=== PATIENT | male | born 1940 | race American Indian/Alaskan Native ===

== ENCOUNTER 2017-10-23 16:00 | Inpatient (IN) | payer MEDICARE ==
--- NOTE | 2017-10-23 16:56 | Emergency Department Report ---
Chief Complaint: Weakness Stated Complaint: WEAKNESS Time Seen by Provider: 10/23/17 16:54 - HPI History of Present Illness: pt is a 77 y/o aam with KS, CVA, Dementia, indwelling Peg, sent to ed by Dr. Gonzalez r/o sepsis / failure to thrive, lives with son , son states unable to walk tolerate po , decreased bowel and urine output. - Exam Vital Signs: Vital Signs 10/23/17 16:39 Temperature 98.7 F Pulse Rate 96 H Respiratory 16 Rate Blood Pressure 90/56 O2 Sat by Pulse 98 Oximetry MSE screening note: Focused history and physical exam performed. Due to findings the following was ordered: ED Disposition for MSE Condition: Stable
[2017-10-23 17:40] LABS: Basophils % (Auto) 0.4 % (0.0-1.8); Eosinophils % (Auto) 0.1 % (0.0-4.3); Hemoglobin 12.2 gm/dl (11.8-15.2); Mean Corpuscular HGB Conc 33 % (32-34); Mean Corpuscular Hemoglobin 28 pg (28-32); Mean Corpuscular Volume 86 fl (84-94); Platelet Count 297 K/mm3 (140-440); Red Blood Count 4.31 M/mm3 (3.65-5.03); Red Cell Distribution Width 13.9 % (13.2-15.2)
[2017-10-23 18:00] LABS: Alanine Aminotransferase 49 units/L (7-56); Albumin 3.2 g/dL (3.9-5); Albumin/Globulin Ratio 0.7 %; Alkaline Phosphatase 150 units/L (35-129); Anion Gap 24 mmol/L; BUN/Creatinine Ratio 26; Blood Urea Nitrogen 21 mg/dL (9-20); Calcium 9.3 mg/dL (8.4-10.2); Carbon Dioxide 21 mmol/L (22-30); Chloride 92.7 mmol/L (98-107); Glucose 181 mg/dL (75-100); Potassium 4.3 mmol/L (3.6-5.0); Sodium 133 mmol/L (137-145); Total Protein 8.1 g/dL (6.3-8.2)
[2017-10-23] MEDS ORDERED: NACL 0.9% 1000 ML 1,000 ML IV ONE (20:49)
[2017-10-23 22:07] LABS: Bacteria,Urine 4+ /HPF (Negative); Bilirubin,Urine NEG (Negative); Blood,Urine SM (Negative); Ketones,Urine TR mg/dL (Negative); Leukocyte Esterase,Urine MOD (Negative); Mucus,Urine 3+ /HPF; Nitrite,Urine NEG (Negative)
[2017-10-23 22:08] LABS: WBC,Urine > 182.0 /HPF (0.0-6.0)
[2017-10-23] MEDS ORDERED: ROCEPHIN/NS 1 GM/50 ML 1 GM/50 ML BAG IV ONE (22:17)
--- NOTE | 2017-10-23 22:25 | Emergency Department Report ---
- General Chief complaint: Weakness Stated complaint: WEAKNESS Time Seen by Provider: 10/23/17 16:54 Source: patient, old records reviewed (10/02/17 negative stress test) Mode of arrival: Wheelchair Limitations: No Limitations - History of Present Illness Initial comments: 77-year-old male with a past medical history of Parkinson, diabetes, CAD with MS , CABG with 2 vessel bypass, and hypertension presents to the hospital complaining of generalized weakness and poor by mouth intake. Patient is primarily wheelchair bound and has indwelling James secondary to urinary retention. It is not patient was scheduled for TURP which was canceled since patient was on anticoagulation. Patient lives alone and receives 24-hour care. Caretakers have noted a decline in health over the past few weeks with very poor by mouth intake and inability to walk now. Patient denies any pain, fever , nausea, vomiting, or diarrhea. Patient eats pured food as well as supplementation via PEG tube feeds. - Related Data Home Medications Medication Instructions Recorded Confirmed Last Taken Carbidopa/Levodopa 25-100 [Sinemet 1 tab PO QID 12/21/14 10/08/17 10/06/17 25/100] Lovastatin [Altoprev] 40 mg PO QPM 12/21/14 10/08/17 10/06/17 Zolpidem [Ambien] 10 mg PO HS 12/21/14 10/08/17 10/06/17 Ascorbic Acid [Vitamin C] 500 mg PO DAILY 10/02/17 10/08/17 10/06/17 Cholecalciferol (Vitamin D3) 1,000 unit PO DAILY 10/02/17 10/08/17 10/06/17 [Vitamin D3] Clopidogrel Bisulfate [Plavix] 75 mg PO DAILY 10/02/17 10/08/17 10/06/17 Donepezil HCl 5 mg PO QHS 10/02/17 10/08/17 10/06/17 Metoclopramide [Reglan TAB] 10 mg PO TID 10/02/17 10/08/17 10/06/17 Pentoxifylline 1 tab PO BID 10/02/17 10/08/17 10/06/17 Sennosides [Senna Laxative] 8.6 mg PO DAILY 10/02/17 10/08/17 10/06/17 Timolol 0.5% 1 drop OU DAILY 10/02/17 10/08/17 10/06/17 amLODIPine [Norvasc] 10 mg PO DAILY 10/02/17 10/08/17 10/06/17 guaiFENesin/DEXTROMETHORPHAN 10 ml PO PRN PRN 10/02/17 10/08/17 10/06/17 [Diabetic Tussin Dm Max-Str Liq] Previous Rx's Medication Instructions Recorded Last Taken Type Gabapentin [Neurontin] 100 mg PO Q8HR #90 capsule 10/10/17 Unknown Rx traMADol [Ultram 50 MG tab] 50 mg PO QID PRN #20 tablet 10/10/17 Unknown Rx Allergies Allergy/AdvReac Type Severity Reaction Status Date / Time No Known Allergies Allergy Verified 09/26/17 17:35 ED Review of Systems ROS: Stated complaint: WEAKNESS Other details as noted in HPI Comment: All other systems reviewed and negative Other: Constitutional: No fevers chills Eyes: No eye pain visual changes ENT: No ear pain or throat pain Neck: Denies pain Respiratory: Denies cough wheezing shortness of breath Cardiovascular: Denies chest pain, palpitations, syncope GI: Denies abdominal pain, nausea, vomiting, diarrhea : Indwelling James history a urine tent Musculoskeletal: Denies back pain Skin: Denies rash, lesions, erythema Neurologic: Parkinson's disease with chronic leg weakness Psychiatric: Denies suicidal ideation, hallucinations ED Past Medical Hx - Past Medical History Previous Medical History?: Yes Hx Hypertension: Yes (X 35 YRS) Hx CVA: Yes Hx Heart Attack/AMI: Yes (1993 , 2002) Hx Diabetes: Yes Hx HIV: No Additional medical history: Left hip, Back surgery, Right eye cataract, Recent left eye cataract surgery - Surgical History Past Surgical History?: Yes Hx Coronary Stent: No Hx Open Heart Surgery: Yes (CABG 2000, X2) Additional Surgical History: Left cataract surgery 11-17-2014 - Social History Smoking Status: Never Smoker Substance Use Type: None - Medications Home Medications: Home Medications Medication Instructions Recorded Confirmed Last Taken Type Carbidopa/Levodopa 25-100 [Sinemet 1 tab PO QID 12/21/14 10/08/17 10/06/17 History 25/100] Lovastatin [Altoprev] 40 mg PO QPM 12/21/14 10/08/17 10/06/17 History Zolpidem [Ambien] 10 mg PO HS 12/21/14 10/08/17 10/06/17 History Ascorbic Acid [Vitamin C] 500 mg PO DAILY 10/02/17 10/08/17 10/06/17 History Cholecalciferol (Vitamin D3) 1,000 unit PO DAILY 10/02/17 10/08/17 10/06/17 History [Vitamin D3] Clopidogrel Bisulfate [Plavix] 75 mg PO DAILY 10/02/17 10/08/17 10/06/17 History Donepezil HCl 5 mg PO QHS 10/02/17 10/08/17 10/06/17 History Metoclopramide [Reglan TAB] 10 mg PO TID 10/02/17 10/08/17 10/06/17 History Pentoxifylline 1 tab PO BID 10/02/17 10/08/17 10/06/17 History Sennosides [Senna Laxative] 8.6 mg PO DAILY 10/02/17 10/08/17 10/06/17 History Timolol 0.5% 1 drop OU DAILY 10/02/17 10/08/17 10/06/17 History amLODIPine [Norvasc] 10 mg PO DAILY 10/02/17 10/08/17 10/06/17 History guaiFENesin/DEXTROMETHORPHAN 10 ml PO PRN PRN 10/02/17 10/08/17 10/06/17 History [Diabetic Tussin Dm Max-Str Liq] Gabapentin [Neurontin] 100 mg PO Q8HR #90 capsule 10/10/17 Unknown Rx traMADol [Ultram 50 MG tab] 50 mg PO QID PRN #20 tablet 10/10/17 Unknown Rx ED Physical Exam - General Limitations: No Limitations - Other Other exam information: General: No limitations, patient is alert in no acute distress Head exam: Atraumatic, normocephalic Eyes exam: Normal appearance, pupils equal reactive to light ENT: Moist mucous membrane, normal oropharynx Neck exam: Normal inspection, full range of motion, no meningismus nontender Respiratory exam: Clear to auscultation bilateral, no wheezes, rales, crackles Cardiovascular: Normal rate and rhythm, CABG scar Abdomen: Soft, nondistended, and nontender, with normal bowel sounds, no rebound, or guarding Extremity: Full range of motion normal inspection no deformity : Circumcised, indwelling James catheter Back: Normal Inspection, full range of motion, no tenderness Neurologic: Alert, oriented x3, cranial nerves intact, sensation grossly intact. Patient has not had any antigravity movement of his lower extremities and has mild movement of his toes and feet. 5/5 upper extremity strength. Speech is soft spoken but clear without dysarthria Psychiatric: normal affect, normal mood Skin: Warm, dry, intact ED Course Vital Signs 10/23/17 10/23/17 10/23/17 16:39 20:00 20:05 Temperature 98.7 F Pulse Rate 96 H 96 H Respiratory 16 26 H 16 Rate Blood Pressure 90/56 112/62 O2 Sat by Pulse 98 99 99 Oximetry 10/23/17 10/23/17 10/23/17 20:30 21:00 21:30 Temperature Pulse Rate 96 H 97 H 97 H Respiratory 18 19 25 H Rate Blood Pressure 113/68 125/68 126/73 O2 Sat by Pulse 100 100 100 Oximetry - Reevaluation(s) Reevaluation #1: 10/23/17 22:29 Systolic blood pressure improved prior to administration of normal saline. 1L liter of normal saline and Rocephin initiated in the ED. ED Medical Decision Making - Lab Data Result diagrams: 10/23/17 17:01 10/23/17 17:01 Lab Results 10/23/17 10/23/17 10/23/17 Range/Units 17:01 17:01 21:44 WBC 18.0 H (4.5-11.0) K/mm3 RBC 4.31 (3.65-5.03) M/mm3 Hgb 12.2 (11.8-15.2) gm/dl Hct 37.0 (35.5-45.6) % MCV 86 (84-94) fl MCH 28 (28-32) pg MCHC 33 (32-34) % RDW 13.9 (13.2-15.2) % Plt Count 297 (140-440) K/mm3 Lymph % (Auto) 5.3 L (13.4-35.0) % [place] % (Auto) 6.4 (0.0-7.3) % Eos % (Auto) 0.1 (0.0-4.3) % Baso % (Auto) 0.4 (0.0-1.8) % Lymph # 0.9 L (1.2-5.4) K/mm3 [place] # 1.1 H (0.0-0.8) K/mm3 Eos # 0.0 (0.0-0.4) K/mm3 Baso # 0.1 (0.0-0.1) K/mm3 Seg Neutrophils % 87.8 H (40.0-70.0) % Seg Neutrophils # 15.8 H (1.8-7.7) K/mm3 Sodium 133 L (137-145) mmol/L Potassium 4.3 (3.6-5.0) mmol/L Chloride 92.7 L (98-107) mmol/L Carbon Dioxide 21 L (22-30) mmol/L Anion Gap 24 mmol/L BUN 21 H (9-20) mg/dL Creatinine 0.8 (0.8-1.5) mg/dL Estimated GFR > 60 ml/min BUN/Creatinine Ratio 26 % Glucose 181 H (75-100) mg/dL Calcium 9.3 (8.4-10.2) mg/dL Total Bilirubin 0.70 (0.1-1.2) mg/dL AST 74 H (5-40) units/L ALT 49 (7-56) units/L Alkaline Phosphatase 150 H (35-129) units/L Troponin T 0.024 (0.00-0.029) ng/mL Total Protein 8.1 (6.3-8.2) g/dL Albumin 3.2 L (3.9-5) g/dL Albumin/Globulin Ratio 0.7 % Urine Color Yellow (Yellow) Urine Turbidity Clear (Clear) Urine pH 5.0 (5.0-7.0) Ur Specific [place] 1.020 (1.003-1.030) Urine Protein 100 mg/dl (Negative) mg/dL Urine Glucose (UA) Neg (Negative) mg/dL Urine Ketones Tr (Negative) mg/dL Urine Blood Sm (Negative) Urine Nitrite Neg (Negative) Urine Bilirubin Neg (Negative) Urine Urobilinogen 2.0 (<2.0) mg/dL Ur Leukocyte Esterase Mod (Negative) Urine WBC (Auto) > 182.0 H (0.0-6.0) /HPF Urine RBC (Auto) 138.0 (0.0-6.0) /HPF Urine Bacteria (Auto) 4+ (Negative) /HPF Urine WBC Clumps 3+ /HPF Urine Mucus 3+ /HPF - EKG Data -: EKG Interpreted by Me (KALYAN) EKG shows normal: sinus rhythm, axis (-53), QRS complexes (125), ST-T waves (no ST elevation or T-wave inversion) Rate: normal (97) - EKG Data When compared to previous EKG there are: no significant change (10/07/17) - Radiology Data Radiology results: image reviewed (cxr: naf) - Medical Decision Making Leukocytosis likely secondary to UTI with history urinary retention and swelling James. Urine sample obtained from a new bag placed on the patient however, James was not changed. Patient also has mild hyponatremia. Rocephin and normal saline initiated - Differential Diagnosis uti, pneumonia, dehydation Critical Care Time: No Critical care attestation.: If time is entered above; I have spent that time in minutes in the direct care of this critically ill patient, excluding procedure time. ED Disposition Clinical Impression: UTI (urinary tract infection), Parkinson disease, Weakness, Dysphagia, Gastrostomy present, Leukocytosis, Diabetes, Hx of CABG Disposition: DC-01 TO HOME OR SELFCARE Is pt being admited?: Yes Condition: Stable Time of Disposition: 22:32 (Dr Marquez/hosp)
[2017-10-23] MEDS ORDERED: cefTRIAXone 1 GM in NACL 0.9% 20 ML IV ONE (22:30)
--- NOTE | 2017-10-23 22:31 | History and Physical Report ---
History of Present Illness Chief complaint: I feel weak History of present illness: 77 YO Male with Parkinsons Disease,CVA,CAD S/P CABG, S/P Stent placement, [place], DM , HTN, Urinary Retention S/P indwelling ramos catheter placement presents to ED for evaluation. Pt states that he has been feeling weak and tired for the past week. Pt lives at home and has 24 hour care. Pt private household worker stated that patient has decreased oral intake over the past 2 weeks, as well ad progressive weakness. No reports of fever, chills, CP, Palpitations, NVD, Syncope, productive cough, recent ill contacts. Pt seen and evaluated in ED and found to have Catheter Associated UTI complicated by sepsis. Pt initiated on IV abx, and sepsis protocol initiated. Past History Past Medical History: acute OH, diabetes, hypertension, stroke Past Surgical History: CABG, Other (Left cataract surgery) Social history: single Family history: no significant family history, diabetes, hypertension Medications and Allergies Allergies Allergy/AdvReac Type Severity Reaction Status Date / Time No Known Allergies Allergy Verified 09/26/17 17:35 Home Medications Medication Instructions Recorded Confirmed Last Taken Type Carbidopa/Levodopa 25-100 [Sinemet 1 tab PO QID 12/21/14 10/08/17 10/06/17 History 25/100] Lovastatin [Altoprev] 40 mg PO QPM 12/21/14 10/08/17 10/06/17 History Zolpidem [Ambien] 10 mg PO HS 12/21/14 10/08/17 10/06/17 History Ascorbic Acid [Vitamin C] 500 mg PO DAILY 10/02/17 10/08/17 10/06/17 History Cholecalciferol (Vitamin D3) 1,000 unit PO DAILY 10/02/17 10/08/17 10/06/17 History [Vitamin D3] Clopidogrel Bisulfate [Plavix] 75 mg PO DAILY 10/02/17 10/08/17 10/06/17 History Donepezil HCl 5 mg PO QHS 10/02/17 10/08/17 10/06/17 History Metoclopramide [Reglan TAB] 10 mg PO TID 10/02/17 10/08/17 10/06/17 History Pentoxifylline 1 tab PO BID 10/02/17 10/08/17 10/06/17 History Sennosides [Senna Laxative] 8.6 mg PO DAILY 10/02/17 10/08/17 10/06/17 History Timolol 0.5% 1 drop OU DAILY 10/02/17 10/08/17 10/06/17 History amLODIPine [Norvasc] 10 mg PO DAILY 10/02/17 10/08/17 10/06/17 History guaiFENesin/DEXTROMETHORPHAN 10 ml PO PRN PRN 10/02/17 10/08/17 10/06/17 History [Diabetic Tussin Dm Max-Str Liq] Gabapentin [Neurontin] 100 mg PO Q8HR #90 capsule 10/10/17 Unknown Rx traMADol [Ultram 50 MG tab] 50 mg PO QID PRN #20 tablet 10/10/17 Unknown Rx Active Meds: Active Medications Sodium Chloride (Nacl 0.9% 1000 Ml) 1,000 mls @ 500 mls/hr IV BOLUS ONE Stop: 10/23/17 22:48 Last Admin: 10/23/17 21:44 Dose: 500 mls/hr Ceftriaxone Sodium 1 gm/ (Sodium Chloride) 20 mls @ 20 mls/10 min IV ONCE.ED ONE Stop: 10/23/17 22:39 Review of Systems Constitutional: weakness, malaise, poor appetite, no weight loss, no weight gain , no fever, no chills Ears, nose, mouth and throat: no ear pain, no ear discharge, no tinnitis, no decreased hearing, no nose pain, no nasal congestion Cardiovascular: no chest pain, no orthopnea, no palpitations, no rapid/ irregular heart beat, no edema, no syncope Respiratory: no cough, no cough with sputum, no excessive sputum, no hemoptysis , no shortness of breath Gastrointestinal: no abdominal pain, no nausea, no vomiting, no diarrhea, no constipation Genitourinary Male: no hematuria, no flank pain, no discharge, no urinary frequency, no urinary hesitancy, no nocturia, no incontinence Rectal: no pain, no incontinence, no bleeding Musculoskeletal: no neck stiffness, no neck pain, no shooting arm pain, no arm numbness/tingling, no low back pain, no shooting leg pain, no leg numbness/ tingling Integumentary: no rash, no pruritis, no redness, no sores, no wounds, no jaundice Neurological: no head injury, no transient paralysis, no paralysis, no weakness , no parathesias, no numbness, no tingling, no seizures, no syncope Psychiatric: no anxiety, no memory loss, no sleep disturbances, no insomnia, no hypersomnia, no change in appetite, no change in libido Endocrine: no cold intolerance, no heat intolerance, no polyphagia, no excessive thirst, no polydipsia, no polyuria, no nocturia Hematologic/Lymphatic: no easy bruising, no easy bleeding Allergic/Immunologic: no urticaria, no allergic rhinitis, no wheezing Exam - Constitutional Vitals: Temp Pulse Resp BP Pulse Ox 98.7 F 97 H 25 H 126/73 100 10/23/17 16:39 10/23/17 21:30 10/23/17 21:30 10/23/17 21:30 10/23/17 21:30 General appearance: Present: mild distress, cachectic, disheveled - EENT Eyes: Present: PERRL ENT: hearing intact, clear oral mucosa - Neck Neck: Present: supple, normal ROM - Respiratory Respiratory: bilateral: diminished, wheezing - Cardiovascular Rhythm: irregularly irregular Heart Sounds: Present: S1 & S2. Absent: rub, click - Extremities Extremities: pulses symmetrical, No edema Peripheral Pulses: within normal limits - Abdominal General gastrointestinal: Present: soft, non-tender, non-distended, normal bowel sounds Male genitourinary: Present: normal - Integumentary Integumentary: Absent: clear, warm, dry - Musculoskeletal Musculoskeletal: generalized weakness - Psychiatric Psychiatric: appropriate mood/affect, cooperative - Neurologic Neurologic: CNII-XII intact Results - Labs CBC & Chem 7: 10/23/17 17:01 10/23/17 17:01 Labs: Abnormal lab results 10/23/17 10/23/17 10/23/17 Range/Units 17:01 17:01 21:44 WBC 18.0 H (4.5-11.0) K/mm3 Lymph % (Auto) 5.3 L (13.4-35.0) % Lymph # 0.9 L (1.2-5.4) K/mm3 [place] # 1.1 H (0.0-0.8) K/mm3 Seg Neutrophils % 87.8 H (40.0-70.0) % Seg Neutrophils # 15.8 H (1.8-7.7) K/mm3 Sodium 133 L (137-145) mmol/L Chloride 92.7 L (98-107) mmol/L Carbon Dioxide 21 L (22-30) mmol/L BUN 21 H (9-20) mg/dL Glucose 181 H (75-100) mg/dL AST 74 H (5-40) units/L Alkaline Phosphatase 150 H (35-129) units/L Albumin 3.2 L (3.9-5) g/dL Urine WBC (Auto) > 182.0 H (0.0-6.0) /HPF Assessment and Plan - Patient Problems (1) Catheter-associated urinary tract infection Current Visit: Yes Status: Acute Plan to address problem: IV abx, IVF resuscitation, supportive care (2) Sepsis Current Visit: Yes Status: Acute Plan to address problem: Sepsis Protocol: IV abx, supplemental oxygen, nebs, serial lactic levels, monitor uop q shift, blood cultures, urine cultures. IV pressor support as clinically indicated. (3) Hyponatremia syndrome Current Visit: Yes Status: Acute Plan to address problem: IVF resuscitation, repeat bmp. (4) Metabolic acidosis Current Visit: Yes Status: Acute Plan to address problem: IVF resuscitation, treat sepsis, serial lactic acid levels (5) Parkinsons disease Current Visit: Yes Status: Acute (6) DVT prophylaxis Current Visit: Yes Status: Acute
[2017-10-23] MEDS ORDERED: NACL 0.9% 1000 ML IV ONE (22:32)
[2017-10-23] MEDS ORDERED: VANCOMYCIN VIAL IV ONE (22:32)
[2017-10-23] MEDS ORDERED: ZOFRAN IV PRN (22:32)
[2017-10-23] MEDS ORDERED: TYLENOL PO PRN (22:32)
[2017-10-23] MEDS ORDERED: PROVENTIL IH PRN (22:32)
[2017-10-23] MEDS ORDERED: GUAIFENESIN PO PRN (22:36)
[2017-10-23] MEDS ORDERED: DEXTROMETHORPHAN PO PRN (22:36)
[2017-10-23] MEDS ORDERED: VANCOMYCIN 1,250 MG in NACL 0.9% 250ML 250 ML IV ONE (23:00)
[2017-10-23] MEDS ORDERED: GUAIFENESIN DM SYRUP PO PRN (23:00)
[2017-10-23] MEDS ORDERED: VANCOMYCIN PHARMACY TO DOSE IV SCH (23:00)
[2017-10-24] MEDS ORDERED: NACL 0.9% 1000 ML 1,000 ML ONE (00:20)
[2017-10-24 04:38] LABS: Basophils % (Auto) 0.1 % (0.0-1.8); Eosinophils % (Auto) 0.3 % (0.0-4.3); Hematocrit 31.6 % (35.5-45.6); Hemoglobin 10.8 gm/dl (11.8-15.2); Mean Corpuscular HGB Conc 34 % (32-34); Mean Corpuscular Hemoglobin 29 pg (28-32); Mean Corpuscular Volume 86 fl (84-94); Platelet Count 234 K/mm3 (140-440); Red Blood Count 3.68 M/mm3 (3.65-5.03); Red Cell Distribution Width 14.1 % (13.2-15.2); White Blood Count 14.5 K/mm3 (4.5-11.0)
[2017-10-24] MEDS: NEURONTIN PO SCH ×4 (06:00→22:00)
[2017-10-24] MEDS: ULTRAM PO PRN ×2 (07:53→20:51)
[2017-10-24] MEDS: REGLAN PO SCH ×3 (07:53→20:00)
[2017-10-24] MEDS: SINEMET PO SCH ×4 (09:35→23:10)
[2017-10-24] MEDS: VITAMIN D3 PO SCH (09:35)
[2017-10-24] MEDS: PLAVIX PO SCH (09:35)
[2017-10-24] MEDS: SENOKOT PO SCH (09:35)
[2017-10-24] MEDS: VITAMIN C PO SCH (09:35)
[2017-10-24] MEDS: NORVASC PO SCH (09:36)
[2017-10-24] MEDS: TRENTAL PO SCH ×2 (09:36→23:12)
[2017-10-24] MEDS: TIMOPTIC OU SCH (09:37)
[2017-10-24] MEDS ORDERED: NON-FORMULARY (Cholecalciferol (Vitamin D3) [Vitamin D3] 1,000 UNIT) PO SCH (10:00)
[2017-10-24] MEDS ORDERED: TIMOLOL 0.5% OU SCH (10:00)
[2017-10-24] MEDS ORDERED: NON-FORMULARY (Ascorbic Acid [Vitamin C] 500 MG) PO SCH (10:00)
[2017-10-24] MEDS ORDERED: ROCEPHIN/NS 2 GM/100 ML 2 GM/100 ML BAG IV SCH (10:00)
--- NOTE | 2017-10-24 10:15 | Progress Note ---
Assessment and Plan Assessment and plan: Urinary tract infection, catheter associated. He is on Ceftriaxone, Vancomycin. Sepsis. due to UTI. On Ceftriaxone and Vancomycin. Blood cultures drawn Dysphagia. He had history of dysphagia and has PEG tube which he uses only for medications. Repeat swallow evaluation. Diabetes mellitus Type 2. Check fingerstick Qac and HS CAD s/p stent, CABG. Stable History of stroke Hypertension Full code status History Interval history: Difficulty swallowing, Generalized weakness Hospitalist Physical - Physical exam Narrative exam: GEN APPEARANCE : Not in acute distress,malnourished HEENT: Normocephalic Atraumatic NECK : supple, no JVD LUNGS: clear to auscultation bilaterally, no rales, no wheeze HEART: S1 and S2 regular, tachycardia, no murmurs, rubs or gallop, ABD: Soft, no tenderness, no distension, normal bowel sounds, PEG tube EXT: No edema, no clubbing, no cyanosis NEURO: Awake,alert,oriented x 3, no facial asymmetry,no focal signs, - Constitutional Vitals: Temp Pulse Resp BP Pulse Ox 98.6 F 97 H 18 119/63 97 10/24/17 07:57 10/24/17 09:36 10/24/17 07:57 10/24/17 09:36 10/24/17 07:57 General appearance: Present: cachectic Results - Labs CBC & Chem 7: 10/24/17 04:07 10/23/17 17:01 Labs: Laboratory Last Values WBC 14.5 K/mm3 (4.5-11.0) H 10/24/17 04:07 RBC 3.68 M/mm3 (3.65-5.03) 10/24/17 04:07 Hgb 10.8 gm/dl (11.8-15.2) L 10/24/17 04:07 Hct 31.6 % (35.5-45.6) L 10/24/17 04:07 MCV 86 fl (84-94) 10/24/17 04:07 MCH 29 pg (28-32) 10/24/17 04:07 MCHC 34 % (32-34) 10/24/17 04:07 RDW 14.1 % (13.2-15.2) 10/24/17 04:07 Plt Count 234 K/mm3 (140-440) 10/24/17 04:07 Lymph % (Auto) 7.7 % (13.4-35.0) L 10/24/17 04:07 [place] % (Auto) 7.5 % (0.0-7.3) H 10/24/17 04:07 Eos % (Auto) 0.3 % (0.0-4.3) 10/24/17 04:07 Baso % (Auto) 0.1 % (0.0-1.8) 10/24/17 04:07 Lymph # 1.1 K/mm3 (1.2-5.4) L 10/24/17 04:07 [place] # 1.1 K/mm3 (0.0-0.8) H 10/24/17 04:07 Eos # 0.0 K/mm3 (0.0-0.4) 10/24/17 04:07 Baso # 0.0 K/mm3 (0.0-0.1) 10/24/17 04:07 Seg Neutrophils % 84.4 % (40.0-70.0) H 10/24/17 04:07 Seg Neutrophils # 12.2 K/mm3 (1.8-7.7) H 10/24/17 04:07 Sodium 133 mmol/L (137-145) L 10/23/17 17:01 Potassium 4.3 mmol/L (3.6-5.0) 10/23/17 17:01 Chloride 92.7 mmol/L (98-107) L 10/23/17 17:01 Carbon Dioxide 21 mmol/L (22-30) L 10/23/17 17:01 Anion Gap 24 mmol/L 10/23/17 17:01 BUN 21 mg/dL (9-20) H 10/23/17 17:01 Creatinine 0.8 mg/dL (0.8-1.5) 10/23/17 17:01 Estimated GFR > 60 ml/min 10/23/17 17:01 BUN/Creatinine Ratio 26 % 10/23/17 17:01 Glucose 181 mg/dL (75-100) H 10/23/17 17:01 POC Glucose 132 (70-105) H 10/24/17 07:57 Lactic Acid 0.90 mmol/L (0.7-2.0) 10/24/17 04:07 Calcium 9.3 mg/dL (8.4-10.2) 10/23/17 17:01 Total Bilirubin 0.70 mg/dL (0.1-1.2) 10/23/17 17:01 AST 74 units/L (5-40) H 10/23/17 17:01 ALT 49 units/L (7-56) 10/23/17 17:01 Alkaline Phosphatase 150 units/L (35-129) H 10/23/17 17:01 Troponin T 0.024 ng/mL (0.00-0.029) 10/23/17 17:01 Total Protein 8.1 g/dL (6.3-8.2) 10/23/17 17:01 Albumin 3.2 g/dL (3.9-5) L 10/23/17 17:01 Albumin/Globulin Ratio 0.7 % 10/23/17 17:01 Urine Color Yellow (Yellow) 10/23/17 21:44 Urine Turbidity Clear (Clear) 10/23/17 21:44 Urine pH 5.0 (5.0-7.0) 10/23/17 21:44 Ur Specific [place] 1.020 (1.003-1.030) 10/23/17 21:44 Urine Protein 100 mg/dl mg/dL (Negative) 10/23/17 21:44 Urine Glucose (UA) Neg mg/dL (Negative) 10/23/17 21:44 Urine Ketones Tr mg/dL (Negative) 10/23/17 21:44 Urine Blood Sm (Negative) 10/23/17 21:44 Urine Nitrite Neg (Negative) 10/23/17 21:44 Urine Bilirubin Neg (Negative) 10/23/17 21:44 Urine Urobilinogen 2.0 mg/dL (<2.0) 10/23/17 21:44 Ur Leukocyte Esterase Mod (Negative) 10/23/17 21:44 Urine WBC (Auto) > 182.0 /HPF (0.0-6.0) H 10/23/17 21:44 Urine RBC (Auto) 138.0 /HPF (0.0-6.0) 10/23/17 21:44 Urine Bacteria (Auto) 4+ /HPF (Negative) 10/23/17 21:44 Urine WBC Clumps 3+ /HPF 10/23/17 21:44 Urine Mucus 3+ /HPF 10/23/17 21:44
[2017-10-24] MEDS: cefTRIAXone 2 GM in NACL 0.9% 20 ML IV SCH (10:22)
--- NOTE | 2017-10-24 11:44 | XRay Report ---
FINAL REPORT EXAM: XR CHEST 1V AP HISTORY: weakness and TECHNIQUE: upright single view chest PRIORS: None. FINDINGS: Cardiac and mediastinal contours are unremarkable. No focal pulmonary infiltrate is identified. No pleural fluid collection seen. Pulmonary vasculature is unremarkable. Sternotomy wires are noted. IMPRESSION: Negative single-view chest
[2017-10-24] MEDS: NOVOLOG SUB-Q SCH ×2 (12:26→17:44)
[2017-10-24] MEDS: VANCOMYCIN/NS 1 GM/250 ML 1 GM/250 ML BAG IV SCH (13:28)
[2017-10-24] MEDS ORDERED: NON-FORMULARY (Lovastatin [Altoprev] 40 MG) PO SCH (18:00)
[2017-10-24] MEDS: ARICEPT PO SCH (23:08)
[2017-10-24] MEDS: AMBIEN PO SCH (23:09)
[2017-10-24] MEDS: PRAVACHOL PO SCH (23:10)
[2017-10-25 05:28] LABS: Hematocrit 31.4 % (35.5-45.6); Hemoglobin 10.6 gm/dl (11.8-15.2); Mean Corpuscular HGB Conc 34 % (32-34); Mean Corpuscular Hemoglobin 29 pg (28-32); Mean Corpuscular Volume 85 fl (84-94); Platelet Count 284 K/mm3 (140-440); Red Cell Distribution Width 14.1 % (13.2-15.2); White Blood Count 11.2 K/mm3 (4.5-11.0)
[2017-10-25 05:45] LABS: BUN/Creatinine Ratio 22; Blood Urea Nitrogen 11 mg/dL (9-20); Calcium 8.4 mg/dL (8.4-10.2); Carbon Dioxide 22 mmol/L (22-30); Glucose 138 mg/dL (75-100)
[2017-10-25 05:46] LABS: Anion Gap 18 mmol/L; Chloride 99.7 mmol/L (98-107); Potassium 3.7 mmol/L (3.6-5.0); Sodium 136 mmol/L (137-145)
[2017-10-25] MEDS: REGLAN PO SCH ×3 (07:49→20:30)
[2017-10-25] MEDS: NOVOLOG SUB-Q SCH ×4 (08:13→22:40)
--- NOTE | 2017-10-25 09:26 | Progress Note ---
Assessment and Plan Assessment and plan: Urinary tract infection, catheter associated. He is on Ceftriaxone, Vancomycin. Sepsis. Etiology secondary to UTI. Continue Ceftriaxone and Vancomycin. Follow -up blood cultures Dysphagia. He had history of dysphagia and has PEG tube which he uses only for medications. Repeat swallow evaluation. Diabetes mellitus Type 2. Continue sliding-scale insulin and Accu-Cheks CAD s/p stent, CABG. Stable History of stroke Hypertension Deconditioning. PT eval Full code status History Interval history: no new issues overnight. Hospitalist Physical - Constitutional Vitals: Temp Pulse Resp BP Pulse Ox 98.8 F 68 20 177/69 100 10/25/17 08:21 10/25/17 08:21 10/25/17 08:21 10/25/17 08:21 10/25/17 08:21 General appearance: Present: cachectic - EENT Eyes: Present: PERRL, EOM intact ENT: hearing intact, clear oral mucosa, dentition normal - Neck Neck: Present: supple, normal ROM - Respiratory Respiratory effort: normal Respiratory: bilateral: CTA - Cardiovascular Rhythm: regular Heart Sounds: Present: S1 & S2. Absent: gallop, rub - Extremities Extremities: no ischemia, No edema, Full ROM - Abdominal General gastrointestinal: soft, non-tender, non-distended, normal bowel sounds - Integumentary Integumentary: Present: clear, warm, dry - Neurologic Neurologic: CNII-XII intact, moves all extremities Results - Labs CBC & Chem 7: 10/25/17 04:10 10/25/17 04:10 Labs: Laboratory Last Values WBC 11.2 K/mm3 (4.5-11.0) H 10/25/17 04:10 RBC 3.70 M/mm3 (3.65-5.03) 10/25/17 04:10 Hgb 10.6 gm/dl (11.8-15.2) L 10/25/17 04:10 Hct 31.4 % (35.5-45.6) L 10/25/17 04:10 MCV 85 fl (84-94) 10/25/17 04:10 MCH 29 pg (28-32) 10/25/17 04:10 MCHC 34 % (32-34) 10/25/17 04:10 RDW 14.1 % (13.2-15.2) 10/25/17 04:10 Plt Count 284 K/mm3 (140-440) 10/25/17 04:10 Lymph % (Auto) 7.7 % (13.4-35.0) L 10/24/17 04:07 Ramsey % (Auto) 7.5 % (0.0-7.3) H 10/24/17 04:07 Eos % (Auto) 0.3 % (0.0-4.3) 10/24/17 04:07 Baso % (Auto) 0.1 % (0.0-1.8) 10/24/17 04:07 Lymph # 1.1 K/mm3 (1.2-5.4) L 10/24/17 04:07 Ramsey # 1.1 K/mm3 (0.0-0.8) H 10/24/17 04:07 Eos # 0.0 K/mm3 (0.0-0.4) 10/24/17 04:07 Baso # 0.0 K/mm3 (0.0-0.1) 10/24/17 04:07 Seg Neutrophils % 84.4 % (40.0-70.0) H 10/24/17 04:07 Seg Neutrophils # 12.2 K/mm3 (1.8-7.7) H 10/24/17 04:07 Sodium 136 mmol/L (137-145) L 10/25/17 04:10 Potassium 3.7 mmol/L (3.6-5.0) 10/25/17 04:10 Chloride 99.7 mmol/L (98-107) 10/25/17 04:10 Carbon Dioxide 22 mmol/L (22-30) 10/25/17 04:10 Anion Gap 18 mmol/L 10/25/17 04:10 BUN 11 mg/dL (9-20) 10/25/17 04:10 Creatinine 0.5 mg/dL (0.8-1.5) L 10/25/17 04:10 Estimated GFR > 60 ml/min 10/25/17 04:10 BUN/Creatinine Ratio 22 % 10/25/17 04:10 Glucose 138 mg/dL (75-100) H 10/25/17 04:10 POC Glucose 188 (70-105) H 10/25/17 07:25 Hemoglobin A1c 7.0 % (4-6) H 10/24/17 04:07 Lactic Acid 0.90 mmol/L (0.7-2.0) 10/24/17 04:07 Calcium 8.4 mg/dL (8.4-10.2) 10/25/17 04:10 Total Bilirubin 0.70 mg/dL (0.1-1.2) 10/23/17 17:01 AST 74 units/L (5-40) H 10/23/17 17:01 ALT 49 units/L (7-56) 10/23/17 17:01 Alkaline Phosphatase 150 units/L (35-129) H 10/23/17 17:01 Troponin T 0.024 ng/mL (0.00-0.029) 10/23/17 17:01 Total Protein 8.1 g/dL (6.3-8.2) 10/23/17 17:01 Albumin 3.2 g/dL (3.9-5) L 10/23/17 17:01 Albumin/Globulin Ratio 0.7 % 10/23/17 17:01 Urine Color Yellow (Yellow) 10/23/17 21:44 Urine Turbidity Clear (Clear) 10/23/17 21:44 Urine pH 5.0 (5.0-7.0) 10/23/17 21:44 Ur Specific [place] 1.020 (1.003-1.030) 10/23/17 21:44 Urine Protein 100 mg/dl mg/dL (Negative) 10/23/17 21:44 Urine Glucose (UA) Neg mg/dL (Negative) 10/23/17 21:44 Urine Ketones Tr mg/dL (Negative) 10/23/17 21:44 Urine Blood Sm (Negative) 10/23/17 21:44 Urine Nitrite Neg (Negative) 10/23/17 21:44 Urine Bilirubin Neg (Negative) 10/23/17 21:44 Urine Urobilinogen 2.0 mg/dL (<2.0) 10/23/17 21:44 Ur Leukocyte Esterase Mod (Negative) 10/23/17 21:44 Urine WBC (Auto) > 182.0 /HPF (0.0-6.0) H 10/23/17 21:44 Urine RBC (Auto) 138.0 /HPF (0.0-6.0) 10/23/17 21:44 Urine Bacteria (Auto) 4+ /HPF (Negative) 10/23/17 21:44 Urine WBC Clumps 3+ /HPF 10/23/17 21:44 Urine Mucus 3+ /HPF 10/23/17 21:44
--- NOTE | 2017-10-25 09:32 | Gastroenterology Consultation ---
<PAT RYAN - Last Filed: 10/25/17 10:03> History of Present Illness - Reason for Consult Consult date: 10/25/17 dysphagia Requesting physician: BOWEN HARTLEY - History of Present Illness Patient is a 77 y/o male with PMH of Parkinson's disease, CVA, CAD, TX, DM, HTN , and Urinary retention s/p indwelling ramos catheter placement who presented to the ED with c/o weakness and decreased oral intake. He was found to have a catheter associated UTI on admission and is currently being treated for sepsis. GI has been consulted for dysphagia. He is previously known to our service from a recent consult for dysphagia on 10/08/17. The pt has had chronic oropharyngeal dysphagia due to Parkinson's disease with a G-tube placed 2 years ago, however pt has only been using G-tube for meds up until this point. He reports his dysphagia has progressively worsened over the past 6 weeks with difficultly swallowing liquids and solids with associated coughing with po intake and wt loss. He underwent a modified barium swallow on 10/09/17 that revealed oropharyngeal dysphagia due to Parkinson's. No F/C/NS. No change in bowel habits. No GI bleed, no abd pain, N/V. Past History Past Medical History: acute TX, CAD, diabetes, hypertension, stroke, other ( urinary retention with indwelling ramos catheter) Past Surgical History: CABG, total hip replacement, Other (abd surgery, cataract surgery) Social history: single, Lives alone Family history: no significant family history, diabetes, hypertension Medications and Allergies Allergies Allergy/AdvReac Type Severity Reaction Status Date / Time No Known Allergies Allergy Verified 09/26/17 17:35 Home Medications Medication Instructions Recorded Confirmed Last Taken Type Carbidopa/Levodopa 25-100 [Sinemet 1 tab PO QID 12/21/14 10/24/17 10/06/17 History 25/100] Lovastatin [Altoprev] 40 mg PO QPM 12/21/14 10/24/17 10/06/17 History Zolpidem [Ambien] 10 mg PO HS 12/21/14 10/24/17 10/06/17 History Ascorbic Acid [Vitamin C] 500 mg PO DAILY 10/02/17 10/24/17 10/06/17 History Cholecalciferol (Vitamin D3) 1,000 unit PO DAILY 10/02/17 10/24/17 10/06/17 History [Vitamin D3] Clopidogrel Bisulfate [Plavix] 75 mg PO DAILY 10/02/17 10/24/17 10/06/17 History Donepezil HCl 5 mg PO QHS 10/02/17 10/24/17 10/06/17 History Metoclopramide [Reglan TAB] 10 mg PO TID 10/02/17 10/24/17 10/06/17 History Pentoxifylline 1 tab PO BID 10/02/17 10/24/17 10/06/17 History Sennosides [Senna Laxative] 8.6 mg PO DAILY 10/02/17 10/24/17 10/06/17 History Timolol 0.5% 1 drop OU DAILY 10/02/17 10/24/17 10/06/17 History amLODIPine [Norvasc] 10 mg PO DAILY 10/02/17 10/24/17 10/06/17 History guaiFENesin/DEXTROMETHORPHAN 10 ml PO PRN PRN 10/02/17 10/24/17 10/06/17 History [Diabetic Tussin Dm Max-Str Liq] Gabapentin [Neurontin] 100 mg PO Q8HR #90 capsule 10/10/17 10/24/17 Unknown Rx traMADol [Ultram 50 MG tab] 50 mg PO QID PRN #20 tablet 10/10/17 10/24/17 Unknown Rx Active Meds: Active Medications Acetaminophen (Tylenol) 650 mg PO Q4H PRN PRN Reason: Pain MILD(1-3)/Fever >100.5/BYA Last Admin: 10/24/17 14:22 Dose: 650 mg Albuterol (Proventil) 2.5 mg IH Q4HRT PRN PRN Reason: Shortness Of Breath Amlodipine Besylate (Norvasc) 10 mg PO DAILY [facility] Last Admin: 10/24/17 09:36 Dose: 10 mg Ascorbic Acid (Vitamin C) 500 mg PO DAILY [facility] Last Admin: 10/24/17 09:35 Dose: 500 mg Carbidopa/Levodopa (Sinemet) 1 each PO QID [facility] Last Admin: 10/24/17 23:10 Dose: 1 each Cholecalciferol (Vitamin D3) 1,000 unit PO DAILY [facility] Last Admin: 10/24/17 09:35 Dose: 1,000 unit Clopidogrel Bisulfate (Plavix) 75 mg PO DAILY [facility] Last Admin: 10/24/17 09:35 Dose: 75 mg Donepezil HCl (Aricept) 5 mg PO QHS [facility] Last Admin: 10/24/17 23:08 Dose: 5 mg Gabapentin (Neurontin) 100 mg PO Q8HR [facility] Last Admin: 10/24/17 13:30 Dose: 100 mg Guaifenesin (Guaifenesin Dm Syrup) 10 ml PO Q6H PRN PRN Reason: Cough Ceftriaxone Sodium 2 gm/ (Sodium Chloride) 20 mls @ 20 mls/10 min IV Q24HR [facility] Last Admin: 10/24/17 10:22 Dose: 20 mls/10 min Vancomycin HCl (Vancomycin/Ns 1 Gm/250 Ml) 1 gm in 250 mls @ 166.667 mls/hr IV Q12H [facility] Last Admin: 10/24/17 13:28 Dose: 166.667 mls/hr Insulin Aspart (Novolog) 0 units SUB-Q ACHS [facility] PRN Reason: Protocol Last Admin: 10/25/17 08:13 Dose: 1 units Metoclopramide HCl (Reglan) 10 mg PO TID [facility] Last Admin: 10/25/17 07:49 Dose: 10 mg Ondansetron HCl (Zofran) 4 mg IV Q8H PRN PRN Reason: N/V unrelieved by Reglan Pentoxifylline (Trental) 400 mg PO BID [facility] Last Admin: 10/24/17 23:12 Dose: 400 mg Pravastatin Sodium (Pravachol) 40 mg PO QHS [facility] Last Admin: 10/24/17 23:10 Dose: 40 mg Senna (Senokot) 8.6 mg PO DAILY [facility] Last Admin: 10/24/17 09:35 Dose: 8.6 mg Timolol Maleate (Timoptic) 1 drops OU QDAY [facility] Last Admin: 10/24/17 09:37 Dose: 1 drops Tramadol HCl (Ultram) 50 mg PO QID PRN PRN Reason: Pain Last Admin: 10/24/17 20:51 Dose: 50 mg Vancomycin HCl (Vancomycin Pharmacy To Dose) 1 each IV PKCONSULT [facility] PRN Reason: Protocol Zolpidem Tartrate (Ambien) 10 mg PO HS [facility] Last Admin: 10/24/17 23:09 Dose: 10 mg Review of Systems - Review of Systems All systems: negative Constitutional: weakness Gastrointestinal: other (dysphagia) Exam - Constitutional Vital Signs: Temp Pulse Resp BP Pulse Ox 98.8 F 68 20 177/69 100 10/25/17 08:21 10/25/17 08:21 10/25/17 08:21 10/25/17 08:21 10/25/17 08:21 General appearance: no acute distress, other (thin appearing) - Respiratory Respiratory: bilateral: CTA - Cardiovascular Heart Sounds: Present: S1 & S2 - Gastrointestinal General gastrointestinal: Present: soft, non-tender, non-distended, normal bowel sounds, other (PEG tube intact and patent) - Labs CBC & Chem 7: 10/25/17 04:10 10/25/17 04:10 Lab Results: Laboratory Results - last 24 hr 10/24/17 10/24/17 10/24/17 04:07 11:07 16:25 WBC RBC Hgb Hct MCV MCH MCHC RDW Plt Count Sodium Potassium Chloride Carbon Dioxide Anion Gap BUN Creatinine Estimated GFR BUN/Creatinine Ratio Glucose POC Glucose 254 H 217 H Hemoglobin A1c 7.0 H Calcium 10/24/17 10/25/17 10/25/17 22:13 04:10 04:10 WBC 11.2 H RBC 3.70 Hgb 10.6 L Hct 31.4 L MCV 85 MCH 29 MCHC 34 RDW 14.1 Plt Count 284 Sodium 136 L Potassium 3.7 Chloride 99.7 Carbon Dioxide 22 Anion Gap 18 BUN 11 Creatinine 0.5 L Estimated GFR > 60 BUN/Creatinine Ratio 22 Glucose 138 H POC Glucose 379 H Hemoglobin A1c Calcium 8.4 10/25/17 07:25 WBC RBC Hgb Hct MCV MCH MCHC RDW Plt Count Sodium Potassium Chloride Carbon Dioxide Anion Gap BUN Creatinine Estimated GFR BUN/Creatinine Ratio Glucose POC Glucose 188 H Hemoglobin A1c Calcium Assessment and Plan 1.dysphagia -etiology- oropharyngeal dysphagia due to Parkinson's (confirmed by recent modified barium swallow on 10/09/17) -repeat swallow evaluation pending -would follow speech path recommendations and intiate G-tube feedings -will sign off <SIGRID ELAM - Last Filed: 10/26/17 10:38> Medications and Allergies Active Meds: Active Medications Acetaminophen (Tylenol) 650 mg PO Q4H PRN PRN Reason: Pain MILD(1-3)/Fever >100.5/BAY Last Admin: 10/24/17 14:22 Dose: 650 mg Albuterol (Proventil) 2.5 mg IH Q4HRT PRN PRN Reason: Shortness Of Breath Amlodipine Besylate (Norvasc) 10 mg PO DAILY [facility] Last Admin: 10/25/17 09:47 Dose: 10 mg Lipase/Protease/Amylase (Pancreaze Dr 10,500 Unit) 1 each FEEDTUBE PRN PRN PRN Reason: For Clogged Feeding Tube Ascorbic Acid (Vitamin C) 500 mg PO DAILY [facility] Last Admin: 10/26/17 09:14 Dose: 500 mg Carbidopa/Levodopa (Sinemet) 1 each PO QID [facility] Last Admin: 10/26/17 09:14 Dose: 1 each Cholecalciferol (Vitamin D3) 1,000 unit PO DAILY [facility] Last Admin: 10/26/17 09:14 Dose: 1,000 unit Clopidogrel Bisulfate (Plavix) 75 mg PO DAILY [facility] Last Admin: 10/26/17 09:14 Dose: 75 mg Donepezil HCl (Aricept) 5 mg PO QHS [facility] Last Admin: 10/25/17 22:40 Dose: 5 mg Gabapentin (Neurontin) 100 mg PO Q8HR [facility] Last Admin: 10/26/17 06:07 Dose: 100 mg Guaifenesin (Guaifenesin Dm Syrup) 10 ml PO Q6H PRN PRN Reason: Cough Ceftriaxone Sodium 2 gm/ (Sodium Chloride) 20 mls @ 20 mls/10 min IV Q24HR [facility] Last Admin: 10/25/17 10:00 Dose: 20 mls/10 min Insulin Aspart (Novolog) 0 units SUB-Q ACHS [facility] PRN Reason: Protocol Last Admin: 10/26/17 09:12 Dose: 3 units Metoclopramide HCl (Reglan) 10 mg PO TID [facility] Last Admin: 10/26/17 09:14 Dose: 10 mg Ondansetron HCl (Zofran) 4 mg IV Q8H PRN PRN Reason: N/V unrelieved by Reglan Pentoxifylline (Trental) 400 mg PO BID [facility] Last Admin: 10/26/17 09:20 Dose: 400 mg Pravastatin Sodium (Pravachol) 40 mg PO QHS [facility] Last Admin: 10/25/17 22:40 Dose: 40 mg Senna (Senokot) 8.6 mg PO DAILY [facility] Last Admin: 10/26/17 09:14 Dose: 8.6 mg Simple Syrup (Simple Syrup) 15 ml FEEDTUBE PRN PRN PRN Reason: Hypoglycemia Simple Syrup (Simple Syrup) 30 ml FEEDTUBE PRN PRN PRN Reason: Hypoglycemia Sodium Bicarbonate (Sodium Bicarbonate) 325 mg FEEDTUBE PRN PRN PRN Reason: For Clogged Feeding Tube Timolol Maleate (Timoptic) 1 drops OU QDAY [facility] Last Admin: 10/26/17 09:13 Dose: 1 drops Tramadol HCl (Ultram) 50 mg PO QID PRN PRN Reason: Pain Last Admin: 10/25/17 12:28 Dose: 50 mg Zolpidem Tartrate (Ambien) 10 mg PO [facility] Last Admin: 10/25/17 22:40 Dose: 10 mg Exam - Constitutional Vital Signs: Temp Pulse Resp BP Pulse Ox 98.7 F 88 20 103/57 97 10/26/17 07:13 10/26/17 07:13 10/26/17 07:13 10/26/17 07:13 10/26/17 07:13 - Labs CBC & Chem 7: 10/26/17 04:03 10/26/17 04:03 Lab Results: Laboratory Results - last 24 hr 10/25/17 10/25/17 10/25/17 11:27 16:38 22:05 WBC RBC Hgb Hct MCV MCH MCHC RDW Plt Count Lymph % (Auto) [place] % (Auto) Eos % (Auto) Baso % (Auto) Lymph # [place] # Eos # Baso # Seg Neutrophils % Seg Neutrophils # Sodium Potassium Chloride Carbon Dioxide Anion Gap BUN Creatinine Estimated GFR BUN/Creatinine Ratio Glucose POC Glucose 193 H 153 H 225 H Calcium 10/26/17 10/26/17 10/26/17 04:03 04:03 07:20 WBC 10.2 RBC 3.78 Hgb 11.0 L Hct 32.4 L MCV 86 MCH 29 MCHC 34 RDW 13.7 Plt Count 284 Lymph % (Auto) 10.6 L [place] % (Auto) 9.2 H Eos % (Auto) 0.9 Baso % (Auto) 0.2 Lymph # 1.1 L [place] # 0.9 H Eos # 0.1 Baso # 0.0 Seg Neutrophils % 79.1 H Seg Neutrophils # 8.1 H Sodium 131 L Potassium 3.3 L Chloride 95.2 L Carbon Dioxide 25 Anion Gap 14 BUN 10 Creatinine 0.5 L Estimated GFR > 60 BUN/Creatinine Ratio 20 Glucose 209 H POC Glucose 282 H Calcium 8.4 Assessment and Plan Patient seen and examined. Agree with note by Pat Ryan. Will sign off, please call as needed or with questions.
[2017-10-25] MEDS: PLAVIX PO SCH (09:47)
[2017-10-25] MEDS: NORVASC PO SCH (09:47)
[2017-10-25] MEDS: SINEMET PO SCH ×4 (09:48→23:12)
[2017-10-25] MEDS: TRENTAL PO SCH ×2 (09:48→22:40)
[2017-10-25] MEDS: VITAMIN D3 PO SCH (09:48)
[2017-10-25] MEDS: SENOKOT PO SCH (09:48)
[2017-10-25] MEDS: TIMOPTIC OU SCH (09:49)
[2017-10-25] MEDS: VITAMIN C PO SCH (09:49)
[2017-10-25] MEDS: cefTRIAXone 2 GM in NACL 0.9% 20 ML IV SCH (10:00)
--- NOTE | 2017-10-25 10:52 | Query- Nutrition ---
Dear Date:__10/25/2017 Coin Machine Supervisor/CDS:___[place] Phone#:__[phone] Exercise your independent professional judgment when responding to query. Questions asked do not imply a particular answer is desired or expected. We greatly appreciate your clarification on this issue. Clinical Documentation States: 77 Year old male was admitted on 10/23/2017 complaining of generalized weakness and poor by mouth intake. The Hospitalist (Dr. Yoon) progress note on 10/25/2017 states "Dysphagia. He had history of dysphagia and has PEG tube which he uses only for medications." The ED note states "Caretakers have noted a decline in health over the past few weeks with very poor by mouth intake and inability to walk now. Patient eats pur ed food as well as supplementation via PEG tube feeds." Clinical Findings Show: BMI: 18 Please select the most appropriate option 3 [] Mild Malnutrition [x] Mild - Moderate Malnutrition [] Moderate - Severe Malnutrition [] Severe Malnutrition Serum Albumin 2.8 to 3.4 g/dl or Pre-albumin 5 to 17 mg/dl1,2 Inadequate nutritional intake1,2,3,4 NPO > 5 days Weight loss: 5% in 1 month or 7.5% in 3 months or 10% in 6 months1, 3,4 BMI 16 to 18.4 or Weight <90% of ideal body weight1,2,3,4 Serum Albumin < 2.8 g/ dl1,2 Lymphocytes < 1500/ L2 Inadequate nutritional intake3, high stress e.g. major trauma, sepsis,pancreatitis, baxter etc. Decubitus ulcers1,2, , skin breakdown2, easy hair pluckability2 Weight <80% standard for height2 Triceps skin fold <3 mm2 Mid-arm muscle circumference <15 cm2 Creatinine-height index <60% standard2 [ ] Cachexia [ ] Emaciated w/Malnutrition [ ] Other: [ ] Unable to determine [ ] Comment/Explanation: Present on Admission: [ x] Yes (Y) [ ] Clinically undeterminable (W) [ ] No (N) Please also document response in your Progress Notes and/or Discharge Summary and indicate if the condition was present on admission. MTDD
[2017-10-25] MEDS ORDERED: PANCREAZE DR 10,500 UNIT FEEDTUBE PRN (11:47)
[2017-10-25] MEDS ORDERED: SIMPLE SYRUP FEEDTUBE PRN ×2 (11:47)
[2017-10-25] MEDS ORDERED: SODIUM BICARBONATE FEEDTUBE PRN (11:47)
[2017-10-25] MEDS: ULTRAM PO PRN (12:28)
[2017-10-25] MEDS: NEURONTIN PO SCH ×2 (13:24→22:40)
[2017-10-25] MEDS: VANCOMYCIN/NS 1 GM/250 ML 1 GM/250 ML BAG IV SCH ×2 (13:24→13:25)
[2017-10-25] MEDS: PRAVACHOL PO SCH (22:40)
[2017-10-25] MEDS: ARICEPT PO SCH (22:40)
[2017-10-25] MEDS: AMBIEN PO SCH (22:40)
[2017-10-26] MEDS: VANCOMYCIN/NS 1 GM/250 ML 1 GM/250 ML BAG IV SCH (01:16)
[2017-10-26 04:47] LABS: Basophils % (Auto) 0.2 % (0.0-1.8); Eosinophils % (Auto) 0.9 % (0.0-4.3); Hematocrit 32.4 % (35.5-45.6); Mean Corpuscular HGB Conc 34 % (32-34); Mean Corpuscular Hemoglobin 29 pg (28-32); Mean Corpuscular Volume 86 fl (84-94); Platelet Count 284 K/mm3 (140-440); Red Blood Count 3.78 M/mm3 (3.65-5.03); Red Cell Distribution Width 13.7 % (13.2-15.2); White Blood Count 10.2 K/mm3 (4.5-11.0)
[2017-10-26 05:04] LABS: Anion Gap 14 mmol/L; BUN/Creatinine Ratio 20; Blood Urea Nitrogen 10 mg/dL (9-20); Calcium 8.4 mg/dL (8.4-10.2); Carbon Dioxide 25 mmol/L (22-30); Chloride 95.2 mmol/L (98-107); Glucose 209 mg/dL (75-100); Potassium 3.3 mmol/L (3.6-5.0); Sodium 131 mmol/L (137-145)
[2017-10-26] MEDS: NEURONTIN PO SCH ×3 (06:07→22:19)
[2017-10-26] MEDS ORDERED: KCL 10MEQ/100ML 10 MEQ/100 ML BAG IV ONE (08:06)
[2017-10-26] MEDS: NOVOLOG SUB-Q SCH ×5 (09:12→22:24)
[2017-10-26] MEDS: TIMOPTIC OU SCH (09:13)
[2017-10-26] MEDS: VITAMIN C PO SCH (09:14)
[2017-10-26] MEDS: PLAVIX PO SCH (09:14)
[2017-10-26] MEDS: REGLAN PO SCH ×3 (09:14→20:35)
[2017-10-26] MEDS: SINEMET PO SCH ×4 (09:14→22:19)
[2017-10-26] MEDS: VITAMIN D3 PO SCH (09:14)
[2017-10-26] MEDS: SENOKOT PO SCH (09:14)
[2017-10-26] MEDS: TRENTAL PO SCH ×2 (09:20→22:21)
--- NOTE | 2017-10-26 10:05 | Progress Note ---
Assessment and Plan Assessment and plan: Urinary tract infection, catheter associated. He is on Ceftriaxone, we will d/c Vancomycin. Cx essentially negative Sepsis. Etiology secondary to UTI. Continue Ceftriaxone. Follow-up blood cultures Dysphagia. He had history of dysphagia and has PEG tube which he uses only for medications. Etiology- oropharyngeal dysphagia due to Parkinson's (confirmed by recent modified barium swallow on 10/09/17) -repeat swallow evaluation pending Diabetes mellitus Type 2. Continue sliding-scale insulin and Accu-Cheks CAD s/p stent, CABG. Stable History of stroke Hypertension Deconditioning. PT eval Full code status History Interval history: no new issues overnight. Hospitalist Physical - Constitutional Vitals: Temp Pulse Resp BP Pulse Ox 98.7 F 88 20 103/57 97 10/26/17 07:13 10/26/17 07:13 10/26/17 07:13 10/26/17 07:13 10/26/17 07:13 General appearance: Present: cachectic - EENT Eyes: Present: PERRL, EOM intact ENT: hearing intact, clear oral mucosa, dentition normal - Neck Neck: Present: supple, normal ROM - Respiratory Respiratory effort: normal Respiratory: bilateral: CTA - Cardiovascular Rhythm: regular Heart Sounds: Present: S1 & S2. Absent: gallop, rub - Extremities Extremities: no ischemia, No edema, Full ROM - Abdominal General gastrointestinal: soft, non-tender, non-distended, normal bowel sounds - Integumentary Integumentary: Present: clear, warm, dry - Neurologic Neurologic: CNII-XII intact, moves all extremities Results - Labs CBC & Chem 7: 10/26/17 04:03 10/26/17 04:03 Labs: Laboratory Last Values WBC 10.2 K/mm3 (4.5-11.0) 10/26/17 04:03 RBC 3.78 M/mm3 (3.65-5.03) 10/26/17 04:03 Hgb 11.0 gm/dl (11.8-15.2) L 10/26/17 04:03 Hct 32.4 % (35.5-45.6) L 10/26/17 04:03 MCV 86 fl (84-94) 10/26/17 04:03 MCH 29 pg (28-32) 10/26/17 04:03 MCHC 34 % (32-34) 10/26/17 04:03 RDW 13.7 % (13.2-15.2) 10/26/17 04:03 Plt Count 284 K/mm3 (140-440) 10/26/17 04:03 Lymph % (Auto) 10.6 % (13.4-35.0) L 10/26/17 04:03 [place] % (Auto) 9.2 % (0.0-7.3) H 10/26/17 04:03 Eos % (Auto) 0.9 % (0.0-4.3) 10/26/17 04:03 Baso % (Auto) 0.2 % (0.0-1.8) 10/26/17 04:03 Lymph # 1.1 K/mm3 (1.2-5.4) L 10/26/17 04:03 [place] # 0.9 K/mm3 (0.0-0.8) H 10/26/17 04:03 Eos # 0.1 K/mm3 (0.0-0.4) 10/26/17 04:03 Baso # 0.0 K/mm3 (0.0-0.1) 10/26/17 04:03 Seg Neutrophils % 79.1 % (40.0-70.0) H 10/26/17 04:03 Seg Neutrophils # 8.1 K/mm3 (1.8-7.7) H 10/26/17 04:03 Sodium 131 mmol/L (137-145) L 10/26/17 04:03 Potassium 3.3 mmol/L (3.6-5.0) L 10/26/17 04:03 Chloride 95.2 mmol/L (98-107) L 10/26/17 04:03 Carbon Dioxide 25 mmol/L (22-30) 10/26/17 04:03 Anion Gap 14 mmol/L 10/26/17 04:03 BUN 10 mg/dL (9-20) 10/26/17 04:03 Creatinine 0.5 mg/dL (0.8-1.5) L 10/26/17 04:03 Estimated GFR > 60 ml/min 10/26/17 04:03 BUN/Creatinine Ratio 20 % 10/26/17 04:03 Glucose 209 mg/dL (75-100) H 10/26/17 04:03 POC Glucose 282 (70-105) H 10/26/17 07:20 Hemoglobin A1c 7.0 % (4-6) H 10/24/17 04:07 Lactic Acid 0.90 mmol/L (0.7-2.0) 10/24/17 04:07 Calcium 8.4 mg/dL (8.4-10.2) 10/26/17 04:03 Total Bilirubin 0.70 mg/dL (0.1-1.2) 10/23/17 17:01 AST 74 units/L (5-40) H 10/23/17 17:01 ALT 49 units/L (7-56) 10/23/17 17:01 Alkaline Phosphatase 150 units/L (35-129) H 10/23/17 17:01 Troponin T 0.024 ng/mL (0.00-0.029) 10/23/17 17:01 Total Protein 8.1 g/dL (6.3-8.2) 10/23/17 17:01 Albumin 3.2 g/dL (3.9-5) L 10/23/17 17:01 Albumin/Globulin Ratio 0.7 % 10/23/17 17:01 Urine Color Yellow (Yellow) 10/23/17 21:44 Urine Turbidity Clear (Clear) 10/23/17 21:44 Urine pH 5.0 (5.0-7.0) 10/23/17 21:44 Ur Specific [place] 1.020 (1.003-1.030) 10/23/17 21:44 Urine Protein 100 mg/dl mg/dL (Negative) 10/23/17 21:44 Urine Glucose (UA) Neg mg/dL (Negative) 10/23/17 21:44 Urine Ketones Tr mg/dL (Negative) 10/23/17 21:44 Urine Blood Sm (Negative) 10/23/17 21:44 Urine Nitrite Neg (Negative) 10/23/17 21:44 Urine Bilirubin Neg (Negative) 10/23/17 21:44 Urine Urobilinogen 2.0 mg/dL (<2.0) 10/23/17 21:44 Ur Leukocyte Esterase Mod (Negative) 10/23/17 21:44 Urine WBC (Auto) > 182.0 /HPF (0.0-6.0) H 10/23/17 21:44 Urine RBC (Auto) 138.0 /HPF (0.0-6.0) 10/23/17 21:44 Urine Bacteria (Auto) 4+ /HPF (Negative) 10/23/17 21:44 Urine WBC Clumps 3+ /HPF 10/23/17 21:44 Urine Mucus 3+ /HPF 10/23/17 21:44
[2017-10-26] MEDS: NORVASC PO SCH (10:55)
[2017-10-26] MEDS: cefTRIAXone 2 GM in NACL 0.9% 20 ML IV SCH (10:55)
[2017-10-26] MEDS: AMBIEN PO SCH (22:19)
[2017-10-26] MEDS: ARICEPT PO SCH (22:20)
[2017-10-26] MEDS: PRAVACHOL PO SCH (22:21)
[2017-10-27 05:08] LABS: Basophils % (Auto) 0.3 % (0.0-1.8); Eosinophils % (Auto) 0.9 % (0.0-4.3); Hematocrit 31.7 % (35.5-45.6); Hemoglobin 10.9 gm/dl (11.8-15.2); Mean Corpuscular HGB Conc 34 % (32-34); Mean Corpuscular Hemoglobin 29 pg (28-32); Mean Corpuscular Volume 85 fl (84-94); Platelet Count 291 K/mm3 (140-440); Red Blood Count 3.72 M/mm3 (3.65-5.03); Red Cell Distribution Width 13.8 % (13.2-15.2); White Blood Count 11.6 K/mm3 (4.5-11.0)
[2017-10-27 05:23] LABS: Anion Gap 16 mmol/L; BUN/Creatinine Ratio 22; Blood Urea Nitrogen 11 mg/dL (9-20); Calcium 8.2 mg/dL (8.4-10.2); Carbon Dioxide 23 mmol/L (22-30); Glucose 275 mg/dL (75-100); Potassium 3.7 mmol/L (3.6-5.0); Sodium 134 mmol/L (137-145)
[2017-10-27] MEDS: NEURONTIN PO SCH (06:23)
[2017-10-27] MEDS: NOVOLOG SUB-Q SCH ×2 (08:33→12:26)
[2017-10-27] MEDS: TIMOPTIC OU SCH ×2 (08:34→11:00)
[2017-10-27] MEDS: TRENTAL PO SCH ×2 (08:34→11:03)
[2017-10-27] MEDS: REGLAN PO SCH (08:35)
[2017-10-27] MEDS: PLAVIX PO SCH ×2 (08:35→10:59)
[2017-10-27] MEDS: VITAMIN D3 PO SCH ×2 (08:35→11:03)
[2017-10-27] MEDS: VITAMIN C PO SCH ×2 (08:35→11:03)
[2017-10-27] MEDS: SENOKOT PO SCH ×2 (08:36→10:59)
[2017-10-27] MEDS: NORVASC PO SCH (10:59)
--- NOTE | 2017-10-27 12:08 | Discharge Summary ---
Providers - Providers Date of Admission: 10/23/17 22:32 Date of discharge: 10/27/17 Attending physician: BOWEN HARTLEY 10/24/17 13:43 Consult to Physician [CONS] Routine Consulting Provider: SIGRID ELAM Reason For Exam: Dysphagia Place consult to:: SIGRID RAMIREZ Notified:: SIGRID RAMIREZ Phone number called:: [phone] Was contact made?: Yes If yes, spoke with:: BRAIN Time called:: 16:20 Comment:: KETTY 10/24/17 13:45 Consult to Dietitian/Nutrition [CONS] Routine Physician Instructions: Reason For Exam: Reason for Consult: Write/Manage Tube Feeding 10/25/17 09:26 Physical Therapy Evaluation and Treat [CONS] Routine Comment: Reason For Exam: deconditioning 10/25/17 18:15 Consult to Dietitian/Nutrition [CONS] Stat Physician Instructions: Reason For Exam: Consider continuation of bolus feedings. Reason for Consult: Write/Manage Tube Feeding Primary care physician: [employer] Hospitalization Condition: Fair Hospital course: Patient is 77 yo with hypertension, diabetes, CAD, with indwelling ramos catheter. He presented with generalized weakness. Labs show UTI from indwelling catheter, leukocytosis. He was diagnosed with sepsis, started on Rocephin and vancomycin and admitted. He improved over next few days, weakness improved. He was then discharged to SNF on 10/27/17 Disposition: [id number] SNF W [facility] CERT - Discharge Diagnoses (1) Catheter-associated urinary tract infection Status: Acute (2) Dysphagia Status: Chronic (3) Gastrostomy present Status: Acute (4) Hx of CABG Status: Chronic (5) Hyponatremia Status: Acute (6) Parkinsons disease Status: Chronic (7) Sepsis Status: Acute (8) UTI (urinary tract infection) Status: Acute (9) CAD (coronary artery disease) Status: Acute Core Measure Documentation - Palliative Care Palliative Care/ Comfort Measures: Not Applicable - Core Measures Any of the following diagnoses?: none Exam - Physical Exam Narrative exam: GEN APPEARANCE : Not in acute distress,malnourished HEENT: Normocephalic Atraumatic NECK : supple, no JVD LUNGS: clear to auscultation bilaterally, no rales, no wheeze HEART: S1 and S2 regular, tachycardia, no murmurs, rubs or gallop, ABD: Soft, no tenderness, no distension, normal bowel sounds, PEG tube EXT: No edema, no clubbing, no cyanosis NEURO: Awake,alert,oriented x 3, no facial asymmetry,no focal signs, - Constitutional Vitals: Temp Pulse Resp BP Pulse Ox 98.4 F 89 18 116/58 98 10/27/17 07:34 10/27/17 07:34 10/27/17 07:34 10/27/17 10:59 10/27/17 07:34 Plan Activity: advance as tolerated Diet: other (Tube feeding) Additional Instructions: 1.Follow up with Physician at [facility] in 3-5 days. 2.Follow up with Dr. Richey, Urology as scheduled Follow up with: PRIMARY CARE,MD [Primary Care Provider] - 3-5 Days Prescriptions: guaiFENesin DM [Guaifenesin Dm Syrup] 10 ml PO Q6H PRN #1 bottle PRN Reason: Cough Levofloxacin [Levaquin TAB] 500 mg FEEDTUBE QDAY 5 Days tablet traMADol [Ultram 50 MG tab] 50 mg PO QID PRN #20 tablet PRN Reason: Pain Zolpidem [Ambien] 10 mg PO HS #10 tablet
[2017-10-27] MEDS: SINEMET PO SCH (12:25)
[2017-10-27] MEDS: cefTRIAXone 2 GM in NACL 0.9% 20 ML IV SCH (12:25)
[2017-10-27 14:15] VITALS: BP 107/58
[2017-11-07 16:16] LABS: ISTAT Base Excess -8; ISTAT HCO3 17.1; ISTAT PCO2 29.6 (35-45); ISTAT PH 7.369 (7.35-7.45); ISTAT PO2 87 (80-105); ISTAT SO2 96; ISTAT TCO2 18
[2017-11-08 00:08] LABS: ISTAT Base Excess -2; ISTAT HCO3 20.6; ISTAT PCO2 25.6 (35-45); ISTAT PH 7.512 (7.35-7.45); ISTAT PO2 86 (80-105); ISTAT SO2 98; ISTAT TCO2 21
== END 2017-10-27 16:05 | DRG 698 ==
LOC: ED 16:00 → 2B-ACE 22:32
PROVIDERS: ADMIT Internal Medicine; ATTEND Internal Medicine
DX: T83.511A Infection and inflammatory reaction due to indwelling urethral catheter, initial encounter (principal); A41.9 Sepsis, unspecified organism; E87.1 Hypo-osmolality and hyponatremia; E44.0 Moderate protein-calorie malnutrition; G20 Parkinson's disease; I25.2 Old myocardial infarction; Z86.73 Personal history of transient ischemic attack (TIA), and cerebral infarction without residual deficits; E11.9 Type 2 diabetes mellitus without complications; I25.10 Atherosclerotic heart disease of native coronary artery without angina pectoris; Z95.1 Presence of aortocoronary bypass graft; Z93.1 Gastrostomy status; R13.10 Dysphagia, unspecified
CPT/HCPCS: 36415; 71010; 80048; 80053; 81001; 82140; 82803; 82962; 83036; 84484; 85025; 85027; 87040; 87086; 93005; 93010; 96361; 96365; 96375; A9270-GY; G8978-GP; G8979-GP; J0696; J1815; J3370; J3480; J7030; J7050

== ENCOUNTER 2017-11-07 14:50 | Inpatient (IN) | payer MEDICARE ==
[2017-11-07] MEDS ORDERED: TYLENOL PO STA (15:01)
[2017-11-07] MEDS ORDERED: NACL 0.9% 500 ML 500 ML IV ONE (15:01)
[2017-11-07] MEDS ORDERED: TYLENOL PR ONE ×2 (15:11→15:22)
[2017-11-07 16:06] LABS: Hematocrit 33.6 % (35.5-45.6); Hemoglobin 11.3 gm/dl (11.8-15.2); Mean Corpuscular HGB Conc 34 % (32-34); Mean Corpuscular Hemoglobin 29 pg (28-32); Mean Corpuscular Volume 86 fl (84-94); Platelet Count 190 K/mm3 (140-440); Red Blood Count 3.93 M/mm3 (3.65-5.03); Red Cell Distribution Width 13.8 % (13.2-15.2)
[2017-11-07 16:16] LABS: INR 1.35 (0.87-1.13)
[2017-11-07 16:29] LABS: Bacteria,Urine 2+ /HPF (Negative); Bilirubin,Urine NEG (Negative); Blood,Urine SM (Negative); Color,Urine Yellow (Yellow); Nitrite,Urine NEG (Negative); Urobilinogen,Urine < 2.0 mg/dL (<2.0)
[2017-11-07 16:31] LABS: RBC,Urine > 182.0 /HPF (0.0-6.0); WBC,Urine > 182.0 /HPF (0.0-6.0)
[2017-11-07] MEDS ORDERED: LEVAQUIN 750MG/150ML 750 MG/150 ML BAG IV ONE (16:34)
[2017-11-07 16:48] LABS: Anisocytosis 1+; Band Neutrophils # (Manual) 0.1 K/mm3; Basophils % (Manual) 0 % (0.0-1.8); Eosinophils % (Manual) 0 % (0.0-4.3); Myelocytes # (Manual) 0.1 K/mm3; Total Cells Counted 100
[2017-11-07 17:41] LABS: Albumin 2.4 g/dL (3.9-5); Calcium 8.4 mg/dL (8.4-10.2)
[2017-11-07] MEDS ORDERED: NACL 0.9% 1000 ML 1,000 ML ONE (17:55)
[2017-11-07 18:22] LABS: Hemolysis Index 8
[2017-11-07 18:31] LABS: BUN/Creatinine Ratio TNR; Blood Urea Nitrogen TNR mg/dL (9-20); Calcium TNR mg/dL (8.4-10.2)
[2017-11-07] MEDS ORDERED: KIONEX PO ONE (18:31)
[2017-11-07] MEDS ORDERED: PROVENTIL IH ONE (18:31)
[2017-11-07 18:48] LABS: Chol/HDL Ratio 3.73 %; HDL Cholesterol 15 mg/dL (40-59); LDL Cholesterol,Direct 32 mg/dL (50-130)
[2017-11-07] MEDS ORDERED: SODIUM BICARBONATE IV ONE (18:49)
[2017-11-07 19:39] LABS: BUN/Creatinine Ratio TNR; Blood Urea Nitrogen TNR mg/dL (9-20); Calcium TNR mg/dL (8.4-10.2); Hemolysis Index TNR
[2017-11-07] MEDS ORDERED: CALCIUM GLUCONATE 1,000 MG in NACL 0.9% 100 ML IV ONE (20:00)
[2017-11-07] MEDS: SODIUM BICARBONATE IV ONE ×2 (20:07→21:06)
--- NOTE | 2017-11-07 20:21 | Emergency Department Report ---
HPI - General Chief Complaint: Dyspnea/Respdistress Time Seen by Provider: 11/07/17 15:39 - HPI HPI: This is a 77-year-old Afro[place] male presents to the emergency department by EMS from [facility] with a complaint of elevated blood sugar and low pulse ox. He was found to have a blood sugar of about 525 at the retirement but EMS found him to have a blood sugar of about 400. Unsure what medications were given by [facility]. Initially he had a pulse ox of 60% and was placed on oxygen via nasal cannula and it increased to the low 90s. The patient himself is a poor historian. He has a past medical history of hypertension, diabetes, hyperlipidemia, Parkinson's disease, coronary artery disease. ED Past Medical Hx - Past Medical History Previous Medical History?: Yes Hx Hypertension: Yes (X 35 YRS) Hx CVA: Yes Hx Heart Attack/AMI: Yes (1993 , 2002) Hx Diabetes: Yes Hx HIV: No Additional medical history: Left hip, Back surgery, Right eye cataract, Recent left eye cataract surgery, parkinsons - Surgical History Past Surgical History?: Yes Hx Coronary Stent: No Hx Open Heart Surgery: Yes (CABG 2000, X2) Additional Surgical History: Left cataract surgery 11-17-2014 - Social History Smoking Status: Never Smoker - Medications Home Medications: Home Medications Medication Instructions Recorded Confirmed Last Taken Type Carbidopa/Levodopa 25-100 [Sinemet 1 tab PO QID 12/21/14 11/07/17 10/06/17 History 25/100] Lovastatin [Altoprev] 40 mg PO QHS 12/21/14 11/07/17 10/06/17 History Ascorbic Acid [Vitamin C] 500 mg PO DAILY 10/02/17 11/07/17 10/06/17 History Cholecalciferol (Vitamin D3) 1,000 unit PO DAILY 10/02/17 11/07/17 10/06/17 History [Vitamin D3] Clopidogrel Bisulfate [Plavix] 75 mg PO DAILY 10/02/17 11/07/17 10/06/17 History Donepezil HCl 5 mg PO QHS 10/02/17 11/07/17 10/06/17 History Metoclopramide [Reglan TAB] 10 mg PO TID 10/02/17 11/07/17 10/06/17 History Pentoxifylline 1 tab PO BID 10/02/17 11/07/17 10/06/17 History Sennosides [Senna Laxative] 8.6 mg PO DAILY 10/02/17 11/07/17 10/06/17 History Timolol 0.5% 1 drop OU DAILY 10/02/17 11/07/17 10/06/17 History amLODIPine [Norvasc] 10 mg PO DAILY 10/02/17 11/07/17 10/06/17 History guaiFENesin/DEXTROMETHORPHAN 10 ml PO Q6H PRN 10/02/17 11/07/17 10/06/17 History [Diabetic Tussin Dm Max-Str Liq] Gabapentin [Neurontin] 100 mg PO Q8HR #90 capsule 10/10/17 11/07/17 Unknown Rx Levofloxacin [Levaquin TAB] 500 mg FEEDTUBE QDAY 5 Days tablet 10/27/17 Unknown Rx Zolpidem [Ambien] 10 mg PO HS #10 tablet 10/27/17 11/07/17 Unknown Rx guaiFENesin DM [Guaifenesin Dm 10 ml PO Q6H PRN #1 bottle 10/27/17 11/07/17 Unknown Rx Syrup] traMADol [Ultram 50 MG tab] 50 mg PO QID PRN #20 tablet 10/27/17 11/07/17 Unknown Rx Insulin Aspart [NovoLOG Flexpen] 0 units SQ AC 11/07/17 11/07/17 Unknown History ED Review of Systems ROS: Stated complaint: HIGH GLUCOSE LEVEL/LOW PULSOX Other details as noted in HPI Comment: Unobtainable due to pts medical conditions Physical Exam - Physical Exam Vital Signs: Vital Signs 11/07/17 11/07/17 11/07/17 14:56 15:07 15:16 Temperature 101.3 F H Pulse Rate 88 89 92 H Pulse Rate [ Anterior Bilateral Bases ] Respiratory 33 H 28 H 26 H Rate Respiratory Rate [Anterior Bilateral Bases ] Blood Pressure 151/54 O2 Sat by Pulse 94 93 93 Oximetry 11/07/17 11/07/17 11/07/17 15:30 15:45 16:00 Temperature Pulse Rate 96 H 100 H 109 H Pulse Rate [ Anterior Bilateral Bases ] Respiratory 35 H 23 25 H Rate Respiratory Rate [Anterior Bilateral Bases ] Blood Pressure 151/54 102/67 102/67 O2 Sat by Pulse 87 88 90 Oximetry 11/07/17 11/07/17 11/07/17 16:16 16:30 16:46 Temperature Pulse Rate 110 H 111 H 111 H Pulse Rate [ Anterior Bilateral Bases ] Respiratory 24 15 31 H Rate Respiratory Rate [Anterior Bilateral Bases ] Blood Pressure 103/64 103/64 103/64 O2 Sat by Pulse 94 89 76 L Oximetry 11/07/17 11/07/17 11/07/17 17:00 17:16 17:25 Temperature 100.8 F H Pulse Rate 109 H 101 H Pulse Rate [ Anterior Bilateral Bases ] Respiratory 26 H 29 H Rate Respiratory Rate [Anterior Bilateral Bases ] Blood Pressure 103/64 130/59 O2 Sat by Pulse 89 88 Oximetry 11/07/17 11/07/17 11/07/17 17:30 17:46 18:00 Temperature Pulse Rate 101 H Pulse Rate [ Anterior Bilateral Bases ] Respiratory 35 H 37 H 34 H Rate Respiratory Rate [Anterior Bilateral Bases ] Blood Pressure 112/37 97/68 132/38 O2 Sat by Pulse 71 L 92 90 Oximetry 11/07/17 11/07/17 11/07/17 18:16 18:30 18:46 Temperature Pulse Rate 99 H Pulse Rate [ Anterior Bilateral Bases ] Respiratory 31 H 23 30 H Rate Respiratory Rate [Anterior Bilateral Bases ] Blood Pressure 100/50 84/47 95/60 O2 Sat by Pulse 88 92 88 Oximetry 11/07/17 11/07/17 11/07/17 19:00 19:16 19:30 Temperature Pulse Rate 105 H 107 H Pulse Rate [ Anterior Bilateral Bases ] Respiratory 29 H 32 H 21 Rate Respiratory Rate [Anterior Bilateral Bases ] Blood Pressure 133/114 95/53 95/53 O2 Sat by Pulse 91 94 Oximetry 11/07/17 11/07/17 19:55 19:57 Temperature Pulse Rate 107 H Pulse Rate [ 100 H Anterior Bilateral Bases ] Respiratory 36 H Rate Respiratory 30 H Rate [Anterior Bilateral Bases ] Blood Pressure 97/59 O2 Sat by Pulse 98 Oximetry Physical Exam: GENERAL: Patient is ill-appearing. HENT: Normocephalic. Atraumatic. Patient has moist mucous membranes. EYES: Extraocular motions are intact. Pupils equal reactive to light bilaterally. NECK: Supple. Trachea is midline. CHEST/LUNGS: There is some rhonchi heard to the right side of the chest. There is some tachypnea but no accessory muscle use. There is no respiratory distress noted. HEART/CARDIOVASCULAR: Regular. There is no tachycardia. There is no murmur. ABDOMEN: Abdomen is soft, nontender. Patient has normal bowel sounds. There is no abdominal distention. SKIN: Skin is warm and dry. NEURO: The patient is awake but confused. He will answer some questions and attempts to follow commands. Withdraws from painful stimuli. MUSCULOSKELETAL: There is no tenderness or deformity. There is no evidence of acute injury. ED Course Vital Signs 11/07/17 11/07/17 11/07/17 14:56 15:07 15:16 Temperature 101.3 F H Pulse Rate 88 89 92 H Pulse Rate [ Anterior Bilateral Bases ] Respiratory 33 H 28 H 26 H Rate Respiratory Rate [Anterior Bilateral Bases ] Blood Pressure 151/54 O2 Sat by Pulse 94 93 93 Oximetry 11/07/17 11/07/17 11/07/17 15:30 15:45 16:00 Temperature Pulse Rate 96 H 100 H 109 H Pulse Rate [ Anterior Bilateral Bases ] Respiratory 35 H 23 25 H Rate Respiratory Rate [Anterior Bilateral Bases ] Blood Pressure 151/54 102/67 102/67 O2 Sat by Pulse 87 88 90 Oximetry 11/07/17 11/07/17 11/07/17 16:16 16:30 16:46 Temperature Pulse Rate 110 H 111 H 111 H Pulse Rate [ Anterior Bilateral Bases ] Respiratory 24 15 31 H Rate Respiratory Rate [Anterior Bilateral Bases ] Blood Pressure 103/64 103/64 103/64 O2 Sat by Pulse 94 89 76 L Oximetry 11/07/17 11/07/17 11/07/17 17:00 17:16 17:25 Temperature 100.8 F H Pulse Rate 109 H 101 H Pulse Rate [ Anterior Bilateral Bases ] Respiratory 26 H 29 H Rate Respiratory Rate [Anterior Bilateral Bases ] Blood Pressure 103/64 130/59 O2 Sat by Pulse 89 88 Oximetry 11/07/17 11/07/17 11/07/17 17:30 17:46 18:00 Temperature Pulse Rate 101 H Pulse Rate [ Anterior Bilateral Bases ] Respiratory 35 H 37 H 34 H Rate Respiratory Rate [Anterior Bilateral Bases ] Blood Pressure 112/37 97/68 132/38 O2 Sat by Pulse 71 L 92 90 Oximetry 11/07/17 11/07/17 11/07/17 18:16 18:30 18:46 Temperature Pulse Rate 99 H Pulse Rate [ Anterior Bilateral Bases ] Respiratory 31 H 23 30 H Rate Respiratory Rate [Anterior Bilateral Bases ] Blood Pressure 100/50 84/47 95/60 O2 Sat by Pulse 88 92 88 Oximetry 11/07/17 11/07/17 11/07/17 19:00 19:16 19:30 Temperature Pulse Rate 105 H 107 H Pulse Rate [ Anterior Bilateral Bases ] Respiratory 29 H 32 H 21 Rate Respiratory Rate [Anterior Bilateral Bases ] Blood Pressure 133/114 95/53 95/53 O2 Sat by Pulse 91 94 Oximetry 11/07/17 11/07/17 19:55 19:57 Temperature Pulse Rate 107 H Pulse Rate [ 100 H Anterior Bilateral Bases ] Respiratory 36 H Rate Respiratory 30 H Rate [Anterior Bilateral Bases ] Blood Pressure 97/59 O2 Sat by Pulse 98 Oximetry - Consultations Consultation #1: I spoke to the outside sales consultant on-call, Dr. Rodríguez, who recommended a James be placed. He recommended the patient given a liter of IV fluid, 1 amp of sodium bicarbonate and then one half normal saline with 1.5 amps of bicarbonate at 150 mL per hour. He will then see the patient tomorrow as a consult. 11/07/17 20:21 ED Medical Decision Making - Lab Data Result diagrams: 11/07/17 15:29 11/07/17 21:05 - EKG Data -: EKG Interpreted by Me EKG shows normal: sinus rhythm, axis, intervals (prolonged MA and QTc intervals) , QRS complexes (LVH, LBBB), ST-T waves Rate: normal - EKG Data When compared to previous EKG there are: previous EKG unavailable Interpretation: other (sinus rhythm, left bundle-branch block, LVH, prolonged MA and QTc intervals) - Radiology Data Radiology results: image reviewed interpreted by me: X-ray shows a large area of right-sided infiltrate to the perihilar and middle lobe regions. - Medical Decision Making This patient originally came in for hypoxia and hyperglycemia. His blood sugar came down more reasonably. He does have elevated anion gap and some acidosis. However he also has a lactic acidosis. He showed some urinary retention and also positive for a UTI. Chest x-ray showed a large right-sided pneumonia. Blood cultures were sent and antibiotics were started. Patient appears septic. He had some hypotension but did not require pressors. Elevated d-dimer and eventually he was found to have acute nonocclusive DVT and a chronic DVT but no pulmonary embolism. Patient admitted to the hospitalist service and accepted by Dr. Gleason. - Differential Diagnosis Sepsis, Pneumonia, UTI, dementia Critical Care Time: Yes Critical care time in (mins) excluding proc time.: 35 Critical care attestation.: If time is entered above; I have spent that time in minutes in the direct care of this critically ill patient, excluding procedure time. Critical care time was spent on this patient during his initial evaluation, multiple re-evaluations , ordering and interpretation of labs and imaging, administration of antibiotics , IV fluid resuscitation, discussion with the hospitalist and disposition planning. Critical Care Time: 35 minutes ED Disposition Clinical Impression: Metabolic acidosis, Parkinsons disease, Hyperkalemia, Lactic acidosis Sepsis Qualifiers: Sepsis type: sepsis due to unspecified organism Qualified Code(s): A41.9 - Sepsis, unspecified organism UTI (urinary tract infection) Qualifiers: Urinary tract infection type: acute cystitis Hematuria presence: with hematuria Qualified Code(s): N30.01 - Acute cystitis with hematuria Acute renal failure Qualifiers: Acute renal failure type: unspecified Qualified Code(s): N17.9 - Acute kidney failure, unspecified Disposition: 09 OP ADMIT IP TO THIS HOSP Is pt being admited?: Yes Condition: Serious
--- NOTE | 2017-11-07 20:28 | XRay Report ---
FINAL REPORT PROCEDURE: Portable chest x-ray TECHNIQUE: Chest radiograph portable AP view. CPT 41805 HISTORY: possible Sepsis COMPARISON: Prior chest x-ray 10/23/2017 FINDINGS: Sternotomy wires are again visualized. The heart is not enlarged. The pulmonary vasculature is not distended. No pleural effusions are identified. There is a new diffuse right perihilar infiltrate extending into the right lower lobe and right upper lobe. Left lung appears clear. IMPRESSION: New diffuse infiltrate right perihilar region extending into the right upper lobe and right lower lobe. No effusions have developed. Prior thoracotomy..
[2017-11-07 20:36] LABS: Bacteria,Urine 2+ /HPF (Negative); Bilirubin,Urine NEG (Negative); Blood,Urine MOD (Negative); Color,Urine Yellow (Yellow); Nitrite,Urine NEG (Negative); Urobilinogen,Urine < 2.0 mg/dL (<2.0)
[2017-11-07 20:37] LABS: WBC,Urine > 182.0 /HPF (0.0-6.0)
[2017-11-07] MEDS ORDERED: NACL 0.45% 1000 ML 1,000 ML with SODIUM BICARBONATE 75 MEQ IV SCH (21:00)
--- NOTE | 2017-11-07 21:28 | History and Physical Report ---
History of Present Illness Date of examination: 11/07/17 Medications and Allergies Allergies Allergy/AdvReac Type Severity Reaction Status Date / Time No Known Allergies Allergy Verified 09/26/17 17:35 Home Medications Medication Instructions Recorded Confirmed Last Taken Type Carbidopa/Levodopa 25-100 [Sinemet 1 tab PO QID 12/21/14 11/07/17 10/06/17 History 25/100] Lovastatin [Altoprev] 40 mg PO QHS 12/21/14 11/07/17 10/06/17 History Ascorbic Acid [Vitamin C] 500 mg PO DAILY 10/02/17 11/07/17 10/06/17 History Cholecalciferol (Vitamin D3) 1,000 unit PO DAILY 10/02/17 11/07/17 10/06/17 History [Vitamin D3] Clopidogrel Bisulfate [Plavix] 75 mg PO DAILY 10/02/17 11/07/17 10/06/17 History Donepezil HCl 5 mg PO QHS 10/02/17 11/07/17 10/06/17 History Metoclopramide [Reglan TAB] 10 mg PO TID 10/02/17 11/07/17 10/06/17 History Pentoxifylline 1 tab PO BID 10/02/17 11/07/17 10/06/17 History Sennosides [Senna Laxative] 8.6 mg PO DAILY 10/02/17 11/07/17 10/06/17 History Timolol 0.5% 1 drop OU DAILY 10/02/17 11/07/17 10/06/17 History amLODIPine [Norvasc] 10 mg PO DAILY 10/02/17 11/07/17 10/06/17 History guaiFENesin/DEXTROMETHORPHAN 10 ml PO Q6H PRN 10/02/17 11/07/17 10/06/17 History [Diabetic Tussin Dm Max-Str Liq] Gabapentin [Neurontin] 100 mg PO Q8HR #90 capsule 10/10/17 11/07/17 Unknown Rx Levofloxacin [Levaquin TAB] 500 mg FEEDTUBE QDAY 5 Days tablet 10/27/17 Unknown Rx Zolpidem [Ambien] 10 mg PO HS #10 tablet 10/27/17 11/07/17 Unknown Rx guaiFENesin DM [Guaifenesin Dm 10 ml PO Q6H PRN #1 bottle 10/27/17 11/07/17 Unknown Rx Syrup] traMADol [Ultram 50 MG tab] 50 mg PO QID PRN #20 tablet 10/27/17 11/07/17 Unknown Rx Insulin Aspart [NovoLOG Flexpen] 0 units SQ AC 11/07/17 11/07/17 Unknown History Results - Labs CBC & Chem 7: 11/07/17 15:29 11/09/17 09:32
[2017-11-07 21:34] LABS: Calcium 8.3 mg/dL (8.4-10.2)
[2017-11-07] MEDS ORDERED: HEPARIN SUB-Q SCH (22:00)
[2017-11-07] MEDS ORDERED: DULCOLAX PR PRN (22:19)
[2017-11-07] MEDS ORDERED: MILK OF MAGNESIA PO PRN (22:22)
[2017-11-07] MEDS ORDERED: MORPHINE IV PRN (22:22)
[2017-11-07] MEDS ORDERED: ZOFRAN IV PRN (22:23)
[2017-11-07] MEDS ORDERED: APRESOLINE IV PRN (23:16)
[2017-11-07] MEDS: ZOSYN/NS 2.25 GM/50ML 2.25 GM/50 ML BAG IV SCH (23:19)
[2017-11-08] MEDS: DUONEB *Not for PRN Use IH SCH ×4 (01:36→21:07)
[2017-11-08] MEDS: ZOSYN/NS 2.25 GM/50ML 2.25 GM/50 ML BAG IV SCH ×3 (06:35→21:31)
[2017-11-08] MEDS: NACL 0.9% 1000 ML 1,000 ML IV SCH ×2 (06:35→21:43)
--- NOTE | 2017-11-08 08:03 | Event Note ---
Date: 11/07/17 See dictated H/P in reports Sepsis Hypotension
--- NOTE | 2017-11-08 08:47 | History and Physical Report ---
CHIEF COMPLAINT: Altered sensorium and respiratory distress for 1 day. HISTORY OF PRESENT ILLNESS: A 77-year-old male with multiple medical problems and resident of [facility], was sent in from high blood sugars after sensorium and low oxygen levels. EMS found him to have a blood sugar of 525 and sats of 60%. He was placed on oxygen and sats increased to 90%. The patient is a poor historian. Altered mental status, multiple cerebrovascular accidents in the past, bedridden. The patient also has a PEG tube. His code status is not known. PAST MEDICAL HISTORY: As mentioned, significant for hypertension, cerebrovascular accident, coronary artery disease, acute ND in 1993 and 2002, insulin-dependent diabetes. PAST SURGICAL HISTORY: Significant for left hip surgery, back surgery, right eye cataract removal, left eye cataract surgery, Parkinson's disease. SOCIAL HISTORY: Does not smoke, resident of [facility]. FAMILY HISTORY: Significant for hypertension. CURRENT MEDICATIONS: Sinemet 25/100 q.i.d., lovastatin 40 mg p.o. at bedtime, vitamin D 1000 units daily, Plavix 75 daily, Aricept 5 mg at bedtime, pentoxifylline one tablet b.i.d., Zolpidem 10 mg at bedtime, insulin unknown dose. REVIEW OF SYSTEMS: Could not be done. The patient has after sensorium decreased responsiveness. No fever, no chills. PHYSICAL EXAMINATION: GENERAL: Elderly male lying in bed, staring into the space. VITAL SIGNS: Temperature is 101.3, pulse is 88, respirations are 33, blood pressure 151/54. HEENT: Dry mucous membranes. NECK: Supple, no lymphadenopathy, no thyromegaly. LUNGS: Scattered rhonchi bilaterally. CARDIOVASCULAR: S1, S2 heard. No gallop, no murmur, no rub. Apical impulse in left fifth intercostal space and midclavicular line. ABDOMEN: Soft and benign. No hepatosplenomegaly. No guarding, no rigidity. Hernial orifices are normal. PEG tube in place. EXTREMITIES: Decent pedal pulses. LABORATORY DATA: Significant for white count of 13,000, hemoglobin of 11.3, hematocrit of 33.6. Sodium is 129, potassium is 7.0, lactic acid is 5.2, glucose is 334, BUN and creatinine is 159 and 6.4. Urine shows more than 182 white blood cells. ASSESSMENT AND PLAN: 1. Sepsis secondary to urinary tract infection. The patient is started on IV Zosyn and IV vancomycin to cover broad spectrum bacteria, both gram positives, gram negatives. Also, vancomycin to cover for possible methicillin-resistant Staphylococcus aureus. ID consult requested. Also, Nephrology consult requested. Hypertension, continue IV fluids. 2. Acute kidney injury, probably secondary to acute tubular necrosis. Nephrology consulted. 3. Hyperkalemia. The patient was given sodium bicarbonate, calcium gluconate along with the insulin and D50W. Also, Kayexalate was given. Hypotension, Levophed if necessary. 4. Parkinsonism. Continue Sinemet via PEG tube. 5. Coronary artery disease. Continue Plavix 75 daily via PEG tube. 6. Peripheral arterial disease, pentoxifylline one tablet b.i.d. 7. Hypertension. The patient is hypotensive, now we will hold antihypertensives. 8. Peripheral neuropathy. Continue gabapentin. 9. Insulin-dependent diabetes. Continue insulin and coverage. 10. Deep venous thrombosis prophylaxis, heparin 5000 q.12 hours. PROGNOSIS: Guarded. Try to advance directives, talked with the family, family may agree for DNR. CRITICAL CARE STATEMENT: The high probability of a clinically significant sudden or life-threatening deterioration of the pulmonary, cardiac and renal systems require my full and direct attention, intervention, and personal management. Aggregate critical care time was 40 minutes. The time is in addition to the time spent performing reported procedures, but includes the followin. Data review and interpretation. 2. The patient assessment and monitoring of vital signs. 3. Documentation. 4. Medication orders and management. JOB# [id number] ANIVAL/NTS
--- NOTE | 2017-11-08 08:59 | Progress Note ---
Assessment and Plan Assessment and plan: --Acute respiratory failure; oxygen titrated O2 sats more than 90%, BiPAP as needed, Nebulizers IV steroids and IV antibiotics --HCAP; healthcare associated pneumonia, continue IV antibiotics, follow cultures, supportive care --Elevated D dimers in the setting of acute respirator failure; check VQ scan to rule out PE, lower extremity venous Doppler to rule out DVT, empiric anticoagulation with Lovenox renal dose, supportive care --Lactic acidosis; with metabolic acidosis secondary to renal failure, rule out sepsis, closely monitor --Hypertension; moderate control, continue current antihypertensives and when necessary medications --History of coronary artery disease status post CABG; resume home cardiac medications, cardiology evaluation if needed --Mild elevation of troponin; probably nonspecific secondary to acute renal failure, however patient has significant coronary artery disease, we'll closely monitor, consult cardiology if needed --Acute renal failure; probably secondary to ATN, closely monitor renal function gentle IV hydration, nephrology consulted --Hyperkalemia; corrected -- Hyponatremia at the time of admission; significant improvement closely monitor --Severe protein calorie malnutrition; supportive care, nutrition supplements --Full CODE STATUS --DC planning. Case management, discharge back to SNF once medically stable History Interval history: Patient seen and examined in the emergency room medical records reviewed Patient is minimally communicative, no new events reported by the nursing staff Patient's d-dimer is elevated >10,000, will check VQ scan, lower extremity venous Doppler Empiric anticoagulation with Lovenox[renal dose] Patient is comfortable in no acute distress Vital signs reviewed Hospitalist Physical - Constitutional Vitals: Temp Pulse Resp BP Pulse Ox 97.8 F 68 20 74/48 98 11/08/17 08:46 11/08/17 08:46 11/08/17 08:46 11/08/17 08:46 11/08/17 08:46 General appearance: Present: no acute distress, well-nourished - EENT Eyes: Present: PERRL, EOM intact - Neck Neck: Present: supple, normal ROM - Respiratory Respiratory effort: normal Respiratory: bilateral: diminished, rhonchi, negative: rales, wheezing - Cardiovascular Rhythm: regular Heart Sounds: Present: S1 & S2 - Extremities Extremities: no ischemia Extremity abnormal: edema - Abdominal General gastrointestinal: soft, non-tender, non-distended, normal bowel sounds, other (PEG tube in place) - Integumentary Integumentary: Present: clear, warm - Psychiatric Psychiatric: other (noncommunicative) - Neurologic Neurologic: other (noncommunicative) Results - Labs CBC & Chem 7: 11/07/17 15:29 11/07/17 21:05 Labs: Laboratory Last Values WBC 13.1 K/mm3 (4.5-11.0) H 11/07/17 15:29 RBC 3.93 M/mm3 (3.65-5.03) 11/07/17 15:29 Hgb 11.3 gm/dl (11.8-15.2) L 11/07/17 15:29 Hct 33.6 % (35.5-45.6) L 11/07/17 15:29 MCV 86 fl (84-94) 11/07/17 15:29 MCH 29 pg (28-32) 11/07/17 15:29 MCHC 34 % (32-34) 11/07/17 15:29 RDW 13.8 % (13.2-15.2) 11/07/17 15:29 Plt Count 190 K/mm3 (140-440) 11/07/17 15:29 Add Manual Diff Complete 11/07/17 15:29 Total Counted 100 11/07/17 15:29 Seg Neutrophils % Exhaust Machine Operator 11/07/17 15:29 Seg Neuts % (Manual) 88.0 % (40.0-70.0) H 11/07/17 15:29 Band Neutrophils % 1.0 % 11/07/17 15:29 Lymphocytes % (Manual) 6.0 % (13.4-35.0) L 11/07/17 15:29 Reactive Lymphs % (Man) 0 % 11/07/17 15:29 Monocytes % (Manual) 4.0 % (0.0-7.3) 11/07/17 15:29 Eosinophils % (Manual) 0 % (0.0-4.3) 11/07/17 15:29 Basophils % (Manual) 0 % (0.0-1.8) 11/07/17 15:29 Metamyelocytes % 0 % 11/07/17 15:29 Myelocytes % 1.0 % 11/07/17 15:29 Promyelocytes % 0 % 11/07/17 15:29 Blast Cells % 0 % 11/07/17 15:29 Nucleated RBC % 2.0 % (0.0-0.9) H 11/07/17 15:29 Seg Neutrophils # Man 11.5 K/mm3 (1.8-7.7) H 11/07/17 15:29 Band Neutrophils # 0.1 K/mm3 11/07/17 15:29 Lymphocytes # (Manual) 0.8 K/mm3 (1.2-5.4) L 11/07/17 15:29 Abs React Lymphs (Man) 0.0 K/mm3 11/07/17 15:29 Monocytes # (Manual) 0.5 K/mm3 (0.0-0.8) 11/07/17 15:29 Eosinophils # (Manual) 0.0 K/mm3 (0.0-0.4) 11/07/17 15:29 Basophils # (Manual) 0.0 K/mm3 (0.0-0.1) 11/07/17 15:29 Metamyelocytes # 0.0 K/mm3 11/07/17 15:29 Myelocytes # 0.1 K/mm3 11/07/17 15:29 Promyelocytes # 0.0 K/mm3 11/07/17 15:29 Blast Cells # 0.0 K/mm3 11/07/17 15:29 WBC Morphology Not Reportable 11/07/17 15:29 Hypersegmented Neuts Not Reportable 11/07/17 15:29 Hyposegmented Neuts Not Reportable 11/07/17 15:29 Hypogranular Neuts Not Reportable 11/07/17 15:29 Smudge Cells Not Reportable 11/07/17 15:29 Toxic Granulation Not Reportable 11/07/17 15:29 Toxic Vacuolation Not Reportable 11/07/17 15:29 Dohle Bodies Not Reportable 11/07/17 15:29 Pelger-Huet Anomaly Not Reportable 11/07/17 15:29 Karli Rods Not Reportable 11/07/17 15:29 Platelet Estimate Appears normal 11/07/17 15:29 Clumped Platelets Not Reportable 11/07/17 15:29 Plt Clumps, EDTA Not Reportable 11/07/17 15:29 Large Platelets Not Reportable 11/07/17 15:29 Giant Platelets Not Reportable 11/07/17 15:29 Platelet Satelliting Not Reportable 11/07/17 15:29 Plt Morphology Comment Not Reportable 11/07/17 15:29 RBC Morphology Not Reportable 11/07/17 15:29 Dimorphic RBCs Not Reportable 11/07/17 15:29 Polychromasia 1+ 11/07/17 15:29 Hypochromasia Not Reportable 11/07/17 15:29 Poikilocytosis Not Reportable 11/07/17 15:29 Anisocytosis 1+ 11/07/17 15:29 Microcytosis Not Reportable 11/07/17 15:29 Macrocytosis Not Reportable 11/07/17 15:29 Spherocytes Not Reportable 11/07/17 15:29 Pappenheimer Bodies Not Reportable 11/07/17 15:29 Sickle Cells Not Reportable 11/07/17 15:29 Target Cells Not Reportable 11/07/17 15:29 Tear Drop Cells Not Reportable 11/07/17 15:29 Ovalocytes Not Reportable 11/07/17 15:29 Helmet Cells Not Reportable 11/07/17 15:29 [place] Bodies Not Reportable 11/07/17 15:29 [place] Rings Not Reportable 11/07/17 15:29 [place] Cells Not Reportable 11/07/17 15:29 Bite Cells Not Reportable 11/07/17 15:29 Crenated Cell Not Reportable 11/07/17 15:29 Elliptocytes Not Reportable 11/07/17 15:29 Acanthocytes (Spur) Not Reportable 11/07/17 15:29 Rouleaux Not Reportable 11/07/17 15:29 Hemoglobin C Crystals Not Reportable 11/07/17 15:29 Schistocytes Not Reportable 11/07/17 15:29 Malaria parasites Not Reportable 11/07/17 15:29 Harshad Bodies Not Reportable 11/07/17 15:29 Hem Pathologist Commnt No 11/07/17 15:29 PT 17.4 Sec. (12.2-14.9) H 11/07/17 15:29 INR 1.35 (0.87-1.13) H 11/07/17 15:29 D-Dimer > 06037 ng/mlDDU (0-234) H 11/07/17 15:29 VBG pH 7.254 (7.320-7.420) L 11/07/17 15:29 Sodium 143 mmol/L (137-145) D 11/07/17 21:05 Potassium 4.8 mmol/L (3.6-5.0) D 11/07/17 21:05 Chloride 99.9 mmol/L (98-107) 11/07/17 21:05 Carbon Dioxide 22 mmol/L (22-30) 11/07/17 21:05 Anion Gap 26 mmol/L 11/07/17 21:05 BUN 139 mg/dL (9-20) H 11/07/17 21:05 Creatinine 5.3 mg/dL (0.8-1.5) H 11/07/17 21:05 Estimated GFR 13 ml/min 11/07/17 21:05 BUN/Creatinine Ratio 26 % 11/07/17 21:05 Glucose 65 mg/dL (75-100) L 11/07/17 21:05 POC Glucose 150 (70-105) H 11/08/17 06:46 Lactic Acid 6.60 mmol/L (0.7-2.0) H* 11/07/17 17:44 Calcium 8.3 mg/dL (8.4-10.2) L 11/07/17 21:05 Total Bilirubin 0.40 mg/dL (0.1-1.2) 11/07/17 15:29 AST 39 units/L (5-40) 11/07/17 15:29 ALT 13 units/L (7-56) 11/07/17 15:29 Alkaline Phosphatase 125 units/L (35-129) 11/07/17 15:29 Troponin T 0.037 ng/mL (0.00-0.029) H 11/07/17 15:29 Total Protein 7.3 g/dL (6.3-8.2) 11/07/17 15:29 Albumin 2.4 g/dL (3.9-5) L 11/07/17 15:29 Albumin/Globulin Ratio 0.5 % 11/07/17 15:29 Triglycerides 46 mg/dL (2-149) 11/07/17 15:29 Cholesterol 56 mg/dL (50-199) 11/07/17 15:29 LDL Cholesterol Direct 32 mg/dL (50-130) L 11/07/17 15:29 HDL Cholesterol 15 mg/dL (40-59) L 11/07/17 15:29 Cholesterol/HDL Ratio 3.73 % 11/07/17 15:29 Urine Color Yellow (Yellow) 11/07/17 20:10 Urine Turbidity Clear (Clear) 11/07/17 20:10 Urine pH 5.0 (5.0-7.0) 11/07/17 20:10 Ur Specific [place] 1.013 (1.003-1.030) 11/07/17 20:10 Urine Protein 30 mg/dl mg/dL (Negative) 11/07/17 20:10 Urine Glucose (UA) 50 mg/dL (Negative) 11/07/17 20:10 Urine Ketones Neg mg/dL (Negative) 11/07/17 20:10 Urine Blood Mod (Negative) 11/07/17 20:10 Urine Nitrite Neg (Negative) 11/07/17 20:10 Urine Bilirubin Neg (Negative) 11/07/17 20:10 Urine Urobilinogen < 2.0 mg/dL (<2.0) 11/07/17 20:10 Ur Leukocyte Esterase Lg (Negative) 11/07/17 20:10 Urine WBC (Auto) > 182.0 /HPF (0.0-6.0) H 11/07/17 20:10 Urine RBC (Auto) 93.0 /HPF (0.0-6.0) 11/07/17 20:10 U Epithel Cells (Auto) < 1.0 /HPF (0-13.0) 11/07/17 20:10 Urine Bacteria (Auto) 2+ /HPF (Negative) 11/07/17 20:10 Urine WBC Clumps 3+ /HPF 11/07/17 20:10 Ur Yeast w Hyphae 1+ /HPF 11/07/17 20:10 Urine Yeast (Budding) 3+ /HPF 11/07/17 20:10
--- NOTE | 2017-11-08 09:59 | Consultation ---
History of Present Illness - History of Present Illness Thank you for the consultation patient was evaluated today. Source of information; patient himself current records were also reviewed History of presenting illness; Patient is 77-year-old -[place] male who was brought into the emergency room with complaints uncontrolled blood sugar hypoxemia pulse ox was around 60% and later increased to low 90s patient does have a history of underlying hypertension diabetes hyperlipidemia and Parkinson's disease as well as coronary artery disease. He was admitted with acute severe renal failure which is currently improving patient has been currently diagnosed with the acute respiratory failure, healthcare acquired pneumonia lactic acidosis, and has also concurrently elevated troponin hypokalemia which has been improving. Creatinine is currently 5.3 with normal bicarbonate potassium in view and is around 139 hemoglobin 11.3 Past medical history is significant for hypertension Diabetes UTI Dementia Coronary artery disease CABG CVA Urinary retention TURP Feeding tube problems Allergies: known drug allergies Social history: unable to obtain Family history: unable to obtain Review of system is positive for uncontrolled blood sugar Complete review of systems obtained pertinent positive above mother's review of systems negative Physical examination General: No acute distress HEENT: Oral mucosa moist no pharyngeal erythema no pallor or icterus no uremic order Neck: Supple no evidence of any thyromegaly trachea midline no JVD Chest: Clear to auscultation no crackles are also wheezes anteriorly Heart: Regular rate and rhythm S1-S2 heard no S3-S4 Abdomen: Soft nontender no renal bruit no CVA tenderness no suprapubic fullness no organomegaly Extremity: Minimal edema dry skin no peripheral cyanosis pulses palpable Neurological: Alert awake follows command grossly nonfocal examination Back: Nontender thoracolumbar spine Musculoskeletal: No joint effusion noted Skin: No petechial rash/noted assessment and plan Acute kidney injury in a patient whose baseline creatinine has been normal approximately 2 weeks ago patient admitted with renal failure mostly appears to be predominantly to rule out a possibility of obstructive uropathy no indication for renal replacement therapy at this time she needs judicious hydration ultrasonogram basic labs avoidance of any formal nephrotoxic medication strict intake and output patient clinically appears to be volume depleted dehydrated, is a need for IV hydration and strict input and output monitoring Admitted with the pneumonia sepsis lactic acidosis currently still very sick but doing relatively better Dose medications for renal failure We'll order labs and ultrasound for workup of renal failure Renal function was fairly normal approximately 2 weeks ago, old records reviewed no acute emergent indication for renal replacement therapy If you have any questions please feel free to contact me at [phone] Medications and Allergies Allergies Allergy/AdvReac Type Severity Reaction Status Date / Time No Known Allergies Allergy Verified 09/26/17 17:35 Home Medications Medication Instructions Recorded Confirmed Last Taken Type Carbidopa/Levodopa 25-100 [Sinemet 1 tab PO QID 12/21/14 11/07/17 10/06/17 History 25/100] Lovastatin [Altoprev] 40 mg PO QHS 12/21/14 11/07/17 10/06/17 History Ascorbic Acid [Vitamin C] 500 mg PO DAILY 10/02/17 11/07/17 10/06/17 History Cholecalciferol (Vitamin D3) 1,000 unit PO DAILY 10/02/17 11/07/17 10/06/17 History [Vitamin D3] Clopidogrel Bisulfate [Plavix] 75 mg PO DAILY 10/02/17 11/07/17 10/06/17 History Donepezil HCl 5 mg PO QHS 10/02/17 11/07/17 10/06/17 History Metoclopramide [Reglan TAB] 10 mg PO TID 10/02/17 11/07/17 10/06/17 History Pentoxifylline 1 tab PO BID 10/02/17 11/07/17 10/06/17 History Sennosides [Senna Laxative] 8.6 mg PO DAILY 10/02/17 11/07/17 10/06/17 History Timolol 0.5% 1 drop OU DAILY 10/02/17 11/07/17 10/06/17 History amLODIPine [Norvasc] 10 mg PO DAILY 10/02/17 11/07/17 10/06/17 History guaiFENesin/DEXTROMETHORPHAN 10 ml PO Q6H PRN 10/02/17 11/07/17 10/06/17 History [Diabetic Tussin Dm Max-Str Liq] Gabapentin [Neurontin] 100 mg PO Q8HR #90 capsule 10/10/17 11/07/17 Unknown Rx Levofloxacin [Levaquin TAB] 500 mg FEEDTUBE QDAY 5 Days tablet 10/27/17 Unknown Rx Zolpidem [Ambien] 10 mg PO HS #10 tablet 10/27/17 11/07/17 Unknown Rx guaiFENesin DM [Guaifenesin Dm 10 ml PO Q6H PRN #1 bottle 10/27/17 11/07/17 Unknown Rx Syrup] traMADol [Ultram 50 MG tab] 50 mg PO QID PRN #20 tablet 10/27/17 11/07/17 Unknown Rx Insulin Aspart [NovoLOG Flexpen] 0 units SQ AC 11/07/17 11/07/17 Unknown History Active Meds: Active Medications Acetaminophen (Tylenol) 650 mg PO Q4H PRN PRN Reason: Pain MILD(1-3)/Fever >100.5/BAY Albuterol/Ipratropium (Duoneb *Not For Prn Use*) 1 ampul IH Q6HRT [facility] Last Admin: 11/08/17 09:18 Dose: 1 ampul Bisacodyl (Dulcolax) [address] QDAY PRN PRN Reason: Constipation unrelieved by MOM Enoxaparin Sodium (Lovenox) 70 mg 1 mg/kg (70 mg) SUB-Q Q12HR JOHANN Famotidine (Pepcid) 10 mg PO BID JOHANN Heparin Sodium (Porcine) (Heparin) 5,000 unit SUB-Q Q12HR [facility] Last Admin: 11/07/17 23:29 Dose: 5,000 unit Hydralazine HCl (Apresoline) 5 mg IV Q6HR PRN PRN Reason: Hypertension Last Admin: 11/07/17 23:30 Dose: 5 mg Sodium Chloride (Nacl 0.9% 1000 Ml) 1,000 mls @ 75 mls/hr IV DIRECT [facility] Last Admin: 11/08/17 06:35 Dose: 75 mls/hr Piperacillin Sod/Tazobactam Sod (Zosyn/Ns 2.25 Gm/50ml) 2.25 gm in 50 mls @ 100 mls/hr IV Q8HR JOHANN PRN Reason: Protocol Last Admin: 11/08/17 06:35 Dose: 100 mls/hr Magnesium Hydroxide (Milk Of Magnesia) 30 ml PO Q4H PRN PRN Reason: Constipation Morphine Sulfate (Morphine) 2 mg IV Q4H PRN PRN Reason: Pain, Moderate (4-6) Ondansetron HCl (Zofran) 4 mg IV Q8H PRN PRN Reason: N/V unrelieved by Reglan Exam - Vital Signs Vital signs: Vital Signs Temp Pulse Resp BP Pulse Ox 101.3 F H 88 33 H 151/54 94 11/07/17 14:56 11/07/17 14:56 11/07/17 14:56 11/07/17 14:56 11/07/17 14:56 Results - Lab Results 11/07/17 15:29 11/07/17 21:05 Most recent lab results Calcium 8.3 mg/dL (8.4-10.2) L 11/07/17 21:05
[2017-11-08] MEDS ORDERED: LOVENOX SUB-Q SCH ×3 (10:00→11:00)
--- NOTE | 2017-11-08 11:14 | Nuclear Medicine Report ---
PERFUSION LUNG SCAN: After injection of Technetium 99m macroaggregated albumin gamma camera imaging of the lungs in multiple projections demonstrates normal pulmonary contours with a homogeneous distribution of activity. No focal areas of perfusion deficiency are identified. IMPRESSION: Normal study.
[2017-11-08] MEDS: PEPCID PO SCH ×2 (13:00→21:31)
[2017-11-08] MEDS: TYLENOL PO PRN (13:01)
--- NOTE | 2017-11-08 19:43 | Event Note ---
Date: 11/08/17 VQ scan; low probability for PE Lower extremity venous Doppler; bilateral nonocclusive DVT Continue Lovenox, will change to Eliquis after discussing with the family members Continue current management
[2017-11-08] MEDS ORDERED: PROVENTIL IH PRN (22:10)
[2017-11-09 01:53] LABS: Uric Acid 6.3 mg/dL (3.5-7.6)
[2017-11-09] MEDS: ZOSYN/NS 2.25 GM/50ML 2.25 GM/50 ML BAG IV SCH ×3 (05:09→22:53)
[2017-11-09] MEDS: DUONEB *Not for PRN Use IH SCH ×3 (07:43→19:45)
--- NOTE | 2017-11-09 09:19 | Progress Note ---
Assessment and Plan Assessment and plan: --Severe Hypokalemia; replace per protocol and monitor levels, check magnesium --Lower extremity DVT; continue Eliquis per protocol, 10 mg twice a day for 1 week and later 5 mg twice a day Discussed with family, agree with anticoagulation --Acute respiratory failure; oxygen titrated O2 sats more than 90%, BiPAP as needed, Nebulizers IV steroids and IV antibiotics --HCAP; healthcare associated pneumonia, continue IV antibiotics, follow cultures, supportive care --Elevated D dimers ; VQ scan low probability PE, lower extremity venous Doppler acute and chronic DVT, DC Lovenox,Eliquis started --Lactic acidosis; with metabolic acidosis secondary to renal failure, rule out sepsis, closely monitor --Hypertension; moderate control, continue current antihypertensives and when necessary medications --History of coronary artery disease status post CABG; resume home cardiac medications, cardiology evaluation if needed --Mild elevation of troponin; probably nonspecific secondary to acute renal failure, however patient has significant coronary artery disease, we'll closely monitor, --Acute renal failure; probably secondary to ATN, gentle IV hydration, nephrology following --Hyperkalemia; corrected -- Hyponatremia at the time of admission; significant improvement closely monitor --Severe protein calorie malnutrition; supportive care, nutrition supplements --Full CODE STATUS --DC planning. Case management, discharge back to SNF once medically stable Plan of care, CODE STATUS discussed with the patient's family, POA the daughter from out of town Want Everything to be done, full code History Interval history: Patient seen and examined medical records reviewed Noncommunicative, not in acute distress Vital signs reviewed Family members at the bedside Hospitalist Physical - Constitutional Vitals: Temp Pulse Resp BP Pulse Ox 97.6 F 98 H 17 119/64 98 11/09/17 04:28 11/09/17 07:43 11/09/17 07:43 11/09/17 04:28 11/09/17 07:44 General appearance: Present: no acute distress, well-nourished, other ( noncommunicative) - EENT Eyes: Present: PERRL, EOM intact - Neck Neck: Present: supple, normal ROM - Respiratory Respiratory effort: normal Respiratory: bilateral: diminished, rhonchi, negative: rales, wheezing - Cardiovascular Rhythm: regular Heart Sounds: Present: S1 & S2 - Extremities Extremities: no ischemia Extremity abnormal: edema Peripheral Pulses: within normal limits - Abdominal General gastrointestinal: soft, non-tender, non-distended, normal bowel sounds - Integumentary Integumentary: Present: clear, warm - Psychiatric Psychiatric: appropriate mood/affect, cooperative - Neurologic Neurologic: CNII-XII intact, moves all extremities Results - Labs CBC & Chem 7: 11/07/17 15:29 11/09/17 09:32 Labs: Laboratory Last Values WBC 13.1 K/mm3 (4.5-11.0) H 11/07/17 15:29 RBC 3.93 M/mm3 (3.65-5.03) 11/07/17 15:29 Hgb 11.3 gm/dl (11.8-15.2) L 11/07/17 15: Hct 33.6 % (35.5-45.6) L 11/07/17 15:29 MCV 86 fl (84-94) 11/07/17 15: MCH 29 pg (28-32) 11/07/17 15: MCHC 34 % (32-34) 11/07/17 15:29 RDW 13.8 % (13.2-15.2) 11/07/17 15:29 Plt Count 190 K/mm3 (140-440) 11/07/17 15:29 Add Manual Diff Complete 11/07/17 15: Total Counted 100 11/07/17 15:29 Seg Neutrophils % Product Consultant 11/07/17 15:29 Seg Neuts % (Manual) 88.0 % (40.0-70.0) H 11/07/17 15:29 Band Neutrophils % 1.0 % 11/07/17 15:29 Lymphocytes % (Manual) 6.0 % (13.4-35.0) L 11/07/17 15:29 Reactive Lymphs % (Man) 0 % 11/07/17 15:29 Monocytes % (Manual) 4.0 % (0.0-7.3) 11/07/17 15:29 Eosinophils % (Manual) 0 % (0.0-4.3) 11/07/17 15:29 Basophils % (Manual) 0 % (0.0-1.8) 11/07/17 15:29 Metamyelocytes % 0 % 11/07/17 15:29 Myelocytes % 1.0 % 11/07/17 15:29 Promyelocytes % 0 % 11/07/17 15:29 Blast Cells % 0 % 11/07/17 15:29 Nucleated RBC % 2.0 % (0.0-0.9) H 11/07/17 15:29 Seg Neutrophils # Man 11.5 K/mm3 (1.8-7.7) H 11/07/17 15:29 Band Neutrophils # 0.1 K/mm3 11/07/17 15:29 Lymphocytes # (Manual) 0.8 K/mm3 (1.2-5.4) L 11/07/17 15:29 Abs React Lymphs (Man) 0.0 K/mm3 11/07/17 15:29 Monocytes # (Manual) 0.5 K/mm3 (0.0-0.8) 11/07/17 15:29 Eosinophils # (Manual) 0.0 K/mm3 (0.0-0.4) 11/07/17 15:29 Basophils # (Manual) 0.0 K/mm3 (0.0-0.1) 11/07/17 15:29 Metamyelocytes # 0.0 K/mm3 11/07/17 15:29 Myelocytes # 0.1 K/mm3 11/07/17 15:29 Promyelocytes # 0.0 K/mm3 11/07/17 15:29 Blast Cells # 0.0 K/mm3 11/07/17 15:29 WBC Morphology Not Reportable 11/07/17 15:29 Hypersegmented Neuts Not Reportable 11/07/17 15:29 Hyposegmented Neuts Not Reportable 11/07/17 15:29 Hypogranular Neuts Not Reportable 11/07/17 15:29 Smudge Cells Not Reportable 11/07/17 15:29 Toxic Granulation Not Reportable 11/07/17 15:29 Toxic Vacuolation Not Reportable 11/07/17 15:29 Dohle Bodies Not Reportable 11/07/17 15:29 Pelger-Huet Anomaly Not Reportable 11/07/17 15:29 Karli Rods Not Reportable 11/07/17 15:29 Platelet Estimate Appears normal 11/07/17 15:29 Clumped Platelets Not Reportable 11/07/17 15:29 Plt Clumps, EDTA Not Reportable 11/07/17 15:29 Large Platelets Not Reportable 11/07/17 15:29 Giant Platelets Not Reportable 11/07/17 15:29 Platelet Satelliting Not Reportable 11/07/17 15:29 Plt Morphology Comment Not Reportable 11/07/17 15:29 RBC Morphology Not Reportable 11/07/17 15:29 Dimorphic RBCs Not Reportable 11/07/17 15:29 Polychromasia 1+ 11/07/17 15:29 Hypochromasia Not Reportable 11/07/17 15:29 Poikilocytosis Not Reportable 11/07/17 15:29 Anisocytosis 1+ 11/07/17 15:29 Microcytosis Not Reportable 11/07/17 15:29 Macrocytosis Not Reportable 11/07/17 15:29 Spherocytes Not Reportable 11/07/17 15:29 Pappenheimer Bodies Not Reportable 11/07/17 15:29 Sickle Cells Not Reportable 11/07/17 15:29 Target Cells Not Reportable 11/07/17 15:29 Tear Drop Cells Not Reportable 11/07/17 15:29 Ovalocytes Not Reportable 11/07/17 15:29 Helmet Cells Not Reportable 11/07/17 15:29 Dove-[place]wood Bodies Not Reportable 11/07/17 15:29 Dawes Rings Not Reportable 11/07/17 15:29 Daniel Cells Not Reportable 11/07/17 15:29 Bite Cells Not Reportable 11/07/17 15:29 Crenated Cell Not Reportable 11/07/17 15:29 Elliptocytes Not Reportable 11/07/17 15:29 Acanthocytes (Spur) Not Reportable 11/07/17 15:29 Rouleaux Not Reportable 11/07/17 15:29 Hemoglobin C Crystals Not Reportable 11/07/17 15:29 Schistocytes Not Reportable 11/07/17 15:29 Malaria parasites Not Reportable 11/07/17 15:29 Harshad Bodies Not Reportable 11/07/17 15:29 Hem Pathologist Commnt No 11/07/17 15:29 PT 17.4 Sec. (12.2-14.9) H 11/07/17 15:29 INR 1.35 (0.87-1.13) H 11/07/17 15:29 D-Dimer > 80541 ng/mlDDU (0-234) H 11/07/17 15:29 VBG pH 7.254 (7.320-7.420) L 11/07/17 15:29 Sodium 143 mmol/L (137-145) D 11/07/17 21:05 Potassium 4.8 mmol/L (3.6-5.0) D 11/07/17 21:05 Chloride 99.9 mmol/L (98-107) 11/07/17 21:05 Carbon Dioxide 22 mmol/L (22-30) 11/07/17 21:05 Anion Gap 26 mmol/L 11/07/17 21:05 BUN 139 mg/dL (9-20) H 11/07/17 21:05 Creatinine 5.3 mg/dL (0.8-1.5) H 11/07/17 21:05 Estimated GFR 13 ml/min 11/07/17 21:05 BUN/Creatinine Ratio 26 % 11/07/17 21:05 Glucose 65 mg/dL (75-100) L 11/07/17 21:05 POC Glucose 228 (70-105) H 11/09/17 06:36 Osmolality 352 Mosm/kg 11/08/17 23:41 Lactic Acid 6.60 mmol/L (0.7-2.0) H* 11/07/17 17:44 Uric Acid 6.3 mg/dL (3.5-7.6) 11/08/17 23:41 Calcium 8.3 mg/dL (8.4-10.2) L 11/07/17 21:05 Total Bilirubin 0.40 mg/dL (0.1-1.2) 11/07/17 15:29 AST 39 units/L (5-40) 11/07/17 15:29 ALT 13 units/L (7-56) 11/07/17 15:29 Alkaline Phosphatase 125 units/L (35-129) 11/07/17 15:29 Total Creatine Kinase 900 units/L (55-170) H 11/08/17 23:41 Troponin T 0.037 ng/mL (0.00-0.029) H 11/07/17 15:29 Total Protein 7.3 g/dL (6.3-8.2) 11/07/17 15:29 Albumin 2.4 g/dL (3.9-5) L 11/07/17 15:29 Albumin/Globulin Ratio 0.5 % 11/07/17 15:29 Triglycerides 46 mg/dL (2-149) 11/07/17 15: Cholesterol 56 mg/dL (50-199) 11/07/17 15:29 LDL Cholesterol Direct 32 mg/dL (50-130) L 11/07/17 15: HDL Cholesterol 15 mg/dL (40-59) L 11/07/17 15: Cholesterol/HDL Ratio 3.73 % 11/07/17 15:29 Urine Color Yellow (Yellow) 11/07/17 20:10 Urine Turbidity Clear (Clear) 11/07/17 20:10 Urine pH 5.0 (5.0-7.0) 11/07/17 20:10 Ur Specific [place] 1.013 (1.003-1.030) 11/07/17 20:10 Urine Protein 30 mg/dl mg/dL (Negative) 11/07/17 20:10 Urine Glucose (UA) 50 mg/dL (Negative) 11/07/17 20:10 Urine Ketones Neg mg/dL (Negative) 11/07/17 20:10 Urine Blood Mod (Negative) 11/07/17 20:10 Urine Nitrite Neg (Negative) 11/07/17 20:10 Urine Bilirubin Neg (Negative) 11/07/17 20:10 Urine Urobilinogen < 2.0 mg/dL (<2.0) 11/07/17 20:10 Ur Leukocyte Esterase Lg (Negative) 11/07/17 20:10 Urine WBC (Auto) > 182.0 /HPF (0.0-6.0) H 11/07/17 20:10 Urine RBC (Auto) 93.0 /HPF (0.0-6.0) 11/07/17 20:10 U Epithel Cells (Auto) < 1.0 /HPF (0-13.0) 11/07/17 20:10 Urine Bacteria (Auto) 2+ /HPF (Negative) 11/07/17 20:10 Urine WBC Clumps 3+ /HPF 11/07/17 20:10 Ur Yeast w Hyphae 1+ /HPF 11/07/17 20:10 Urine Yeast (Budding) 3+ /HPF 11/07/17 20:10
--- NOTE | 2017-11-09 09:25 | Progress Note ---
Subjective Interval history: Patient was seen today for follow-up on multiple renal related issues Events of 24 hours vitals labs intake output medications were reviewed Interdisciplinary Notes were also reviewed Past medical history: Reviewed Social history: Reviewed Allergies: Reviewed Medication: Reviewed Labs: Reviewed Physical examination Gen.: No acute distress HEENT: Oral mucosa moist, mild pallor no icterus Neck: Supple no thyromegaly nodular mass or JVD Chest: Clear to auscultation anteriorly Heart: Regular rate and rhythm S1 and S2 heard Abdomen: Soft nontender no renal bruit no CVA tenderness no suprapubic fullness Extremity: Edema approximately 1+ dry skin no purpuric rash Dermatology: Dry skin no rash Neurological: patient is more alert and awake Assessment and plan Acute renal failure: Patient mostly appeared to be severely dehydrated/has urinary tract infection history of prior TURP obstructive uropathy Hypernatremia: Needs monitoring and close follow-up Elevated creatinine kinase, nneeds follow-up. KCL with 1/2 NS and dollow for hypokalemia Patient needs daily basic metabolic profile Acidosis: Mostly lactic resulting from hypoperfusion possibly sepsis to monitor and follow Dehydration: Moderately severe maintain hydration follow-up on labs No indication for renal replacement therapy here Leukocytosis abnormal UA likely patient does have urinary tract infection with prior history of UTI an indwelling James catheter Severe volume depletion: Patient likely has acute tubular necrosis as well due to prolonged renal ischemia rule out any possibility of obstructive etiology Objective - Vital Signs Vital signs: Vital Signs - 12hr 11/08/17 11/08/17 11/08/17 21:26 21:27 21:38 Temperature 97.2 F L Pulse Rate 109 H 105 H 91 H Pulse Rate [ Anterior Bilateral Throughout] Respiratory 18 18 Rate Respiratory Rate [Anterior Bilateral Throughout] Blood Pressure 99/50 Blood Pressure 99/50 [Left] O2 Sat by Pulse 96 97 98 Oximetry 11/09/17 11/09/17 11/09/17 00:01 01:25 04:00 Temperature 97.8 F Pulse Rate 101 H 100 H 96 H Pulse Rate [ Anterior Bilateral Throughout] Respiratory 18 27 H Rate Respiratory Rate [Anterior Bilateral Throughout] Blood Pressure 110/57 Blood Pressure [Left] O2 Sat by Pulse 96 Oximetry 11/09/17 11/09/17 11/09/17 04:28 07:43 07:44 Temperature 97.6 F Pulse Rate 104 H Pulse Rate [ 98 H Anterior Bilateral Throughout] Respiratory 18 Rate Respiratory 17 Rate [Anterior Bilateral Throughout] Blood Pressure 119/64 Blood Pressure [Left] O2 Sat by Pulse 89 98 Oximetry - Lab 11/07/17 15:29 11/10/17 09:42 Most recent lab results Calcium 8.3 mg/dL (8.4-10.2) L 11/07/17 21:05
[2017-11-09] MEDS ORDERED: ELIQUIS PO SCH ×2 (10:00→18:00)
[2017-11-09 10:12] LABS: BUN/Creatinine Ratio 57; Blood Urea Nitrogen 51 mg/dL (9-20); Calcium 8.7 mg/dL (8.4-10.2); Hemolysis Index 52
[2017-11-09] MEDS ORDERED: ULTRAM PO PRN (10:27)
[2017-11-09] MEDS ORDERED: POTASSIUM CHLORIDE FEEDTUBE ONE (10:30)
[2017-11-09] MEDS ORDERED: SODIUM BICARBONATE FEEDTUBE PRN ×2 (10:47→10:48)
[2017-11-09] MEDS ORDERED: PANCREAZE DR 10,500 UNIT FEEDTUBE PRN ×2 (10:47→10:48)
[2017-11-09] MEDS ORDERED: SIMPLE SYRUP FEEDTUBE PRN ×4 (10:47→10:48)
[2017-11-09] MEDS: PEPCID PO SCH ×2 (12:20→22:53)
[2017-11-09] MEDS: KCL 10MEQ/100ML 10 MEQ/100 ML BAG IV SCH ×3 (12:22→15:57)
[2017-11-09] MEDS: NACL 0.9% 1000 ML 1,000 ML IV SCH (12:22)
[2017-11-09] MEDS: SINEMET PO SCH ×3 (15:57→22:53)
[2017-11-09] MEDS: NEURONTIN PO SCH ×2 (15:58→22:53)
[2017-11-09] MEDS: AMBIEN PO SCH (22:53)
[2017-11-09] MEDS: ELIQUIS PO SCH (22:53)
[2017-11-09] MEDS: ARICEPT PO SCH (22:53)
[2017-11-10] MEDS: KCL 40 MEQ in NACL 0.45% 1000 ML 1,000 ML IV SCH ×2 (01:40→20:28)
[2017-11-10] MEDS: ZOSYN/NS 2.25 GM/50ML 2.25 GM/50 ML BAG IV SCH ×3 (05:26→22:31)
[2017-11-10] MEDS: NEURONTIN PO SCH ×3 (05:26→22:31)
[2017-11-10] MEDS: DUONEB *Not for PRN Use IH SCH ×3 (07:23→20:30)
[2017-11-10 10:12] LABS: BUN/Creatinine Ratio 43; Blood Urea Nitrogen 30 mg/dL (9-20); Hemolysis Index 1
--- NOTE | 2017-11-10 10:38 | Progress Note ---
Subjective Interval history: Patient was seen today for follow-up on multiple renal related issues Events of 24 hours vitals labs intake output medications were reviewed does not speak clearly Interdisciplinary Notes were also reviewed Past medical history: Reviewed Social history: Reviewed Allergies: Reviewed Medication: Reviewed Labs: Reviewed Physical examination Gen.: No acute distress HEENT: Oral mucosa moist, mild pallor no icterus Neck: Supple no thyromegaly nodular mass or JVD Chest: Clear to auscultation anteriorly Heart: Regular rate and rhythm S1 and S2 heard Abdomen: Soft nontender no renal bruit no CVA tenderness no suprapubic fullness Extremity: Edema approximately 1+ dry skin no purpuric rash Dermatology: Dry skin no rash Neurological: alert awake less lethargic Assessment and plan Acute renal failure: Patient mostly appeared to be severely dehydrated/has urinary tract infection history of prior TURP obstructive uropathy renal function appears to have normalized today Hypernatremia needs close monitoring and follow-up improving for now urine culture unremarkable blood cultures negative so far Hypokalemia has responded well to the current treatment Needs follow-up on renal function on a daily basis maintaining adequate hydration Acidosis: Mostly lactic resulting from hypoperfusion possibly sepsis to monitor patient will need to follow up with urology Severe volume depletion: Patient likely has acute tubular necrosis as well due to prolonged renal ischemia rule out any possibility of obstructive etiology Objective - Vital Signs Vital signs: Vital Signs - 12hr 11/10/17 11/10/17 11/10/17 00:35 04:41 07:19 Temperature 97.9 F 98.3 F Pulse Rate 79 Pulse Rate [ 110 H Anterior Bilateral Throughout] Respiratory 22 24 Rate Respiratory 28 H Rate [Anterior Bilateral Throughout] Blood Pressure 118/51 120/53 O2 Sat by Pulse 92 95 Oximetry 11/10/17 11/10/17 11/10/17 07:34 08:41 09:45 Temperature 98.0 F Pulse Rate 118 H 115 H Pulse Rate [ 113 H Anterior Bilateral Throughout] Respiratory 20 Rate Respiratory 24 Rate [Anterior Bilateral Throughout] Blood Pressure 104/49 O2 Sat by Pulse 95 Oximetry 11/10/17 09:47 Temperature 98.0 F Pulse Rate Pulse Rate [ Anterior Bilateral Throughout] Respiratory 16 Rate Respiratory Rate [Anterior Bilateral Throughout] Blood Pressure O2 Sat by Pulse Oximetry - Lab 11/07/17 15:29 11/10/17 09:42 Most recent lab results Calcium 9.0 mg/dL (8.4-10.2) 11/10/17 09:42 Magnesium 1.90 mg/dL (1.7-2.3) 11/10/17 05:00
[2017-11-10] MEDS ORDERED: POTASSIUM CHLORIDE FEEDTUBE ONE (10:53)
[2017-11-10] MEDS: PLAVIX PO SCH (10:59)
[2017-11-10] MEDS: PEPCID PO SCH ×2 (10:59→22:30)
[2017-11-10] MEDS: ELIQUIS PO SCH ×3 (10:59→22:30)
[2017-11-10] MEDS: SINEMET PO SCH ×3 (10:59→22:30)
--- NOTE | 2017-11-10 12:14 | Vascular Lab Report ---
LOWER EXTREMITY VENOUS DUPLEX: REASON FOR EXAM: Elevated d-dimer. COMMENTS ON THE RIGHT: Partially occluding chronic thrombus is noted in the right profunda femoris vein. Acute, partially occluding thrombus is seen in the distal superficial femoral vein extending into the popliteal vein. Acute superficial venous thrombosis is seen in the proximal right greater saphenous vein near the common femoral vein. The remaining veins visualized are freely compressible without evidence of internal echogenicity. Spontaneous and phasic flow is present proximally. COMMENTS ON THE LEFT: Partially occluding acute deep venous thrombosis is seen in the superficial femoral vein. The remaining veins visualized are freely compressible without evidence of internal echogenicity. Spontaneous and phasic flow is present proximally. IMPRESSION: Acute deep venous thrombosis involving the distal right superficial femoral and popliteal veins. Acute deep venous thrombosis involving the left superficial femoral vein. Acute superficial venous thrombosis involving the proximal right greater saphenous vein. 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
[2017-11-10] MEDS ORDERED: K-DUR PO ONE (13:09)
[2017-11-10] MEDS ORDERED: POTASSIUM CHLORIDE ONE (13:13)
--- NOTE | 2017-11-10 18:33 | Progress Note ---
Assessment and Plan Assessment and plan: --Severe Hypokalemia; slightly improved, replace per protocol -- Hypernatremia ; free water flushes, increase liquids, closely monitor --Lower extremity DVT; continue Eliquis per protocol, 10 mg twice a day for 1 week and later 5 mg twice a day, follow hematology upon discharge --Acute respiratory failure; oxygen titrated O2 sats more than 90%, BiPAP as needed, Nebulizers IV steroids and IV antibiotics --HCAP; healthcare associated pneumonia, continue IV antibiotics, follow cultures, supportive care --Elevated D dimers ; VQ scan low probability PE, lower extremity venous Doppler acute and chronic DVT, DC Lovenox,Eliquis started --Lactic acidosis; with metabolic acidosis secondary to renal failure, rule out sepsis, closely monitor --Hypertension; moderate control, continue current antihypertensives and when necessary medications --History of coronary artery disease status post CABG; resume home cardiac medications, cardiology evaluation if needed --Mild elevation of troponin; probably nonspecific secondary to acute renal failure, however patient has significant coronary artery disease, we'll closely monitor, --Acute renal failure; probably secondary to ATN, renal function completely improved --Severe protein calorie malnutrition; supportive care, nutrition supplements --Full CODE STATUS --DC planning. Case management, discharge back to SNF once medically stable Plan of care, CODE STATUS discussed with the patient's family, POA the daughter from out of town Want Everything to be done, full code Closely monitor electrolytes, if reasonable level patient can be discharged and transferred to correction tomorrow History Interval history: Patient seen and examined medical records reviewed Confused noncommunicative Has hypernatremia, on free water flushes, no improvement in sodium levels Not sure whether the patient received free water flushes Vital signs reviewed Hospitalist Physical - Constitutional Vitals: Temp Pulse Resp BP Pulse Ox 98.0 F 120 H 20 104/79 96 11/10/17 10:56 11/10/17 16:08 11/10/17 16:08 11/10/17 10:56 11/10/17 10:56 General appearance: Present: no acute distress, well-nourished, other ( noncommunicative) - EENT Eyes: Present: PERRL, EOM intact - Neck Neck: Present: supple, normal ROM - Respiratory Respiratory effort: normal Respiratory: bilateral: diminished, negative: rales, rhonchi, wheezing - Cardiovascular Rhythm: regular Heart Sounds: Present: S1 & S2 - Extremities Extremities: no ischemia, No edema - Abdominal General gastrointestinal: soft, non-tender, non-distended, normal bowel sounds, other (PEG tube in place) - Integumentary Integumentary: Present: clear, warm - Psychiatric Psychiatric: appropriate mood/affect, cooperative - Neurologic Neurologic: CNII-XII intact, moves all extremities Results - Labs CBC & Chem 7: 11/07/17 15:29 11/10/17 09:42 Labs: Laboratory Last Values WBC 13.1 K/mm3 (4.5-11.0) H 11/07/17 15: RBC 3.93 M/mm3 (3.65-5.03) 11/07/17 15: Hgb 11.3 gm/dl (11.8-15.2) L 11/07/17 15: Hct 33.6 % (35.5-45.6) L 11/07/17 15: MCV 86 fl (84-94) 11/07/17 15:29 MCH 29 pg (28-32) 11/07/17 15: MCHC 34 % (32-34) 11/07/17 15: RDW 13.8 % (13.2-15.2) 11/07/17 15: Plt Count 190 K/mm3 (140-440) 11/07/17 15:29 Add Manual Diff Complete 11/07/17 15: Total Counted 100 11/07/17 15: Seg Neutrophils % Linen Controller 11/07/17 15: Seg Neuts % (Manual) 88.0 % (40.0-70.0) H 11/07/17 15:29 Band Neutrophils % 1.0 % 11/07/17 15:29 Lymphocytes % (Manual) 6.0 % (13.4-35.0) L 11/07/17 15:29 Reactive Lymphs % (Man) 0 % 11/07/17 15:29 Monocytes % (Manual) 4.0 % (0.0-7.3) 11/07/17 15:29 Eosinophils % (Manual) 0 % (0.0-4.3) 11/07/17 15:29 Basophils % (Manual) 0 % (0.0-1.8) 11/07/17 15:29 Metamyelocytes % 0 % 11/07/17 15:29 Myelocytes % 1.0 % 11/07/17 15:29 Promyelocytes % 0 % 11/07/17 15:29 Blast Cells % 0 % 11/07/17 15:29 Nucleated RBC % 2.0 % (0.0-0.9) H 11/07/17 15:29 Seg Neutrophils # Man 11.5 K/mm3 (1.8-7.7) H 11/07/17 15:29 Band Neutrophils # 0.1 K/mm3 11/07/17 15:29 Lymphocytes # (Manual) 0.8 K/mm3 (1.2-5.4) L 11/07/17 15:29 Abs React Lymphs (Man) 0.0 K/mm3 11/07/17 15:29 Monocytes # (Manual) 0.5 K/mm3 (0.0-0.8) 11/07/17 15:29 Eosinophils # (Manual) 0.0 K/mm3 (0.0-0.4) 11/07/17 15:29 Basophils # (Manual) 0.0 K/mm3 (0.0-0.1) 11/07/17 15:29 Metamyelocytes # 0.0 K/mm3 11/07/17 15:29 Myelocytes # 0.1 K/mm3 11/07/17 15:29 Promyelocytes # 0.0 K/mm3 11/07/17 15:29 Blast Cells # 0.0 K/mm3 11/07/17 15:29 WBC Morphology Not Reportable 11/07/17 15:29 Hypersegmented Neuts Not Reportable 11/07/17 15:29 Hyposegmented Neuts Not Reportable 11/07/17 15:29 Hypogranular Neuts Not Reportable 11/07/17 15:29 Smudge Cells Not Reportable 11/07/17 15:29 Toxic Granulation Not Reportable 11/07/17 15:29 Toxic Vacuolation Not Reportable 11/07/17 15:29 Dohle Bodies Not Reportable 11/07/17 15:29 Pelger-Huet Anomaly Not Reportable 11/07/17 15:29 Karli Rods Not Reportable 11/07/17 15:29 Platelet Estimate Appears normal 11/07/17 15:29 Clumped Platelets Not Reportable 11/07/17 15:29 Plt Clumps, EDTA Not Reportable 11/07/17 15:29 Large Platelets Not Reportable 11/07/17 15:29 Giant Platelets Not Reportable 11/07/17 15:29 Platelet Satelliting Not Reportable 11/07/17 15:29 Plt Morphology Comment Not Reportable 11/07/17 15:29 RBC Morphology Not Reportable 11/07/17 15:29 Dimorphic RBCs Not Reportable 11/07/17 15:29 Polychromasia 1+ 11/07/17 15:29 Hypochromasia Not Reportable 11/07/17 15:29 Poikilocytosis Not Reportable 11/07/17 15:29 Anisocytosis 1+ 11/07/17 15:29 Microcytosis Not Reportable 11/07/17 15:29 Macrocytosis Not Reportable 11/07/17 15:29 Spherocytes Not Reportable 11/07/17 15:29 Pappenheimer Bodies Not Reportable 11/07/17 15:29 Sickle Cells Not Reportable 11/07/17 15:29 Target Cells Not Reportable 11/07/17 15:29 Tear Drop Cells Not Reportable 11/07/17 15:29 Ovalocytes Not Reportable 11/07/17 15:29 Helmet Cells Not Reportable 11/07/17 15:29 [place] Bodies Not Reportable 11/07/17 15:29 [place] Rings Not Reportable 11/07/17 15:29 Daniel Cells Not Reportable 11/07/17 15:29 Bite Cells Not Reportable 11/07/17 15:29 Crenated Cell Not Reportable 11/07/17 15:29 Elliptocytes Not Reportable 11/07/17 15:29 Acanthocytes (Spur) Not Reportable 11/07/17 15:29 Rouleaux Not Reportable 11/07/17 15:29 Hemoglobin C Crystals Not Reportable 11/07/17 15:29 Schistocytes Not Reportable 11/07/17 15:29 Malaria parasites Not Reportable 11/07/17 15:29 Harshad Bodies Not Reportable 11/07/17 15:29 Hem Pathologist Commnt No 11/07/17 15:29 PT 17.4 Sec. (12.2-14.9) H 11/07/17 15:29 INR 1.35 (0.87-1.13) H 11/07/17 15:29 D-Dimer > 08488 ng/mlDDU (0-234) H 11/07/17 15:29 VBG pH 7.254 (7.320-7.420) L 11/07/17 15:29 Sodium 157 mmol/L (137-145) H 11/10/17 09:42 Potassium 3.2 mmol/L (3.6-5.0) L 11/10/17 09:42 Chloride 120.9 mmol/L (98-107) H 11/10/17 09:42 Carbon Dioxide 26 mmol/L (22-30) 11/10/17 09:42 Anion Gap 13 mmol/L 11/10/17 09:42 BUN 30 mg/dL (9-20) H 11/10/17 09:42 Creatinine 0.7 mg/dL (0.8-1.5) L 11/10/17 09:42 Estimated GFR > 60 ml/min 11/10/17 09:42 BUN/Creatinine Ratio 43 % 11/10/17 09:42 Glucose 310 mg/dL (75-100) H 11/10/17 09:42 POC Glucose 279 (70-105) H 11/10/17 05:32 Osmolality 352 Mosm/kg 11/08/17 23:41 Lactic Acid 6.60 mmol/L (0.7-2.0) H* 11/07/17 17:44 Uric Acid 6.3 mg/dL (3.5-7.6) 11/08/17 23:41 Calcium 9.0 mg/dL (8.4-10.2) 11/10/17 09:42 Magnesium 1.90 mg/dL (1.7-2.3) 11/10/17 05:00 Total Bilirubin 0.40 mg/dL (0.1-1.2) 11/07/17 15:29 AST 39 units/L (5-40) 11/07/17 15:29 ALT 13 units/L (7-56) 11/07/17 15:29 Alkaline Phosphatase 125 units/L (35-129) 11/07/17 15:29 Total Creatine Kinase 900 units/L (55-170) H 11/08/17 23:41 Troponin T 0.037 ng/mL (0.00-0.029) H 11/07/17 15:29 Total Protein 7.3 g/dL (6.3-8.2) 11/07/17 15:29 Albumin 2.4 g/dL (3.9-5) L 11/07/17 15:29 Albumin/Globulin Ratio 0.5 % 11/07/17 15:29 Triglycerides 46 mg/dL (2-149) 11/07/17 15: Cholesterol 56 mg/dL (50-199) 11/07/17 15: LDL Cholesterol Direct 32 mg/dL (50-130) L 11/07/17 15: HDL Cholesterol 15 mg/dL (40-59) L 11/07/17 15: Cholesterol/HDL Ratio 3.73 % 11/07/17 15:29 Urine Color Yellow (Yellow) 11/07/17 20:10 Urine Turbidity Clear (Clear) 11/07/17 20:10 Urine pH 5.0 (5.0-7.0) 11/07/17 20:10 Ur Specific [place] 1.013 (1.003-1.030) 11/07/17 20:10 Urine Protein 30 mg/dl mg/dL (Negative) 11/07/17 20:10 Urine Glucose (UA) 50 mg/dL (Negative) 11/07/17 20:10 Urine Ketones Neg mg/dL (Negative) 11/07/17 20:10 Urine Blood Mod (Negative) 11/07/17 20:10 Urine Nitrite Neg (Negative) 11/07/17 20:10 Urine Bilirubin Neg (Negative) 11/07/17 20:10 Urine Urobilinogen < 2.0 mg/dL (<2.0) 11/07/17 20:10 Ur Leukocyte Esterase Lg (Negative) 11/07/17 20:10 Urine WBC (Auto) > 182.0 /HPF (0.0-6.0) H 11/07/17 20:10 Urine RBC (Auto) 93.0 /HPF (0.0-6.0) 11/07/17 20:10 U Epithel Cells (Auto) < 1.0 /HPF (0-13.0) 11/07/17 20:10 Urine Bacteria (Auto) 2+ /HPF (Negative) 11/07/17 20:10 Urine WBC Clumps 3+ /HPF 11/07/17 20:10 Ur Yeast w Hyphae 1+ /HPF 11/07/17 20:10 Urine Yeast (Budding) 3+ /HPF 11/07/17 20:10
[2017-11-10] MEDS: ARICEPT PO SCH (22:31)
[2017-11-10] MEDS: AMBIEN PO SCH (22:31)
[2017-11-11] MEDS: TYLENOL PO PRN (00:29)
[2017-11-11] MEDS: ZOSYN/NS 2.25 GM/50ML 2.25 GM/50 ML BAG IV SCH (06:48)
[2017-11-11] MEDS: NEURONTIN PO SCH ×3 (06:48→21:58)
--- NOTE | 2017-11-11 08:48 | Progress Note ---
Subjective Interval history: Patient was seen today for follow-up on multiple renal related issues Events of 24 hours vitals labs intake output medications were reviewed he is less lethargic Interdisciplinary Notes were also reviewed Past medical history: Reviewed Social history: Reviewed Allergies: Reviewed Medication: Reviewed Labs: Reviewed Physical examination Gen.: No acute distress HEENT: Oral mucosa moist, mild pallor no icterus Neck: Supple no thyromegaly nodular mass or JVD Chest: Clear to auscultation anteriorly Heart: Regular rate and rhythm S1 and S2 heard Abdomen: Soft nontender no renal bruit no CVA tenderness no suprapubic fullness Extremity: Edema approximately 1+ dry skin no purpuric rash Dermatology: Dry skin no rash Neurological: patient is less letahrgic Assessment and plan Acute renal failure:renal function normalized Hypokalemia: To monitor and follow Hypernatremia please monitor and follow mostly resulting from free water deficit Monitor renal labs, poorly controlled diabetes which will make him prone to more infections and complications please address History of urinary tract infection and retention, currently her cultures negative Acidosis: Mostly lactic resulting from hypoperfusion possibly sepsis to monitor and follow Dehydration: Moderately severe maintain hydration follow-up on labs overall stable to better from renal standpoint Objective - Vital Signs Vital signs: Vital Signs - 12hr 11/10/17 11/10/17 11/10/17 22:00 22:25 23:24 Temperature 102.7 F H Pulse Rate 118 H Respiratory 22 22 Rate Respiratory 22 Rate [denies] Blood Pressure 118/51 O2 Sat by Pulse 94 100 Oximetry 11/10/17 11/11/17 11/11/17 23:38 01:29 04:22 Temperature 99.3 F Pulse Rate 116 H 108 H Respiratory 22 20 Rate Respiratory Rate [denies] Blood Pressure 122/63 O2 Sat by Pulse 100 Oximetry - Lab 11/12/17 05:29 11/12/17 09:13 Most recent lab results Calcium 9.0 mg/dL (8.4-10.2) 11/10/17 09:42 Magnesium 1.90 mg/dL (1.7-2.3) 11/10/17 05:00
[2017-11-11] MEDS: DUONEB *Not for PRN Use IH SCH ×3 (09:10→20:09)
[2017-11-11] MEDS: ELIQUIS PO SCH ×2 (09:11→21:58)
[2017-11-11] MEDS: GUAIFENESIN DM SYRUP PO PRN (09:12)
[2017-11-11] MEDS: PEPCID PO SCH ×2 (09:12→21:58)
[2017-11-11] MEDS: PLAVIX PO SCH (09:12)
[2017-11-11] MEDS: SINEMET PO SCH ×4 (09:14→21:58)
--- NOTE | 2017-11-11 09:44 | Progress Note ---
Assessment and Plan Assessment and plan: --Febrile illness; supportive care --New left-sided pneumonia/ HCAP probably due to aspiration, patient already on Zosyn, add vancomycin, reduce PEG feeds, aspiration precautions Follow cultures, consider ID evaluation if needed -- Hypokalemia; slightly improved, replace per protocol -- Hypernatremia ; free water flushes, increase liquids, closely monitor, IV improvement --Lower extremity DVT; continue Eliquis per protocol, 10 mg twice a day for 1 week and later 5 mg twice a day, follow hematology upon discharge --Acute respiratory failure; oxygen titrated O2 sats more than 90%, BiPAP as needed, Nebulizers IV steroids and IV antibiotics --HCAP; healthcare associated pneumonia, continue IV" Zosyn follow cultures, supportive care --Elevated D dimers ; VQ scan low probability PE, lower extremity venous Doppler acute and chronic DVT, DC Lovenox,Eliquis started --Lactic acidosis; with metabolic acidosis secondary to renal failure, rule out sepsis, closely monitor --Hypertension; moderate control, continue current antihypertensives and when necessary medications --History of coronary artery disease status post CABG; resume home cardiac medications, cardiology evaluation if needed --Mild elevation of troponin; probably nonspecific secondary to acute renal failure, however patient has significant coronary artery disease, we'll closely monitor, --Acute renal failure; probably secondary to ATN, renal function completely improved --Severe protein calorie malnutrition; supportive care, nutrition supplements --Full CODE STATUS --DC planning. Case management, discharge back to SNF once medically stable Plan of care, CODE STATUS discussed with the patient's family, POA the daughter from out of town Want Everything to be done, full code Closely monitor electrolytes, if reasonable level patient can be discharged and transferred to fdc tomorrow History Interval history: patient seen and examined this morning medical records reviewed Spiked fever MAXIMUM TEMPERATURE 102 Cultures were sent, repeat chest x-ray consistent with left-sided pneumonia probably due to aspiration Right pneumonia significantly improved Patient is noncommunicative not in acute distress Hospitalist Physical - Constitutional Vitals: Temp Pulse Resp BP Pulse Ox 99.3 F 108 H 20 122/63 100 11/11/17 04:22 11/11/17 04:22 11/11/17 04:22 11/11/17 04:22 11/11/17 04:22 General appearance: Present: no acute distress, well-nourished, other ( noncommunicative) - EENT Eyes: Present: PERRL, EOM intact - Neck Neck: Present: supple, normal ROM - Respiratory Respiratory effort: labored Respiratory: bilateral: diminished, rhonchi, negative: rales, wheezing - Cardiovascular Rhythm: regular Heart Sounds: Present: S1 & S2 - Extremities Extremities: no ischemia, No edema - Abdominal General gastrointestinal: soft, non-tender, non-distended, normal bowel sounds, other (PEG tube Place) - Integumentary Integumentary: Present: clear, warm - Psychiatric Psychiatric: appropriate mood/affect, cooperative - Neurologic Neurologic: CNII-XII intact, moves all extremities Results - Labs CBC & Chem 7: 11/07/17 15:29 11/11/17 09:45 Labs: Laboratory Last Values WBC 13.1 K/mm3 (4.5-11.0) H 11/07/17 15:29 RBC 3.93 M/mm3 (3.65-5.03) 11/07/17 15:29 Hgb 11.3 gm/dl (11.8-15.2) L 11/07/17 15:29 Hct 33.6 % (35.5-45.6) L 11/07/17 15:29 MCV 86 fl (84-94) 11/07/17 15:29 MCH 29 pg (28-32) 11/07/17 15:29 MCHC 34 % (32-34) 11/07/17 15:29 RDW 13.8 % (13.2-15.2) 11/07/17 15: Plt Count 190 K/mm3 (140-440) 11/07/17 15:29 Add Manual Diff Complete 11/07/17 15:29 Total Counted 100 11/07/17 15: Seg Neutrophils % [employer] [place] 11/07/17 15:29 Seg Neuts % (Manual) 88.0 % (40.0-70.0) H 11/07/17 15:29 Band Neutrophils % 1.0 % 11/07/17 15:29 Lymphocytes % (Manual) 6.0 % (13.4-35.0) L 11/07/17 15:29 Reactive Lymphs % (Man) 0 % 11/07/17 15:29 Monocytes % (Manual) 4.0 % (0.0-7.3) 11/07/17 15:29 Eosinophils % (Manual) 0 % (0.0-4.3) 11/07/17 15:29 Basophils % (Manual) 0 % (0.0-1.8) 11/07/17 15:29 Metamyelocytes % 0 % 11/07/17 15:29 Myelocytes % 1.0 % 11/07/17 15:29 Promyelocytes % 0 % 11/07/17 15:29 Blast Cells % 0 % 11/07/17 15:29 Nucleated RBC % 2.0 % (0.0-0.9) H 11/07/17 15:29 Seg Neutrophils # Man 11.5 K/mm3 (1.8-7.7) H 11/07/17 15:29 Band Neutrophils # 0.1 K/mm3 11/07/17 15:29 Lymphocytes # (Manual) 0.8 K/mm3 (1.2-5.4) L 11/07/17 15:29 Abs React Lymphs (Man) 0.0 K/mm3 11/07/17 15:29 Monocytes # (Manual) 0.5 K/mm3 (0.0-0.8) 11/07/17 15:29 Eosinophils # (Manual) 0.0 K/mm3 (0.0-0.4) 11/07/17 15:29 Basophils # (Manual) 0.0 K/mm3 (0.0-0.1) 11/07/17 15:29 Metamyelocytes # 0.0 K/mm3 11/07/17 15:29 Myelocytes # 0.1 K/mm3 11/07/17 15:29 Promyelocytes # 0.0 K/mm3 11/07/17 15:29 Blast Cells # 0.0 K/mm3 11/07/17 15:29 WBC Morphology Not Reportable 11/07/17 15:29 Hypersegmented Neuts Not Reportable 11/07/17 15:29 Hyposegmented Neuts Not Reportable 11/07/17 15:29 Hypogranular Neuts Not Reportable 11/07/17 15:29 Smudge Cells Not Reportable 11/07/17 15:29 Toxic Granulation Not Reportable 11/07/17 15:29 Toxic Vacuolation Not Reportable 11/07/17 15:29 Dohle Bodies Not Reportable 11/07/17 15:29 Pelger-Huet Anomaly Not Reportable 11/07/17 15:29 Karli Rods Not Reportable 11/07/17 15:29 Platelet Estimate Appears normal 11/07/17 15:29 Clumped Platelets Not Reportable 11/07/17 15:29 Plt Clumps, EDTA Not Reportable 11/07/17 15:29 Large Platelets Not Reportable 11/07/17 15:29 Giant Platelets Not Reportable 11/07/17 15:29 Platelet Satelliting Not Reportable 11/07/17 15:29 Plt Morphology Comment Not Reportable 11/07/17 15:29 RBC Morphology Not Reportable 11/07/17 15:29 Dimorphic RBCs Not Reportable 11/07/17 15:29 Polychromasia 1+ 11/07/17 15:29 Hypochromasia Not Reportable 11/07/17 15:29 Poikilocytosis Not Reportable 11/07/17 15:29 Anisocytosis 1+ 11/07/17 15:29 Microcytosis Not Reportable 11/07/17 15:29 Macrocytosis Not Reportable 11/07/17 15:29 Spherocytes Not Reportable 11/07/17 15:29 Pappenheimer Bodies Not Reportable 11/07/17 15:29 Sickle Cells Not Reportable 11/07/17 15:29 Target Cells Not Reportable 11/07/17 15:29 Tear Drop Cells Not Reportable 11/07/17 15:29 Ovalocytes Not Reportable 11/07/17 15:29 Helmet Cells Not Reportable 11/07/17 15:29 [place] Bodies Not Reportable 11/07/17 15:29 [place] Rings Not Reportable 11/07/17 15:29 [place] Cells Not Reportable 11/07/17 15:29 Bite Cells Not Reportable 11/07/17 15:29 Crenated Cell Not Reportable 11/07/17 15:29 Elliptocytes Not Reportable 11/07/17 15:29 Acanthocytes (Spur) Not Reportable 11/07/17 15:29 Rouleaux Not Reportable 11/07/17 15:29 Hemoglobin C Crystals Not Reportable 11/07/17 15:29 Schistocytes Not Reportable 11/07/17 15:29 Malaria parasites Not Reportable 11/07/17 15:29 Harshad Bodies Not Reportable 11/07/17 15:29 Hem Pathologist Commnt No 11/07/17 15:29 PT 17.4 Sec. (12.2-14.9) H 11/07/17 15:29 INR 1.35 (0.87-1.13) H 11/07/17 15:29 D-Dimer > 67951 ng/mlDDU (0-234) H 11/07/17 15:29 VBG pH 7.254 (7.320-7.420) L 11/07/17 15:29 Sodium 157 mmol/L (137-145) H 11/10/17 09:42 Potassium 3.2 mmol/L (3.6-5.0) L 11/10/17 09:42 Chloride 120.9 mmol/L (98-107) H 11/10/17 09:42 Carbon Dioxide 26 mmol/L (22-30) 11/10/17 09:42 Anion Gap 13 mmol/L 11/10/17 09:42 BUN 30 mg/dL (9-20) H 11/10/17 09:42 Creatinine 0.7 mg/dL (0.8-1.5) L 11/10/17 09:42 Estimated GFR > 60 ml/min 11/10/17 09:42 BUN/Creatinine Ratio 43 % 11/10/17 09:42 Glucose 310 mg/dL (75-100) H 11/10/17 09:42 POC Glucose 289 (70-105) H 11/11/17 06:26 Osmolality 352 Mosm/kg 11/08/17 23:41 Lactic Acid 6.60 mmol/L (0.7-2.0) H* 11/07/17 17:44 Uric Acid 6.3 mg/dL (3.5-7.6) 11/08/17 23:41 Calcium 9.0 mg/dL (8.4-10.2) 11/10/17 09:42 Magnesium 1.90 mg/dL (1.7-2.3) 11/10/17 05:00 Total Bilirubin 0.40 mg/dL (0.1-1.2) 11/07/17 15:29 AST 39 units/L (5-40) 11/07/17 15:29 ALT 13 units/L (7-56) 11/07/17 15:29 Alkaline Phosphatase 125 units/L (35-129) 11/07/17 15:29 Total Creatine Kinase 900 units/L (55-170) H 11/08/17 23:41 Troponin T 0.037 ng/mL (0.00-0.029) H 11/07/17 15:29 Total Protein 7.3 g/dL (6.3-8.2) 11/07/17 15:29 Albumin 2.4 g/dL (3.9-5) L 11/07/17 15:29 Albumin/Globulin Ratio 0.5 % 11/07/17 15:29 Triglycerides 46 mg/dL (2-149) 11/07/17 15:29 Cholesterol 56 mg/dL (50-199) 11/07/17 15:29 LDL Cholesterol Direct 32 mg/dL (50-130) L 11/07/17 15:29 HDL Cholesterol 15 mg/dL (40-59) L 11/07/17 15:29 Cholesterol/HDL Ratio 3.73 % 11/07/17 15:29 Urine Color Yellow (Yellow) 11/07/17 20:10 Urine Turbidity Clear (Clear) 11/07/17 20:10 Urine pH 5.0 (5.0-7.0) 11/07/17 20:10 Ur Specific [place] 1.013 (1.003-1.030) 11/07/17 20:10 Urine Protein 30 mg/dl mg/dL (Negative) 11/07/17 20:10 Urine Glucose (UA) 50 mg/dL (Negative) 11/07/17 20:10 Urine Ketones Neg mg/dL (Negative) 11/07/17 20:10 Urine Blood Mod (Negative) 11/07/17 20:10 Urine Nitrite Neg (Negative) 11/07/17 20:10 Urine Bilirubin Neg (Negative) 11/07/17 20:10 Urine Urobilinogen < 2.0 mg/dL (<2.0) 11/07/17 20:10 Ur Leukocyte Esterase Lg (Negative) 11/07/17 20:10 Urine WBC (Auto) > 182.0 /HPF (0.0-6.0) H 11/07/17 20:10 Urine RBC (Auto) 93.0 /HPF (0.0-6.0) 11/07/17 20:10 U Epithel Cells (Auto) < 1.0 /HPF (0-13.0) 11/07/17 20:10 Urine Bacteria (Auto) 2+ /HPF (Negative) 11/07/17 20:10 Urine WBC Clumps 3+ /HPF 11/07/17 20:10 Ur Yeast w Hyphae 1+ /HPF 11/07/17 20:10 Urine Yeast (Budding) 3+ /HPF 11/07/17 20:10
[2017-11-11 10:13] LABS: Calcium 8.4 mg/dL (8.4-10.2)
--- NOTE | 2017-11-11 11:42 | XRay Report ---
AP CHEST :11/11/17 CLINICAL: Follow up pneumonia. COMPARISON:11/07/17 FINDINGS: Some improvement with decreased right upper lobe airspace disease and less confluent more patchy airspace disease in the right lung base. However, new patchy airspace disease in the left lower lobe. Left upper lobe remains clear. The heart and pulmonary vessels are normal. No tubes or lines. Median sternotomy wires and mediastinal surgical clips. IMPRESSION: Interval improvement in right sided pneumonia but new pneumonia involving the left lower lobe.
[2017-11-11] MEDS: KCL 40 MEQ in NACL 0.45% 1000 ML 1,000 ML IV SCH (12:33)
[2017-11-11] MEDS: ZOSYN/NS 4.5GM/100ML 4.5 GM/100 ML VIAL IV SCH ×2 (15:10→21:59)
[2017-11-11] MEDS: ARICEPT PO SCH (21:58)
[2017-11-11] MEDS: AMBIEN PO SCH (21:58)
[2017-11-11] MEDS: VANCOMYCIN/NS 1 GM/250 ML 1 GM/250 ML BAG IV SCH (21:59)
[2017-11-12] MEDS: NEURONTIN PO SCH ×3 (05:51→22:13)
[2017-11-12] MEDS: ZOSYN/NS 4.5GM/100ML 4.5 GM/100 ML VIAL IV SCH ×3 (05:51→22:13)
[2017-11-12 06:01] LABS: Basophils % (Auto) 0.3 % (0.0-1.8); Eosinophils # (Auto) 0.1 K/mm3 (0.0-0.4); Eosinophils % (Auto) 0.8 % (0.0-4.3); Hematocrit 28.8 % (35.5-45.6); Hemoglobin 9.3 gm/dl (11.8-15.2); Lymphocytes % (Auto) 9.2 % (13.4-35.0); Mean Corpuscular HGB Conc 32 % (32-34); Mean Corpuscular Hemoglobin 28 pg (28-32); Mean Corpuscular Volume 86 fl (84-94); Monocytes % (Auto) 8.6 % (0.0-7.3); Platelet Count 142 K/mm3 (140-440); Red Blood Count 3.34 M/mm3 (3.65-5.03); Red Cell Distribution Width 14.9 % (13.2-15.2)
[2017-11-12] MEDS: DUONEB *Not for PRN Use IH SCH ×3 (07:52→19:50)
--- NOTE | 2017-11-12 08:48 | Progress Note ---
Subjective Interval history: Patient was seen today for follow-up on multiple renal related issues Events of 24 hours vitals labs intake output medications were reviewed patient is somewhat encephalopathic today Interdisciplinary Notes were also reviewed Past medical history: Reviewed Social history: Reviewed Allergies: Reviewed Medication: Reviewed Labs: Reviewed Physical examination Gen.: No acute distress HEENT: Oral mucosa moist, mild pallor no icterus Neck: Supple no thyromegaly nodular mass or JVD Chest: Clear to auscultation anteriorly Heart: Regular rate and rhythm S1 and S2 heard Abdomen: Soft nontender no renal bruit no CVA tenderness no suprapubic fullness Extremity: Edema approximately 1+ dry skin no purpuric rash Dermatology: Dry skin no rash Neurological: arousable but more sleepy Assessment and plan Acute renal failure:renal function had worsened yesterday but better today Hypokalemia: doing better Hypernatremia slowly improving at this time free water as tolerated and follow Monitor renal labs, poorly controlled diabetes which will make him prone to more infections and complications please address History of urinary tract infection and retention, currently her cultures negative Acidosis: Mostly lactic resulting from hypoperfusion possibly sepsis to monitor and follow Dehydration: currently doing much better on tube feeding he'll be prone to complications which can happen in bed bound patient including pneumonia and urinary tract infection and sepsis overall stable to better from renal standpoint, prognosis appears to be poor given the age and multiple health issues Objective - Vital Signs Vital signs: Vital Signs - 12hr 11/12/17 11/12/17 11/12/17 00:40 01:42 04:59 Temperature 98.4 F 98.7 F Pulse Rate 110 H 105 H Pulse Rate [ Anterior Bilateral Throughout] Respiratory 20 20 Rate Respiratory Rate [Anterior Bilateral Throughout] Blood Pressure 126/70 104/52 O2 Sat by Pulse 95 94 90 Oximetry 11/12/17 11/12/17 11/12/17 06:27 07:52 07:53 Temperature Pulse Rate 102 H Pulse Rate [ 102 H Anterior Bilateral Throughout] Respiratory Rate Respiratory 22 Rate [Anterior Bilateral Throughout] Blood Pressure O2 Sat by Pulse 100 Oximetry - Lab 11/12/17 05:29 11/12/17 09:13 Most recent lab results Calcium 8.4 mg/dL (8.4-10.2) 11/11/17 09:45 Magnesium 1.90 mg/dL (1.7-2.3) 11/10/17 05:00
[2017-11-12] MEDS: GUAIFENESIN DM SYRUP PO PRN (09:11)
[2017-11-12 10:09] LABS: BUN/Creatinine Ratio 33; Blood Urea Nitrogen 40 mg/dL (9-20); Calcium 8.3 mg/dL (8.4-10.2); Hemolysis Index 0
[2017-11-12] MEDS: PEPCID PO SCH ×2 (10:58→22:12)
[2017-11-12] MEDS: PLAVIX PO SCH (10:58)
[2017-11-12] MEDS: ELIQUIS PO SCH ×2 (10:58→22:13)
[2017-11-12] MEDS: SINEMET PO SCH ×4 (10:58→22:12)
[2017-11-12] MEDS: MORPHINE IV PRN ×2 (11:42→22:11)
--- NOTE | 2017-11-12 17:13 | Progress Note ---
Assessment and Plan Assessment and plan: -- Hypernatremia ; free water flushes, closely monitor, IV fluids --left-sided pneumonia/ HCAP probably due to aspiration, patient already on Zosyn, add vancomycin, reduce PEG feeds, aspiration precautions Follow cultures, consider ID evaluation if needed -- Hypokalemia; slightly improved, replace per protocol --Lower extremity DVT; continue Eliquis per protocol, 10 mg twice a day for 1 week and later 5 mg twice a day, follow hematology upon discharge --Acute respiratory failure; oxygen titrated O2 sats more than 90%, BiPAP as needed, Nebulizers IV steroids and IV antibiotics --HCAP; healthcare associated pneumonia, continue IV Zosyn follow cultures, --Elevated D dimers ; negative PE, and positive DVT,on Eliquis --Lactic acidosis; resolved --Hypertension; continue current antihypertensives --History of coronary artery disease status post CABG; resume home cardiac medications, cardiology evaluation if needed --Mild elevation of troponin; probably nonspecific secondary to acute renal failure, however patient has significant coronary artery disease, we'll closely monitor, --Acute renal failure; probably secondary to ATN, renal function completely improved --Severe protein calorie malnutrition; supportive care, nutrition supplements --Full CODE STATUS --DC planning. Case management, discharge back to SNF once medically stable History Interval history: Patient seen and evaluated medical records reviewed No new events reported by the nursing staff Afebrile Hospitalist Physical - Constitutional Vitals: Temp Pulse Resp BP Pulse Ox 98.8 F 105 H 23 113/62 94 11/12/17 11:53 11/12/17 13:20 11/12/17 13:20 11/12/17 11:53 11/12/17 11:53 General appearance: Present: no acute distress, well-nourished, other ( noncommunicative) - EENT Eyes: Present: PERRL, EOM intact - Neck Neck: Present: supple, normal ROM - Respiratory Respiratory effort: normal Respiratory: bilateral: diminished, rhonchi, negative: rales, wheezing - Cardiovascular Rhythm: regular Heart Sounds: Present: S1 & S2 - Extremities Extremities: no ischemia, No edema - Abdominal General gastrointestinal: soft, non-tender, non-distended, normal bowel sounds - Integumentary Integumentary: Present: clear, warm - Psychiatric Psychiatric: other (unresponsive) - Neurologic Neurologic: other (noncommunicative) Results - Labs CBC & Chem 7: 11/12/17 05:29 11/12/17 09:13 Labs: Laboratory Last Values WBC 11.1 K/mm3 (4.5-11.0) H 11/12/17 05:29 RBC 3.34 M/mm3 (3.65-5.03) L 11/12/17 05:29 Hgb 9.3 gm/dl (11.8-15.2) L 11/12/17 05:29 Hct 28.8 % (35.5-45.6) L 11/12/17 05:29 MCV 86 fl (84-94) 11/12/17 05:29 MCH 28 pg (28-32) 11/12/17 05:29 MCHC 32 % (32-34) 11/12/17 05:29 RDW 14.9 % (13.2-15.2) 11/12/17 05:29 Plt Count 142 K/mm3 (140-440) 11/12/17 05:29 Lymph % (Auto) 9.2 % (13.4-35.0) L 11/12/17 05:29 [place] % (Auto) 8.6 % (0.0-7.3) H 11/12/17 05:29 Eos % (Auto) 0.8 % (0.0-4.3) 11/12/17 05:29 Baso % (Auto) 0.3 % (0.0-1.8) 11/12/17 05:29 Lymph # 1.0 K/mm3 (1.2-5.4) L 11/12/17 05:29 [place] # 1.0 K/mm3 (0.0-0.8) H 11/12/17 05:29 Eos # 0.1 K/mm3 (0.0-0.4) 11/12/17 05:29 Baso # 0.0 K/mm3 (0.0-0.1) 11/12/17 05:29 Add Manual Diff Complete 11/07/17 15:29 Total Counted 100 11/07/17 15:29 Seg Neutrophils % 81.1 % (40.0-70.0) H 11/12/17 05:29 Seg Neuts % (Manual) 88.0 % (40.0-70.0) H 11/07/17 15:29 Band Neutrophils % 1.0 % 11/07/17 15:29 Lymphocytes % (Manual) 6.0 % (13.4-35.0) L 11/07/17 15:29 Reactive Lymphs % (Man) 0 % 11/07/17 15:29 Monocytes % (Manual) 4.0 % (0.0-7.3) 11/07/17 15:29 Eosinophils % (Manual) 0 % (0.0-4.3) 11/07/17 15:29 Basophils % (Manual) 0 % (0.0-1.8) 11/07/17 15:29 Metamyelocytes % 0 % 11/07/17 15:29 Myelocytes % 1.0 % 11/07/17 15:29 Promyelocytes % 0 % 11/07/17 15:29 Blast Cells % 0 % 11/07/17 15:29 Nucleated RBC % 2.0 % (0.0-0.9) H 11/07/17 15:29 Seg Neutrophils # 9.0 K/mm3 (1.8-7.7) H 11/12/17 05:29 Seg Neutrophils # Man 11.5 K/mm3 (1.8-7.7) H 11/07/17 15:29 Band Neutrophils # 0.1 K/mm3 11/07/17 15:29 Lymphocytes # (Manual) 0.8 K/mm3 (1.2-5.4) L 11/07/17 15:29 Abs React Lymphs (Man) 0.0 K/mm3 11/07/17 15:29 Monocytes # (Manual) 0.5 K/mm3 (0.0-0.8) 11/07/17 15:29 Eosinophils # (Manual) 0.0 K/mm3 (0.0-0.4) 11/07/17 15:29 Basophils # (Manual) 0.0 K/mm3 (0.0-0.1) 11/07/17 15:29 Metamyelocytes # 0.0 K/mm3 11/07/17 15:29 Myelocytes # 0.1 K/mm3 11/07/17 15:29 Promyelocytes # 0.0 K/mm3 11/07/17 15:29 Blast Cells # 0.0 K/mm3 11/07/17 15:29 WBC Morphology Not Reportable 11/07/17 15:29 Hypersegmented Neuts Not Reportable 11/07/17 15:29 Hyposegmented Neuts Not Reportable 11/07/17 15:29 Hypogranular Neuts Not Reportable 11/07/17 15:29 Smudge Cells Not Reportable 11/07/17 15:29 Toxic Granulation Not Reportable 11/07/17 15:29 Toxic Vacuolation Not Reportable 11/07/17 15:29 Dohle Bodies Not Reportable 11/07/17 15:29 Pelger-Huet Anomaly Not Reportable 11/07/17 15:29 Karli Rods Not Reportable 11/07/17 15:29 Platelet Estimate Appears normal 11/07/17 15:29 Clumped Platelets Not Reportable 11/07/17 15:29 Plt Clumps, EDTA Not Reportable 11/07/17 15:29 Large Platelets Not Reportable 11/07/17 15:29 Giant Platelets Not Reportable 11/07/17 15:29 Platelet Satelliting Not Reportable 11/07/17 15:29 Plt Morphology Comment Not Reportable 11/07/17 15:29 RBC Morphology Not Reportable 11/07/17 15:29 Dimorphic RBCs Not Reportable 11/07/17 15:29 Polychromasia 1+ 11/07/17 15:29 Hypochromasia Not Reportable 11/07/17 15:29 Poikilocytosis Not Reportable 11/07/17 15:29 Anisocytosis 1+ 11/07/17 15:29 Microcytosis Not Reportable 11/07/17 15:29 Macrocytosis Not Reportable 11/07/17 15:29 Spherocytes Not Reportable 11/07/17 15:29 Pappenheimer Bodies Not Reportable 11/07/17 15:29 Sickle Cells Not Reportable 11/07/17 15:29 Target Cells Not Reportable 11/07/17 15:29 Tear Drop Cells Not Reportable 11/07/17 15:29 Ovalocytes Not Reportable 11/07/17 15:29 Helmet Cells Not Reportable 11/07/17 15:29 [place] Bodies Not Reportable 11/07/17 15:29 [place] Rings Not Reportable 11/07/17 15:29 [place] Cells Not Reportable 11/07/17 15:29 Bite Cells Not Reportable 11/07/17 15:29 Crenated Cell Not Reportable 11/07/17 15:29 Elliptocytes Not Reportable 11/07/17 15:29 Acanthocytes (Spur) Not Reportable 11/07/17 15:29 Rouleaux Not Reportable 11/07/17 15:29 Hemoglobin C Crystals Not Reportable 11/07/17 15:29 Schistocytes Not Reportable 11/07/17 15:29 Malaria parasites Not Reportable 11/07/17 15:29 Harshad Bodies Not Reportable 11/07/17 15:29 Hem Pathologist Commnt No 11/07/17 15:29 PT 17.4 Sec. (12.2-14.9) H 11/07/17 15:29 INR 1.35 (0.87-1.13) H 11/07/17 15:29 D-Dimer > 73332 ng/mlDDU (0-234) H 11/07/17 15:29 VBG pH 7.254 (7.320-7.420) L 11/07/17 15:29 Sodium 156 mmol/L (137-145) H 11/12/17 09:13 Potassium 4.1 mmol/L (3.6-5.0) 11/12/17 09:13 Chloride 121.9 mmol/L (98-107) H 11/12/17 09:13 Carbon Dioxide 24 mmol/L (22-30) 11/12/17 09:13 Anion Gap 14 mmol/L 11/12/17 09:13 BUN 40 mg/dL (9-20) H 11/12/17 09:13 Creatinine 1.2 mg/dL (0.8-1.5) 11/12/17 09:13 Estimated GFR > 60 ml/min 11/12/17 09:13 BUN/Creatinine Ratio 33 % 11/12/17 09:13 Glucose 314 mg/dL (75-100) H 11/12/17 09:13 POC Glucose 311 (70-105) H 11/12/17 11:36 Osmolality 355 Mosm/kg 11/12/17 09:13 Lactic Acid 6.60 mmol/L (0.7-2.0) H* 11/07/17 17:44 Uric Acid 3.9 mg/dL (3.5-7.6) 11/12/17 09:13 Calcium 8.3 mg/dL (8.4-10.2) L 11/12/17 09:13 Magnesium 1.90 mg/dL (1.7-2.3) 11/10/17 05:00 Total Bilirubin 0.40 mg/dL (0.1-1.2) 11/07/17 15:29 AST 39 units/L (5-40) 11/07/17 15:29 ALT 13 units/L (7-56) 11/07/17 15:29 Alkaline Phosphatase 125 units/L (35-129) 11/07/17 15:29 Total Creatine Kinase 900 units/L (55-170) H 11/08/17 23:41 Troponin T 0.037 ng/mL (0.00-0.029) H 11/07/17 15:29 Total Protein 7.3 g/dL (6.3-8.2) 11/07/17 15:29 Albumin 2.4 g/dL (3.9-5) L 11/07/17 15:29 Albumin/Globulin Ratio 0.5 % 11/07/17 15:29 Triglycerides 46 mg/dL (2-149) 11/07/17 15:29 Cholesterol 56 mg/dL (50-199) 11/07/17 15:29 LDL Cholesterol Direct 32 mg/dL (50-130) L 11/07/17 15:29 HDL Cholesterol 15 mg/dL (40-59) L 11/07/17 15:29 Cholesterol/HDL Ratio 3.73 % 11/07/17 15:29 Urine Color Yellow (Yellow) 11/07/17 20:10 Urine Turbidity Clear (Clear) 11/07/17 20:10 Urine pH 5.0 (5.0-7.0) 11/07/17 20:10 Ur Specific [place] 1.013 (1.003-1.030) 11/07/17 20:10 Urine Protein 30 mg/dl mg/dL (Negative) 11/07/17 20:10 Urine Glucose (UA) 50 mg/dL (Negative) 11/07/17 20:10 Urine Ketones Neg mg/dL (Negative) 11/07/17 20:10 Urine Blood Mod (Negative) 11/07/17 20:10 Urine Nitrite Neg (Negative) 11/07/17 20:10 Urine Bilirubin Neg (Negative) 11/07/17 20:10 Urine Urobilinogen < 2.0 mg/dL (<2.0) 11/07/17 20:10 Ur Leukocyte Esterase Lg (Negative) 11/07/17 20:10 Urine WBC (Auto) > 182.0 /HPF (0.0-6.0) H 11/07/17 20:10 Urine RBC (Auto) 93.0 /HPF (0.0-6.0) 11/07/17 20:10 U Epithel Cells (Auto) < 1.0 /HPF (0-13.0) 11/07/17 20:10 Urine Bacteria (Auto) 2+ /HPF (Negative) 11/07/17 20:10 Urine WBC Clumps 3+ /HPF 11/07/17 20:10 Ur Yeast w Hyphae 1+ /HPF 11/07/17 20:10 Urine Yeast (Budding) 3+ /HPF 11/07/17 20:10
[2017-11-12] MEDS: VANCOMYCIN/NS 1 GM/250 ML 1 GM/250 ML BAG IV SCH (20:35)
[2017-11-12] MEDS: ARICEPT PO SCH (22:12)
[2017-11-12] MEDS: AMBIEN PO SCH (22:13)
[2017-11-13] MEDS: NEURONTIN PO SCH ×3 (05:52→22:22)
[2017-11-13] MEDS: ZOSYN/NS 4.5GM/100ML 4.5 GM/100 ML VIAL IV SCH ×3 (05:53→22:23)
[2017-11-13 06:05] LABS: BUN/Creatinine Ratio 30; Blood Urea Nitrogen 27 mg/dL (9-20); Calcium 7.8 mg/dL (8.4-10.2); Hemolysis Index 7
--- NOTE | 2017-11-13 09:26 | Progress Note ---
Assessment and Plan - Patient Problems (1) Acute renal failure Current Visit: Yes Status: Acute Qualifiers: Acute renal failure type: unspecified Plan to address problem: improving. Scr down (2) Hypernatremia Current Visit: Yes Status: Acute Plan to address problem: suggest to increase free water intake (3) Anemia Current Visit: Yes Status: Acute (4) Encephalopathy Current Visit: Yes Status: Acute (5) Pneumonia Current Visit: Yes Status: Acute (6) Malnutrition Current Visit: Yes Status: Acute (7) Diabetes Current Visit: No Status: Chronic Qualifiers: Diabetes mellitus type: type 2 (8) DVT (deep venous thrombosis) Current Visit: Yes Status: Acute Subjective Date of service: 11/13/17 Interval history: pt is non communicative, not in distress Objective - Vital Signs Vital signs: Vital Signs - 12hr 11/13/17 11/13/17 11/13/17 00:49 01:08 01:09 Temperature 99.7 F H Pulse Rate 107 H 111 H Respiratory 22 18 Rate Blood Pressure 125/55 O2 Sat by Pulse 95 89 92 Oximetry 11/13/17 11/13/17 11/13/17 04:04 04:05 06:00 Temperature 100.2 F H Pulse Rate 102 H 106 H 104 H Respiratory 22 Rate Blood Pressure 110/55 O2 Sat by Pulse 96 95 Oximetry 11/13/17 07:40 Temperature 100.6 F H Pulse Rate Respiratory 24 Rate Blood Pressure 142/73 O2 Sat by Pulse Oximetry - General Appearance General appearance: chronically ill EENT: mucous membranes dry Neck: no JVD Respiratory: Present: Decreased Breath Sounds Cardiology: regular Gastrointestinal: normoactive bowel sounds - Lab 11/12/17 05:29 11/13/17 05:24 Most recent lab results Calcium 7.8 mg/dL (8.4-10.2) L 11/13/17 05:24 Magnesium 1.90 mg/dL (1.7-2.3) 11/10/17 05:00
[2017-11-13] MEDS: SINEMET PO SCH ×5 (09:57→22:22)
[2017-11-13] MEDS: ELIQUIS PO SCH ×2 (09:58→22:22)
[2017-11-13] MEDS: PLAVIX PO SCH (09:58)
[2017-11-13] MEDS: PEPCID PO SCH ×2 (09:58→22:21)
[2017-11-13] MEDS: KCL 40 MEQ in NACL 0.45% 1000 ML 1,000 ML IV SCH (11:14)
[2017-11-13] MEDS: DUONEB *Not for PRN Use IH SCH ×3 (11:39→20:00)
[2017-11-13] MEDS: MORPHINE IV PRN (17:55)
--- NOTE | 2017-11-13 18:35 | Progress Note ---
Assessment and Plan Assessment and plan: --Persistent fever; secondary to aspiration pneumonia continue current antibiotics Check abdominal CT, for any intra-abdominal pathology/fluid collection, --Sepsis; secondary to aspiration pneumonia, --left-sided pneumonia/ HCAP probably due to aspiration, patient already on Zosyn, add vancomycin, reduce PEG feeds, aspiration precautions, Follow cultures, consider ID evaluation if needed --Acute respiratory failure; oxygen titrated O2 sats more than 90%, BiPAP as needed, Nebulizers IV steroids and IV antibiotics -- Hypernatremia ; free water flushes, closely monitor, IV fluids --Lower extremity DVT; continue Eliquis per protocol, [Elevated D dimers ; negative PE, ,positive DVT] --Type 2 diabetes mellitus; uncontrolled, increase long-acting insulin dose, Accu-Chek sliding scale coverage and tube feeds --Lactic acidosis; resolved --Hypertension; continue current antihypertensives --History of coronary artery disease status post CABG; resume home cardiac medications, cardiology evaluation if needed --Acute renal failure; resolved --Severe protein calorie malnutrition; supportive care, nutrition supplements --Full CODE STATUS --DC planning. Case management, discharge back to SNF once medically stable History Interval history: Patient seen and examined medical records reviewed Unresponsive and noncommunicative Not in acute distress, vital signs reviewed Persistent Low-grade fever Hospitalist Physical - Constitutional Vitals: Temp Pulse Resp BP Pulse Ox 100.6 F H 101 H 24 104/50 97 11/13/17 07:40 11/13/17 13:30 11/13/17 11:39 11/13/17 13:30 11/13/17 13:30 General appearance: Present: no acute distress, well-nourished, other ( noncommunicative) - EENT Eyes: Present: PERRL, EOM intact - Neck Neck: Present: supple, normal ROM - Respiratory Respiratory effort: normal Respiratory: bilateral: diminished, rhonchi, negative: rales, wheezing - Cardiovascular Rhythm: regular Heart Sounds: Present: S1 & S2 - Extremities Extremities: abnormal (contracted) Extremity abnormal: edema - Abdominal General gastrointestinal: soft, non-tender, non-distended, normal bowel sounds, other (PEG tube in place) - Integumentary Integumentary: Present: clear, warm - Psychiatric Psychiatric: other (noncommunicative) - Neurologic Neurologic: other (noncommunicative) Results - Labs CBC & Chem 7: 11/12/17 05:29 11/13/17 05:24 Labs: Laboratory Last Values WBC 11.1 K/mm3 (4.5-11.0) H 11/12/17 05:29 RBC 3.34 M/mm3 (3.65-5.03) L 11/12/17 05:29 Hgb 9.3 gm/dl (11.8-15.2) L 11/12/17 05:29 Hct 28.8 % (35.5-45.6) L 11/12/17 05:29 MCV 86 fl (84-94) 11/12/17 05:29 MCH 28 pg (28-32) 11/12/17 05:29 MCHC 32 % (32-34) 11/12/17 05:29 RDW 14.9 % (13.2-15.2) 11/12/17 05:29 Plt Count 142 K/mm3 (140-440) 11/12/17 05:29 Lymph % (Auto) 9.2 % (13.4-35.0) L 11/12/17 05:29 [place] % (Auto) 8.6 % (0.0-7.3) H 11/12/17 05:29 Eos % (Auto) 0.8 % (0.0-4.3) 11/12/17 05:29 Baso % (Auto) 0.3 % (0.0-1.8) 11/12/17 05:29 Lymph # 1.0 K/mm3 (1.2-5.4) L 11/12/17 05:29 [place] # 1.0 K/mm3 (0.0-0.8) H 11/12/17 05:29 Eos # 0.1 K/mm3 (0.0-0.4) 11/12/17 05:29 Baso # 0.0 K/mm3 (0.0-0.1) 11/12/17 05:29 Add Manual Diff Complete 11/07/17 15:29 Total Counted 100 11/07/17 15:29 Seg Neutrophils % 81.1 % (40.0-70.0) H 11/12/17 05:29 Seg Neuts % (Manual) 88.0 % (40.0-70.0) H 11/07/17 15:29 Band Neutrophils % 1.0 % 11/07/17 15:29 Lymphocytes % (Manual) 6.0 % (13.4-35.0) L 11/07/17 15:29 Reactive Lymphs % (Man) 0 % 11/07/17 15:29 Monocytes % (Manual) 4.0 % (0.0-7.3) 11/07/17 15:29 Eosinophils % (Manual) 0 % (0.0-4.3) 11/07/17 15:29 Basophils % (Manual) 0 % (0.0-1.8) 11/07/17 15:29 Metamyelocytes % 0 % 11/07/17 15:29 Myelocytes % 1.0 % 11/07/17 15:29 Promyelocytes % 0 % 11/07/17 15:29 Blast Cells % 0 % 11/07/17 15:29 Nucleated RBC % 2.0 % (0.0-0.9) H 11/07/17 15:29 Seg Neutrophils # 9.0 K/mm3 (1.8-7.7) H 11/12/17 05:29 Seg Neutrophils # Man 11.5 K/mm3 (1.8-7.7) H 11/07/17 15:29 Band Neutrophils # 0.1 K/mm3 11/07/17 15:29 Lymphocytes # (Manual) 0.8 K/mm3 (1.2-5.4) L 11/07/17 15:29 Abs React Lymphs (Man) 0.0 K/mm3 11/07/17 15:29 Monocytes # (Manual) 0.5 K/mm3 (0.0-0.8) 11/07/17 15:29 Eosinophils # (Manual) 0.0 K/mm3 (0.0-0.4) 11/07/17 15:29 Basophils # (Manual) 0.0 K/mm3 (0.0-0.1) 11/07/17 15:29 Metamyelocytes # 0.0 K/mm3 11/07/17 15:29 Myelocytes # 0.1 K/mm3 11/07/17 15:29 Promyelocytes # 0.0 K/mm3 11/07/17 15:29 Blast Cells # 0.0 K/mm3 11/07/17 15:29 WBC Morphology Not Reportable 11/07/17 15:29 Hypersegmented Neuts Not Reportable 11/07/17 15:29 Hyposegmented Neuts Not Reportable 11/07/17 15:29 Hypogranular Neuts Not Reportable 11/07/17 15:29 Smudge Cells Not Reportable 11/07/17 15:29 Toxic Granulation Not Reportable 11/07/17 15:29 Toxic Vacuolation Not Reportable 11/07/17 15:29 Dohle Bodies Not Reportable 11/07/17 15:29 Pelger-Huet Anomaly Not Reportable 11/07/17 15:29 Karli Rods Not Reportable 11/07/17 15:29 Platelet Estimate Appears normal 11/07/17 15:29 Clumped Platelets Not Reportable 11/07/17 15:29 Plt Clumps, EDTA Not Reportable 11/07/17 15:29 Large Platelets Not Reportable 11/07/17 15:29 Giant Platelets Not Reportable 11/07/17 15:29 Platelet Satelliting Not Reportable 11/07/17 15:29 Plt Morphology Comment Not Reportable 11/07/17 15:29 RBC Morphology Not Reportable 11/07/17 15:29 Dimorphic RBCs Not Reportable 11/07/17 15:29 Polychromasia 1+ 11/07/17 15:29 Hypochromasia Not Reportable 11/07/17 15:29 Poikilocytosis Not Reportable 11/07/17 15:29 Anisocytosis 1+ 11/07/17 15:29 Microcytosis Not Reportable 11/07/17 15:29 Macrocytosis Not Reportable 11/07/17 15:29 Spherocytes Not Reportable 11/07/17 15:29 Pappenheimer Bodies Not Reportable 11/07/17 15:29 Sickle Cells Not Reportable 11/07/17 15:29 Target Cells Not Reportable 11/07/17 15:29 Tear Drop Cells Not Reportable 11/07/17 15:29 Ovalocytes Not Reportable 11/07/17 15:29 Helmet Cells Not Reportable 11/07/17 15:29 [place] Bodies Not Reportable 11/07/17 15:29 [place] Rings Not Reportable 11/07/17 15:29 [place] Cells Not Reportable 12/12/17 15:29 Bite Cells Not Reportable 11/07/17 15:29 Crenated Cell Not Reportable 11/07/17 15:29 Elliptocytes Not Reportable 11/07/17 15:29 Acanthocytes (Spur) Not Reportable 11/07/17 15:29 Rouleaux Not Reportable 11/07/17 15:29 Hemoglobin C Crystals Not Reportable 11/07/17 15:29 Schistocytes Not Reportable 11/07/17 15:29 Malaria parasites Not Reportable 11/07/17 15:29 Harshad Bodies Not Reportable 11/07/17 15:29 Hem Pathologist Commnt No 11/07/17 15:29 PT 17.4 Sec. (12.2-14.9) H 11/07/17 15:29 INR 1.35 (0.87-1.13) H 11/07/17 15:29 D-Dimer > 76393 ng/mlDDU (0-234) H 11/07/17 15:29 VBG pH 7.254 (7.320-7.420) L 11/07/17 15:29 Sodium 153 mmol/L (137-145) H 11/13/17 05:24 Potassium 3.9 mmol/L (3.6-5.0) 11/13/17 05:24 Chloride 119.5 mmol/L (98-107) H 11/13/17 05:24 Carbon Dioxide 24 mmol/L (22-30) 11/13/17 05:24 Anion Gap 13 mmol/L 11/13/17 05:24 BUN 27 mg/dL (9-20) H 11/13/17 05:24 Creatinine 0.9 mg/dL (0.8-1.5) 11/13/17 05:24 Estimated GFR > 60 ml/min 11/13/17 05:24 BUN/Creatinine Ratio 30 % 11/13/17 05:24 Glucose 307 mg/dL (75-100) H 11/13/17 05:24 POC Glucose 321 (70-105) H 11/13/17 13:39 Osmolality 355 Mosm/kg 11/12/17 09:13 Lactic Acid 6.60 mmol/L (0.7-2.0) H* 11/07/17 17:44 Uric Acid 3.9 mg/dL (3.5-7.6) 11/12/17 09:13 Calcium 7.8 mg/dL (8.4-10.2) L 11/13/17 05:24 Magnesium 1.90 mg/dL (1.7-2.3) 11/10/17 05:00 Total Bilirubin 0.40 mg/dL (0.1-1.2) 11/07/17 15:29 AST 39 units/L (5-40) 11/07/17 15:29 ALT 13 units/L (7-56) 11/07/17 15:29 Alkaline Phosphatase 125 units/L (35-129) 11/07/17 15:29 Total Creatine Kinase 900 units/L (55-170) H 11/08/17 23:41 Troponin T 0.037 ng/mL (0.00-0.029) H 11/07/17 15:29 Total Protein 7.3 g/dL (6.3-8.2) 11/07/17 15:29 Albumin 2.4 g/dL (3.9-5) L 11/07/17 15:29 Albumin/Globulin Ratio 0.5 % 11/07/17 15:29 Triglycerides 46 mg/dL (2-149) 11/07/17 15:29 Cholesterol 56 mg/dL (50-199) 11/07/17 15:29 LDL Cholesterol Direct 32 mg/dL (50-130) L 11/07/17 15:29 HDL Cholesterol 15 mg/dL (40-59) L 11/07/17 15:29 Cholesterol/HDL Ratio 3.73 % 11/07/17 15:29 Urine Color Yellow (Yellow) 11/07/17 20:10 Urine Turbidity Clear (Clear) 11/07/17 20:10 Urine pH 5.0 (5.0-7.0) 11/07/17 20:10 Ur Specific [place] 1.013 (1.003-1.030) 11/07/17 20:10 Urine Protein 30 mg/dl mg/dL (Negative) 11/07/17 20:10 Urine Glucose (UA) 50 mg/dL (Negative) 11/07/17 20:10 Urine Ketones Neg mg/dL (Negative) 11/07/17 20:10 Urine Blood Mod (Negative) 11/07/17 20:10 Urine Nitrite Neg (Negative) 11/07/17 20:10 Urine Bilirubin Neg (Negative) 11/07/17 20:10 Urine Urobilinogen < 2.0 mg/dL (<2.0) 11/07/17 20:10 Ur Leukocyte Esterase Lg (Negative) 11/07/17 20:10 Urine WBC (Auto) > 182.0 /HPF (0.0-6.0) H 11/07/17 20:10 Urine RBC (Auto) 93.0 /HPF (0.0-6.0) 11/07/17 20:10 U Epithel Cells (Auto) < 1.0 /HPF (0-13.0) 11/07/17 20:10 Urine Bacteria (Auto) 2+ /HPF (Negative) 11/07/17 20:10 Urine WBC Clumps 3+ /HPF 11/07/17 20:10 Ur Yeast w Hyphae 1+ /HPF 11/07/17 20:10 Urine Yeast (Budding) 3+ /HPF 11/07/17 20:10
[2017-11-13] MEDS: VANCOMYCIN/NS 1 GM/250 ML 1 GM/250 ML BAG IV SCH (20:40)
[2017-11-13] MEDS: AMBIEN PO SCH (22:22)
[2017-11-13] MEDS: ARICEPT PO SCH (22:22)
[2017-11-14] MEDS: ZOSYN/NS 4.5GM/100ML 4.5 GM/100 ML VIAL IV SCH ×3 (05:58→21:30)
[2017-11-14 06:04] LABS: Basophils % (Auto) 0.1 % (0.0-1.8); Eosinophils # (Auto) 0.3 K/mm3 (0.0-0.4); Eosinophils % (Auto) 1.8 % (0.0-4.3); Hematocrit 26.1 % (35.5-45.6); Hemoglobin 8.5 gm/dl (11.8-15.2); Lymphocytes # (Auto) 1.3 K/mm3 (1.2-5.4); Lymphocytes % (Auto) 8.2 % (13.4-35.0); Mean Corpuscular HGB Conc 33 % (32-34); Mean Corpuscular Hemoglobin 28 pg (28-32); Mean Corpuscular Volume 87 fl (84-94); Monocytes % (Auto) 6.4 % (0.0-7.3); Platelet Count 127 K/mm3 (140-440); Red Blood Count 3.02 M/mm3 (3.65-5.03); Red Cell Distribution Width 15.1 % (13.2-15.2)
[2017-11-14 06:32] LABS: BUN/Creatinine Ratio 27; Blood Urea Nitrogen 19 mg/dL (9-20); Calcium 7.9 mg/dL (8.4-10.2); Hemolysis Index 6
--- NOTE | 2017-11-14 09:10 | Progress Note ---
Assessment and Plan Assessment and plan: --Persistent fever; afebrile last 24 hours ,secondary to aspiration pneumonia continue current antibiotics abdominal CT, for any intra-abdominal pathology/fluid collection, --Sepsis; secondary to aspiration pneumonia, --left-sided pneumonia/ HCAP probably due to aspiration, patient already on Zosyn, add vancomycin, reduce PEG feeds, aspiration precautions, Follow cultures, consider ID evaluation if needed --Acute respiratory failure; oxygen titrated O2 sats more than 90%, BiPAP as needed, Nebulizers IV steroids and IV antibiotics -- Hypernatremia ; free water flushes, closely monitor, IV fluids --Lower extremity DVT; continue Eliquis per protocol, [Elevated D dimers ; negative PE, ,positive DVT] --Type 2 diabetes mellitus; uncontrolled, increase long-acting insulin dose, Accu-Chek sliding scale coverage and tube feeds --Hypertension; continue current antihypertensives --History of coronary artery disease status post CABG; resume home cardiac medications, cardiology evaluation if needed --Acute renal failure; resolved --Severe protein calorie malnutrition; supportive care, nutrition supplements --Full CODE STATUS --DC planning. Case management, discharge back to SNF once medically stable History Interval history: Patient seen and examined medical records reviewed Afibrile, no new events reported by the nursing staff Hospitalist Physical - Constitutional Vitals: Temp Pulse Resp BP Pulse Ox 98.5 F 98 H 20 99/60 96 11/14/17 08:50 11/14/17 08:50 11/14/17 08:50 11/14/17 08:50 11/14/17 05:29 General appearance: Present: no acute distress, well-nourished, other ( noncommunicative) - EENT Eyes: Present: PERRL - Neck Neck: Present: supple, normal ROM - Respiratory Respiratory effort: normal Respiratory: bilateral: diminished, rhonchi, negative: rales, wheezing - Cardiovascular Rhythm: regular Heart Sounds: Present: S1 & S2 - Extremities Extremities: no ischemia Extremity abnormal: edema - Abdominal General gastrointestinal: soft, non-tender, non-distended, normal bowel sounds, other (PEG tube in place) - Integumentary Integumentary: Present: clear, warm - Psychiatric Psychiatric: other (noncommunicative) - Neurologic Neurologic: other (noncommunicative) Results - Labs CBC & Chem 7: 11/14/17 05:29 11/14/17 05:29 Labs: Laboratory Last Values WBC 15.4 K/mm3 (4.5-11.0) H 11/14/17 05:29 RBC 3.02 M/mm3 (3.65-5.03) L 11/14/17 05:29 Hgb 8.5 gm/dl (11.8-15.2) L 11/14/17 05:29 Hct 26.1 % (35.5-45.6) L 11/14/17 05:29 MCV 87 fl (84-94) 11/14/17 05:29 MCH 28 pg (28-32) 11/14/17 05:29 MCHC 33 % (32-34) 11/14/17 05:29 RDW 15.1 % (13.2-15.2) 11/14/17 05:29 Plt Count 127 K/mm3 (140-440) L 11/14/17 05:29 Lymph % (Auto) 8.2 % (13.4-35.0) L 11/14/17 05:29 [place] % (Auto) 6.4 % (0.0-7.3) 11/14/17 05:29 Eos % (Auto) 1.8 % (0.0-4.3) 11/14/17 05:29 Baso % (Auto) 0.1 % (0.0-1.8) 11/14/17 05:29 Lymph # 1.3 K/mm3 (1.2-5.4) 11/14/17 05:29 [place] # 1.0 K/mm3 (0.0-0.8) H 11/14/17 05:29 Eos # 0.3 K/mm3 (0.0-0.4) 11/14/17 05:29 Baso # 0.0 K/mm3 (0.0-0.1) 11/14/17 05:29 Add Manual Diff Complete 11/07/17 15:29 Total Counted 100 11/07/17 15:29 Seg Neutrophils % 83.5 % (40.0-70.0) H 11/14/17 05:29 Seg Neuts % (Manual) 88.0 % (40.0-70.0) H 11/07/17 15:29 Band Neutrophils % 1.0 % 11/07/17 15:29 Lymphocytes % (Manual) 6.0 % (13.4-35.0) L 11/07/17 15:29 Reactive Lymphs % (Man) 0 % 11/07/17 15:29 Monocytes % (Manual) 4.0 % (0.0-7.3) 11/07/17 15:29 Eosinophils % (Manual) 0 % (0.0-4.3) 11/07/17 15:29 Basophils % (Manual) 0 % (0.0-1.8) 11/07/17 15:29 Metamyelocytes % 0 % 11/07/17 15:29 Myelocytes % 1.0 % 11/07/17 15:29 Promyelocytes % 0 % 11/07/17 15:29 Blast Cells % 0 % 11/07/17 15:29 Nucleated RBC % 2.0 % (0.0-0.9) H 11/07/17 15:29 Seg Neutrophils # 12.8 K/mm3 (1.8-7.7) H 11/14/17 05:29 Seg Neutrophils # Man 11.5 K/mm3 (1.8-7.7) H 11/07/17 15:29 Band Neutrophils # 0.1 K/mm3 11/07/17 15:29 Lymphocytes # (Manual) 0.8 K/mm3 (1.2-5.4) L 11/07/17 15:29 Abs React Lymphs (Man) 0.0 K/mm3 11/07/17 15:29 Monocytes # (Manual) 0.5 K/mm3 (0.0-0.8) 11/07/17 15:29 Eosinophils # (Manual) 0.0 K/mm3 (0.0-0.4) 11/07/17 15:29 Basophils # (Manual) 0.0 K/mm3 (0.0-0.1) 11/07/17 15:29 Metamyelocytes # 0.0 K/mm3 11/07/17 15:29 Myelocytes # 0.1 K/mm3 11/07/17 15:29 Promyelocytes # 0.0 K/mm3 11/07/17 15:29 Blast Cells # 0.0 K/mm3 11/07/17 15:29 WBC Morphology Not Reportable 11/07/17 15:29 Hypersegmented Neuts Not Reportable 11/07/17 15:29 Hyposegmented Neuts Not Reportable 11/07/17 15:29 Hypogranular Neuts Not Reportable 11/07/17 15:29 Smudge Cells Not Reportable 11/07/17 15:29 Toxic Granulation Not Reportable 11/07/17 15:29 Toxic Vacuolation Not Reportable 11/07/17 15:29 Dohle Bodies Not Reportable 11/07/17 15:29 Pelger-Huet Anomaly Not Reportable 11/07/17 15:29 Karli Rods Not Reportable 11/07/17 15:29 Platelet Estimate Appears normal 11/07/17 15:29 Clumped Platelets Not Reportable 11/07/17 15:29 Plt Clumps, EDTA Not Reportable 11/07/17 15:29 Large Platelets Not Reportable 11/07/17 15:29 Giant Platelets Not Reportable 11/07/17 15:29 Platelet Satelliting Not Reportable 11/07/17 15:29 Plt Morphology Comment Not Reportable 11/07/17 15:29 RBC Morphology Not Reportable 11/07/17 15:29 Dimorphic RBCs Not Reportable 11/07/17 15:29 Polychromasia 1+ 11/07/17 15:29 Hypochromasia Not Reportable 11/07/17 15:29 Poikilocytosis Not Reportable 11/07/17 15:29 Anisocytosis 1+ 11/07/17 15:29 Microcytosis Not Reportable 11/07/17 15:29 Macrocytosis Not Reportable 11/07/17 15:29 Spherocytes Not Reportable 11/07/17 15:29 Pappenheimer Bodies Not Reportable 11/07/17 15:29 Sickle Cells Not Reportable 11/07/17 15:29 Target Cells Not Reportable 11/07/17 15:29 Tear Drop Cells Not Reportable 11/07/17 15:29 Ovalocytes Not Reportable 11/07/17 15:29 Helmet Cells Not Reportable 11/07/17 15:29 [place] Bodies Not Reportable 11/07/17 15:29 [place] Rings Not Reportable 11/07/17 15:29 [place] Cells Not Reportable 11/07/17 15:29 Bite Cells Not Reportable 11/07/17 15:29 Crenated Cell Not Reportable 11/07/17 15:29 Elliptocytes Not Reportable 11/07/17 15:29 Acanthocytes (Spur) Not Reportable 11/07/17 15:29 Rouleaux Not Reportable 11/07/17 15:29 Hemoglobin C Crystals Not Reportable 11/07/17 15:29 Schistocytes Not Reportable 11/07/17 15:29 Malaria parasites Not Reportable 11/07/17 15:29 Harshad Bodies Not Reportable 11/07/17 15:29 Hem Pathologist Commnt No 11/07/17 15:29 PT 17.4 Sec. (12.2-14.9) H 11/07/17 15:29 INR 1.35 (0.87-1.13) H 11/07/17 15:29 D-Dimer > 10797 ng/mlDDU (0-234) H 11/07/17 15:29 VBG pH 7.254 (7.320-7.420) L 11/07/17 15:29 Sodium 154 mmol/L (137-145) H 11/14/17 05:29 Potassium 3.8 mmol/L (3.6-5.0) 11/14/17 05:29 Chloride 117.4 mmol/L (98-107) H 11/14/17 05:29 Carbon Dioxide 23 mmol/L (22-30) 11/14/17 05:29 Anion Gap 17 mmol/L 11/14/17 05:29 BUN 19 mg/dL (9-20) 11/14/17 05:29 Creatinine 0.7 mg/dL (0.8-1.5) L 11/14/17 05:29 Estimated GFR > 60 ml/min 11/14/17 05:29 BUN/Creatinine Ratio 27 % 11/14/17 05:29 Glucose 233 mg/dL (75-100) H 11/14/17 05:29 POC Glucose 239 (70-105) H 11/14/17 07:14 Osmolality 355 Mosm/kg 11/12/17 09:13 Lactic Acid 6.60 mmol/L (0.7-2.0) H* 11/07/17 17:44 Uric Acid 3.9 mg/dL (3.5-7.6) 11/12/17 09:13 Calcium 7.9 mg/dL (8.4-10.2) L 11/14/17 05:29 Magnesium 1.90 mg/dL (1.7-2.3) 11/10/17 05:00 Total Bilirubin 0.40 mg/dL (0.1-1.2) 11/07/17 15:29 AST 39 units/L (5-40) 11/07/17 15:29 ALT 13 units/L (7-56) 11/07/17 15:29 Alkaline Phosphatase 125 units/L (35-129) 11/07/17 15:29 Total Creatine Kinase 900 units/L (55-170) H 11/08/17 23:41 Troponin T 0.037 ng/mL (0.00-0.029) H 11/07/17 15:29 Total Protein 7.3 g/dL (6.3-8.2) 11/07/17 15:29 Albumin 2.4 g/dL (3.9-5) L 11/07/17 15:29 Albumin/Globulin Ratio 0.5 % 11/07/17 15:29 Triglycerides 46 mg/dL (2-149) 11/07/17 15:29 Cholesterol 56 mg/dL (50-199) 11/07/17 15:29 LDL Cholesterol Direct 32 mg/dL (50-130) L 11/07/17 15:29 HDL Cholesterol 15 mg/dL (40-59) L 11/07/17 15:29 Cholesterol/HDL Ratio 3.73 % 11/07/17 15:29 Urine Color Yellow (Yellow) 11/07/17 20:10 Urine Turbidity Clear (Clear) 11/07/17 20:10 Urine pH 5.0 (5.0-7.0) 11/07/17 20:10 Ur Specific [place] 1.013 (1.003-1.030) 11/07/17 20:10 Urine Protein 30 mg/dl mg/dL (Negative) 11/07/17 20:10 Urine Glucose (UA) 50 mg/dL (Negative) 11/07/17 20:10 Urine Ketones Neg mg/dL (Negative) 11/07/17 20:10 Urine Blood Mod (Negative) 11/07/17 20:10 Urine Nitrite Neg (Negative) 11/07/17 20:10 Urine Bilirubin Neg (Negative) 11/07/17 20:10 Urine Urobilinogen < 2.0 mg/dL (<2.0) 11/07/17 20:10 Ur Leukocyte Esterase Lg (Negative) 11/07/17 20:10 Urine WBC (Auto) > 182.0 /HPF (0.0-6.0) H 11/07/17 20:10 Urine RBC (Auto) 93.0 /HPF (0.0-6.0) 11/07/17 20:10 U Epithel Cells (Auto) < 1.0 /HPF (0-13.0) 11/07/17 20:10 Urine Bacteria (Auto) 2+ /HPF (Negative) 11/07/17 20:10 Urine WBC Clumps 3+ /HPF 11/07/17 20:10 Ur Yeast w Hyphae 1+ /HPF 11/07/17 20:10 Urine Yeast (Budding) 3+ /HPF 11/07/17 20:10
[2017-11-14] MEDS: DUONEB *Not for PRN Use IH SCH ×3 (09:24→20:11)
[2017-11-14] MEDS: PLAVIX PO SCH (10:33)
[2017-11-14] MEDS: SINEMET PO SCH ×4 (10:33→21:31)
[2017-11-14] MEDS: ELIQUIS PO SCH ×2 (10:33→21:30)
[2017-11-14] MEDS: PEPCID PO SCH ×2 (10:34→21:31)
[2017-11-14] MEDS: NEURONTIN PO SCH ×3 (10:41→21:31)
--- NOTE | 2017-11-14 15:29 | Progress Note ---
Assessment and Plan impression * Acute kidney injury * Hypernatremia * Pneumonia * Hypertension * Diabetes * coronary artery disease Recommendations * Patient renal function has normalized * Serum sodium remains elevated. Shall change his IV . Fluid to D5 W * Hypokalemia has been corrected * Shall also check a urine osmolality * Avoid nephrotoxins Subjective Date of service: 11/14/17 Interval history: patient is currently lethargic. On 35% Ventimask. IV fluids infusing Objective - Vital Signs Vital signs: Vital Signs - 12hr 11/14/17 11/14/17 11/14/17 05:14 05:29 08:50 Temperature 99.8 F H 98.5 F Pulse Rate 102 H 97 H 98 H Pulse Rate [ Anterior Bilateral Throughout] Pulse Rate [ Throughout] Respiratory 18 20 Rate Respiratory Rate [Anterior Bilateral Throughout] Respiratory Rate [ Throughout] Blood Pressure 107/57 Blood Pressure 99/60 [Left] O2 Sat by Pulse 96 Oximetry 11/14/17 11/14/17 11/14/17 09:25 09:26 13:02 Temperature 99.0 F Pulse Rate 100 H Pulse Rate [ 100 H Anterior Bilateral Throughout] Pulse Rate [ 28 L Throughout] Respiratory 20 Rate Respiratory 34 H Rate [Anterior Bilateral Throughout] Respiratory 105 H Rate [ Throughout] Blood Pressure Blood Pressure 101/54 [Left] O2 Sat by Pulse 96 97 Oximetry 11/14/17 13:59 Temperature Pulse Rate Pulse Rate [ 104 H Anterior Bilateral Throughout] Pulse Rate [ 107 H Throughout] Respiratory Rate Respiratory 22 Rate [Anterior Bilateral Throughout] Respiratory 24 Rate [ Throughout] Blood Pressure Blood Pressure [Left] O2 Sat by Pulse Oximetry - General Appearance General appearance: well-developed, well-nourished, appears stated age, other ( Ventimask in place) Neck: no JVD, no thyromegaly Respiratory: Present: Clear to Ascultation Cardiology: regular, normal heart rate Gastrointestinal: normoactive bowel sounds, other (PEG tube in place) Integumentary: other (no edema) - Lab 11/14/17 05:29 11/14/17 05:29 Most recent lab results Calcium 7.9 mg/dL (8.4-10.2) L 11/14/17 05:29 Magnesium 1.90 mg/dL (1.7-2.3) 11/10/17 05:00
[2017-11-14] MEDS ORDERED: D5W 1,000 ML IV SCH (19:00)
[2017-11-14] MEDS: VANCOMYCIN/NS 1 GM/250 ML 1 GM/250 ML BAG IV SCH (21:23)
[2017-11-14] MEDS: ARICEPT PO SCH (21:31)
[2017-11-15] MEDS: AMBIEN PO SCH ×2 (00:54→22:04)
[2017-11-15] MEDS: ZOSYN/NS 4.5GM/100ML 4.5 GM/100 ML VIAL IV SCH (06:16)
[2017-11-15] MEDS: NEURONTIN PO SCH ×3 (06:16→22:55)
[2017-11-15 06:40] LABS: BUN/Creatinine Ratio 30; Blood Urea Nitrogen 21 mg/dL (9-20); Hemolysis Index 39
[2017-11-15] MEDS: DUONEB *Not for PRN Use IH SCH ×3 (07:45→19:31)
[2017-11-15] MEDS: PEPCID PO SCH ×2 (12:22→22:55)
[2017-11-15] MEDS: ELIQUIS PO SCH ×2 (12:22→22:55)
[2017-11-15] MEDS: SINEMET PO SCH ×4 (12:22→22:55)
[2017-11-15] MEDS: PLAVIX PO SCH (12:22)
--- NOTE | 2017-11-15 13:56 | Progress Note ---
Assessment and Plan impression * Acute kidney injury * Hypernatremia * Pneumonia * Hypertension * Diabetes * coronary artery disease Recommendations * Patient renal function has normalized * Serum sodium is improving. * Continue free water flushes 250 mL every 4 hours via his feeding tube * Hypokalemia has been corrected * Shall also check a urine osmolality * Avoid nephrotoxins Subjective Date of service: 11/15/17 Interval history: patient is currently lethargic. He remains on 35% Ventimask. Objective - Vital Signs Vital signs: Vital Signs - 12hr 11/15/17 11/15/17 11/15/17 04:38 07:45 07:48 Temperature 99.1 F Pulse Rate 91 H Pulse Rate [ 89 Throughout] Respiratory 24 Rate Respiratory 20 Rate [ Throughout] Blood Pressure 110/54 O2 Sat by Pulse 96 94 Oximetry 11/15/17 11/15/17 07:55 09:20 Temperature 98.7 F Pulse Rate 94 H Pulse Rate [ 90 Throughout] Respiratory 22 Rate Respiratory 20 Rate [ Throughout] Blood Pressure 94/59 O2 Sat by Pulse 97 Oximetry - General Appearance General appearance: chronically ill, frail EENT: PERRL, mucous membranes moist Neck: no JVD, no thyromegaly Respiratory: Present: Clear to Ascultation Cardiology: regular, normal heart rate Gastrointestinal: normal, normoactive bowel sounds, other (PEG tube in place) - Lab 11/14/17 05:29 11/15/17 05:57 Most recent lab results Calcium 8.0 mg/dL (8.4-10.2) L 11/15/17 05:57 Magnesium 1.90 mg/dL (1.7-2.3) 11/10/17 05:00
[2017-11-15] MEDS ORDERED: NACL ONE (14:40)
--- NOTE | 2017-11-15 17:03 | Cat Scan Report ---
FINAL REPORT PROCEDURE: CT ABDOMEN PELVIS W CON TECHNIQUE: Computerized axial tomography of the abdomen and pelvis was performed after the IV injection of iodinated nonionic contrast. HISTORY: persistent fever/intra-abdominal pathology COMPARISON: No prior studies are available for comparison. FINDINGS: Visualized lower thorax: Patchy airspace disease with consolidative features in the lower lung zones right greater than left. Motion artifact. Mixed interstitial alveolar opacities. Streaky infiltrate in the right middle lobe. Liver: Diffuse fatty infiltration of liver Spleen: Lobular spleen.. Gallbladder and biliary system: Distended gallbladder with indeterminate evaluation common bile duct due to motion artifact. Pancreas: Normal. Adrenals: Normal. Kidneys: Large lesion low-attenuation upper pole right kidney posteriorly measuring 5.9 x 4.6 centimeters. GI tract: No oral contrast. Gastric tube in the fundus of the stomach. Moderate stool large bowel. Scattered diverticulosis. Rectal wall thickening moderate stool throughout the large bowel Lymph nodes and mesentery: Normal. Vasculature: Atherosclerosis with moderate narrowing celiac and [id number] narrowing SMA Bladder: Distended bladder with James balloon catheter Reproductive organs: Supra vesicular pump related device suspected.. Enlarged heterogeneous prostate gland measures 4 x 7 centimeters Peritoneum: No free fluid. Musculoskeletal structures: General sclerotic and patchy appearance of the bones. Rule-out metastatic disease. Defer to nuclear medicine bone scan. Postsurgical changes lumbar spine L4 through S1. Left hip prosthesis.. Other: Pump device in the right upper scrotal region with penile prosthesis IMPRESSION: Patchy airspace infiltrate with consolidative features in the lower lung zones right greater than left Distended gallbladder Probable large cyst right kidney enlarged prostate gland Indeterminate evaluation of bones Followup advised as warranted
--- NOTE | 2017-11-15 18:38 | Progress Note ---
Assessment and Plan Assessment and plan: --Persistent fever; afebrile last 48 hours,secondary to aspiration pneumonia on vancomycin ,Zosyn day [address], no acute abnormality, follow cultures --Sepsis; secondary to aspiration pneumonia, --left-sided pneumonia/ HCAP probably due to aspiration, patient already on Zosyn, add vancomycin, reduce PEG feeds, aspiration precautions, Follow cultures, consider ID evaluation if needed --Acute respiratory failure; oxygen titrated O2 sats more than 90%, BiPAP as needed, Nebulizers IV steroids and IV antibiotics -- Hypernatremia ; free water flushes, closely monitor, IV fluids --Lower extremity DVT; continue Eliquis per protocol, --Type 2 diabetes mellitus; moderate control, Accu-Chek sliding scale coverage to feeding and insulin, --Hypertension; continue current antihypertensives --History of coronary artery disease status post CABG; stable on medications --Acute renal failure; resolved --Severe protein calorie malnutrition; supportive care, nutrition supplements --Full CODE STATUS --DC planning. Case management, discharge back to SNF 1-2 days if stable History Interval history: Patient seen and evaluated medical records reviewed No new events reported by the nursing staff CT abdomen and pelvis no acute abnormalities Patchy infiltrates, secondary to aspiration pneumonia On Vanco and Zosyn day 5 Patient is comfortable, afebrile, noncommunicative Hospitalist Physical - Constitutional Vitals: Temp Pulse Resp BP Pulse Ox 98.7 F 105 H 32 H 94/59 97 11/15/17 09:20 11/15/17 13:56 11/15/17 13:56 11/15/17 09:20 11/15/17 09:20 General appearance: Present: no acute distress, well-nourished, other ( noncommunicative) - EENT Eyes: Present: PERRL, EOM intact - Neck Neck: Present: supple, normal ROM - Respiratory Respiratory effort: normal Respiratory: bilateral: diminished, rhonchi, negative: rales, wheezing - Cardiovascular Rhythm: regular Heart Sounds: Present: S1 & S2 - Extremities Extremities: no ischemia Extremity abnormal: edema - Abdominal General gastrointestinal: soft, non-tender, non-distended, normal bowel sounds, other (PEG tube in place.) - Integumentary Integumentary: Present: clear, warm - Psychiatric Psychiatric: other (noncommunicative) - Neurologic Neurologic: other (noncommunicative) Results - Labs CBC & Chem 7: 11/14/17 05:29 11/15/17 05:57 Labs: Laboratory Last Values WBC 15.4 K/mm3 (4.5-11.0) H 11/14/17 05:29 RBC 3.02 M/mm3 (3.65-5.03) L 11/14/17 05:29 Hgb 8.5 gm/dl (11.8-15.2) L 11/14/17 05:29 Hct 26.1 % (35.5-45.6) L 11/14/17 05:29 MCV 87 fl (84-94) 11/14/17 05:29 MCH 28 pg (28-32) 11/14/17 05:29 MCHC 33 % (32-34) 11/14/17 05:29 RDW 15.1 % (13.2-15.2) 11/14/17 05:29 Plt Count 127 K/mm3 (140-440) L 11/14/17 05:29 Lymph % (Auto) 8.2 % (13.4-35.0) L 11/14/17 05:29 [place] % (Auto) 6.4 % (0.0-7.3) 11/14/17 05:29 Eos % (Auto) 1.8 % (0.0-4.3) 11/14/17 05:29 Baso % (Auto) 0.1 % (0.0-1.8) 11/14/17 05:29 Lymph # 1.3 K/mm3 (1.2-5.4) 11/14/17 05:29 [place] # 1.0 K/mm3 (0.0-0.8) H 11/14/17 05:29 Eos # 0.3 K/mm3 (0.0-0.4) 11/14/17 05:29 Baso # 0.0 K/mm3 (0.0-0.1) 11/14/17 05:29 Add Manual Diff Complete 11/07/17 15:29 Total Counted 100 11/07/17 15:29 Seg Neutrophils % 83.5 % (40.0-70.0) H 11/14/17 05:29 Seg Neuts % (Manual) 88.0 % (40.0-70.0) H 11/07/17 15:29 Band Neutrophils % 1.0 % 11/07/17 15:29 Lymphocytes % (Manual) 6.0 % (13.4-35.0) L 11/07/17 15:29 Reactive Lymphs % (Man) 0 % 11/07/17 15:29 Monocytes % (Manual) 4.0 % (0.0-7.3) 11/07/17 15:29 Eosinophils % (Manual) 0 % (0.0-4.3) 11/07/17 15:29 Basophils % (Manual) 0 % (0.0-1.8) 11/07/17 15:29 Metamyelocytes % 0 % 11/07/17 15:29 Myelocytes % 1.0 % 11/07/17 15:29 Promyelocytes % 0 % 11/07/17 15:29 Blast Cells % 0 % 11/07/17 15:29 Nucleated RBC % 2.0 % (0.0-0.9) H 11/07/17 15:29 Seg Neutrophils # 12.8 K/mm3 (1.8-7.7) H 11/14/17 05:29 Seg Neutrophils # Man 11.5 K/mm3 (1.8-7.7) H 11/07/17 15:29 Band Neutrophils # 0.1 K/mm3 11/07/17 15:29 Lymphocytes # (Manual) 0.8 K/mm3 (1.2-5.4) L 11/07/17 15:29 Abs React Lymphs (Man) 0.0 K/mm3 11/07/17 15:29 Monocytes # (Manual) 0.5 K/mm3 (0.0-0.8) 11/07/17 15:29 Eosinophils # (Manual) 0.0 K/mm3 (0.0-0.4) 11/07/17 15:29 Basophils # (Manual) 0.0 K/mm3 (0.0-0.1) 11/07/17 15:29 Metamyelocytes # 0.0 K/mm3 11/07/17 15:29 Myelocytes # 0.1 K/mm3 11/07/17 15:29 Promyelocytes # 0.0 K/mm3 11/07/17 15:29 Blast Cells # 0.0 K/mm3 11/07/17 15:29 WBC Morphology Not Reportable 11/07/17 15:29 Hypersegmented Neuts Not Reportable 11/07/17 15:29 Hyposegmented Neuts Not Reportable 11/07/17 15:29 Hypogranular Neuts Not Reportable 11/07/17 15:29 Smudge Cells Not Reportable 11/07/17 15:29 Toxic Granulation Not Reportable 11/07/17 15:29 Toxic Vacuolation Not Reportable 11/07/17 15:29 Dohle Bodies Not Reportable 11/07/17 15:29 Pelger-Huet Anomaly Not Reportable 11/07/17 15:29 Karli Rods Not Reportable 11/07/17 15:29 Platelet Estimate Appears normal 11/07/17 15:29 Clumped Platelets Not Reportable 11/07/17 15:29 Plt Clumps, EDTA Not Reportable 11/07/17 15:29 Large Platelets Not Reportable 11/07/17 15:29 Giant Platelets Not Reportable 11/07/17 15:29 Platelet Satelliting Not Reportable 11/07/17 15:29 Plt Morphology Comment Not Reportable 11/07/17 15:29 RBC Morphology Not Reportable 11/07/17 15:29 Dimorphic RBCs Not Reportable 11/07/17 15:29 Polychromasia 1+ 11/07/17 15:29 Hypochromasia Not Reportable 11/07/17 15:29 Poikilocytosis Not Reportable 11/07/17 15:29 Anisocytosis 1+ 11/07/17 15:29 Microcytosis Not Reportable 11/07/17 15:29 Macrocytosis Not Reportable 11/07/17 15:29 Spherocytes Not Reportable 11/07/17 15:29 Pappenheimer Bodies Not Reportable 11/07/17 15:29 Sickle Cells Not Reportable 11/07/17 15:29 Target Cells Not Reportable 11/07/17 15:29 Tear Drop Cells Not Reportable 11/07/17 15:29 Ovalocytes Not Reportable 11/07/17 15:29 Helmet Cells Not Reportable 11/07/17 15:29 [place] Bodies Not Reportable 11/07/17 15:29 [place] Rings Not Reportable 11/07/17 15:29 [place] Cells Not Reportable 11/07/17 15:29 Bite Cells Not Reportable 11/07/17 15:29 Crenated Cell Not Reportable 11/07/17 15:29 Elliptocytes Not Reportable 11/07/17 15:29 Acanthocytes (Spur) Not Reportable 11/07/17 15:29 Rouleaux Not Reportable 11/07/17 15:29 Hemoglobin C Crystals Not Reportable 11/07/17 15:29 Schistocytes Not Reportable 11/07/17 15:29 Malaria parasites Not Reportable 11/07/17 15:29 Harshad Bodies Not Reportable 11/07/17 15:29 Hem Pathologist Commnt No 11/07/17 15:29 PT 17.4 Sec. (12.2-14.9) H 11/07/17 15:29 INR 1.35 (0.87-1.13) H 11/07/17 15:29 D-Dimer > 62705 ng/mlDDU (0-234) H 11/07/17 15:29 VBG pH 7.254 (7.320-7.420) L 11/07/17 15:29 Sodium 150 mmol/L (137-145) H 11/15/17 05:57 Potassium 3.7 mmol/L (3.6-5.0) 11/15/17 05:57 Chloride 113.6 mmol/L (98-107) H 11/15/17 05:57 Carbon Dioxide 24 mmol/L (22-30) 11/15/17 05:57 Anion Gap 16 mmol/L 11/15/17 05:57 BUN 21 mg/dL (9-20) H 11/15/17 05:57 Creatinine 0.7 mg/dL (0.8-1.5) L 11/15/17 05:57 Estimated GFR > 60 ml/min 11/15/17 05:57 BUN/Creatinine Ratio 30 % 11/15/17 05:57 Glucose 230 mg/dL (75-100) H 11/15/17 05:57 POC Glucose 216 (70-105) H 11/15/17 12:59 Osmolality 355 Mosm/kg 11/12/17 09:13 Lactic Acid 6.60 mmol/L (0.7-2.0) H* 11/07/17 17:44 Uric Acid 3.9 mg/dL (3.5-7.6) 11/12/17 09:13 Calcium 8.0 mg/dL (8.4-10.2) L 11/15/17 05:57 Magnesium 1.90 mg/dL (1.7-2.3) 11/10/17 05:00 Total Bilirubin 0.40 mg/dL (0.1-1.2) 11/07/17 15:29 AST 39 units/L (5-40) 11/07/17 15:29 ALT 13 units/L (7-56) 11/07/17 15:29 Alkaline Phosphatase 125 units/L (35-129) 11/07/17 15:29 Total Creatine Kinase 900 units/L (55-170) H 11/08/17 23:41 Troponin T 0.037 ng/mL (0.00-0.029) H 11/07/17 15:29 Total Protein 7.3 g/dL (6.3-8.2) 11/07/17 15:29 Albumin 2.4 g/dL (3.9-5) L 11/07/17 15:29 Albumin/Globulin Ratio 0.5 % 11/07/17 15:29 Triglycerides 46 mg/dL (2-149) 11/07/17 15:29 Cholesterol 56 mg/dL (50-199) 11/07/17 15:29 LDL Cholesterol Direct 32 mg/dL (50-130) L 11/07/17 15:29 HDL Cholesterol 15 mg/dL (40-59) L 11/07/17 15:29 Cholesterol/HDL Ratio 3.73 % 11/07/17 15:29 Urine Color Yellow (Yellow) 11/07/17 20:10 Urine Turbidity Clear (Clear) 11/07/17 20:10 Urine pH 5.0 (5.0-7.0) 11/07/17 20:10 Ur Specific [place] 1.013 (1.003-1.030) 11/07/17 20:10 Urine Protein 30 mg/dl mg/dL (Negative) 11/07/17 20:10 Urine Glucose (UA) 50 mg/dL (Negative) 11/07/17 20:10 Urine Ketones Neg mg/dL (Negative) 11/07/17 20:10 Urine Blood Mod (Negative) 11/07/17 20:10 Urine Nitrite Neg (Negative) 11/07/17 20:10 Urine Bilirubin Neg (Negative) 11/07/17 20:10 Urine Urobilinogen < 2.0 mg/dL (<2.0) 11/07/17 20:10 Ur Leukocyte Esterase Lg (Negative) 11/07/17 20:10 Urine WBC (Auto) > 182.0 /HPF (0.0-6.0) H 11/07/17 20:10 Urine RBC (Auto) 93.0 /HPF (0.0-6.0) 11/07/17 20:10 U Epithel Cells (Auto) < 1.0 /HPF (0-13.0) 11/07/17 20:10 Urine Bacteria (Auto) 2+ /HPF (Negative) 11/07/17 20:10 Urine WBC Clumps 3+ /HPF 11/07/17 20:10 Ur Yeast w Hyphae 1+ /HPF 11/07/17 20:10 Urine Yeast (Budding) 3+ /HPF 11/07/17 20:10
[2017-11-15] MEDS: VANCOMYCIN/NS 1 GM/250 ML 1 GM/250 ML BAG IV SCH (21:45)
[2017-11-15] MEDS: ARICEPT PO SCH (22:55)
[2017-11-16 06:13] LABS: Hematocrit 25.6 % (35.5-45.6); Hemoglobin 8.1 gm/dl (11.8-15.2); Mean Corpuscular HGB Conc 32 % (32-34); Mean Corpuscular Hemoglobin 28 pg (28-32); Mean Corpuscular Volume 87 fl (84-94); Platelet Count 173 K/mm3 (140-440); Red Blood Count 2.93 M/mm3 (3.65-5.03); Red Cell Distribution Width 15.6 % (13.2-15.2)
[2017-11-16 06:16] LABS: BUN/Creatinine Ratio 27; Blood Urea Nitrogen 27 mg/dL (9-20); Calcium 7.8 mg/dL (8.4-10.2); Hemolysis Index 5
[2017-11-16 07:07] LABS: Band Neutrophils # (Manual) 1.8 K/mm3; Basophils % (Manual) 0 % (0.0-1.8); Eosinophils % (Manual) 0 % (0.0-4.3); Total Cells Counted 100
[2017-11-16 07:08] LABS: Anisocytosis 1+
[2017-11-16] MEDS: NEURONTIN PO SCH ×3 (07:10→22:36)
[2017-11-16] MEDS: DUONEB *Not for PRN Use IH SCH ×3 (08:13→21:27)
[2017-11-16] MEDS: PEPCID PO SCH ×2 (09:47→22:36)
[2017-11-16] MEDS: ELIQUIS PO SCH ×2 (09:47→22:36)
[2017-11-16] MEDS: PLAVIX PO SCH (09:47)
[2017-11-16] MEDS: SINEMET PO SCH ×4 (09:47→22:38)
[2017-11-16] MEDS: VANCOMYCIN/NS 1 GM/250 ML 1 GM/250 ML BAG IV SCH ×2 (11:37→22:50)
--- NOTE | 2017-11-16 13:40 | Progress Note ---
Assessment and Plan impression * Acute kidney injury * Hypernatremia * Pneumonia * Hypertension * Diabetes * coronary artery disease Recommendations * Patient renal function remained stable * His urine output seems to be somewhat lower. Shall hydrate him gently * Serum sodium is improving. * Continue free water flushes 250 mL every 4 hours via his feeding tube * Hypokalemia has been corrected * Awaiting results of urine osmolality * Avoid nephrotoxins Subjective Date of service: 11/16/17 Interval history: Patient appears comfortable. He remains on a Ventimask with 35% FiO2. Nonverbal. Objective - Vital Signs Vital signs: Vital Signs - 12hr 11/16/17 11/16/17 11/16/17 04:41 07:14 10:02 Temperature 97.6 F 97.6 F Pulse Rate 91 H 96 H Respiratory 22 22 22 Rate Blood Pressure 103/58 95/47 O2 Sat by Pulse 96 97 98 Oximetry 11/16/17 11:13 Temperature 97.8 F Pulse Rate 98 H Respiratory 20 Rate Blood Pressure 104/51 O2 Sat by Pulse 96 Oximetry - General Appearance General appearance: well-developed, well-nourished, appears stated age Neck: no JVD Respiratory: Present: Ronchi (few scattered rhonchi) Cardiology: regular, normal heart rate Gastrointestinal: normal, normoactive bowel sounds, other (PEG tube in place) Integumentary: other (no edema) - Lab 11/16/17 05:13 11/16/17 05:13 Most recent lab results Calcium 7.8 mg/dL (8.4-10.2) L 11/16/17 05:13 Magnesium 1.90 mg/dL (1.7-2.3) 11/16/17 05:13
[2017-11-16] MEDS ORDERED: SIMPLE SYRUP FEEDTUBE PRN ×2 (15:30)
[2017-11-16] MEDS ORDERED: SODIUM BICARBONATE FEEDTUBE PRN (15:30)
[2017-11-16] MEDS ORDERED: PANCREAZE DR 10,500 UNIT FEEDTUBE PRN (15:30)
[2017-11-16] MEDS ORDERED: NACL 0.45% 1000 ML 1,000 ML IV SCH (17:00)
--- NOTE | 2017-11-16 18:10 | Progress Note ---
Assessment and Plan Assessment and Plan Assessment and plan: --Persistent fever; afebrile last 48 hours,secondary to aspiration pneumonia on vancomycin ,Zosyn day [address], no acute abnormality, follow cultures --Sepsis; secondary to aspiration pneumonia, --left-sided pneumonia/ HCAP probably due to aspiration, patient already on Zosyn, add vancomycin, reduce PEG feeds, aspiration precautions, Follow cultures, consider ID evaluation if needed --Acute respiratory failure; oxygen titrated O2 sats more than 90%, BiPAP as needed, Nebulizers IV steroids and IV antibiotics -- Hypernatremia ; free water flushes, closely monitor, IV fluids --Lower extremity DVT; continue Eliquis per protocol, --Type 2 diabetes mellitus; moderate control, Accu-Chek sliding scale coverage to feeding and insulin, --Hypertension; continue current antihypertensives --History of coronary artery disease status post CABG; stable on medications --Acute renal failure; resolved --Severe protein calorie malnutrition; supportive care, nutrition supplements --Full CODE STATUS --DC planning. Case management, discharge back to SNF 1-2 days if stable Subjective Date of service: 11/16/17 Objective - Constitutional Vitals: Vital Signs - 12hr 11/16/17 11/16/17 11/16/17 07:14 08:13 10:02 Temperature 97.6 F Pulse Rate 96 H Pulse Rate [ 99 H Anterior Bilateral Throughout] Respiratory 22 22 Rate Respiratory 24 Rate [Anterior Bilateral Throughout] Blood Pressure 95/47 O2 Sat by Pulse 97 98 Oximetry 11/16/17 11/16/17 11/16/17 11:13 13:24 14:44 Temperature 97.8 F Pulse Rate 98 H 97 H Pulse Rate [ 97 H Anterior Bilateral Throughout] Respiratory 20 Rate Respiratory 26 H Rate [Anterior Bilateral Throughout] Blood Pressure 104/51 O2 Sat by Pulse 96 Oximetry General appearance: Present: no acute distress, well-nourished - EENT Eyes: PERRL, EOM intact ENT: hearing intact, clear oral mucosa Ears: bilateral: normal - Neck Neck: supple, normal ROM - Respiratory Respiratory effort: normal Respiratory: bilateral: CTA - Breasts Breasts: normal - Cardiovascular Rhythm: regular Heart Sounds: Present: S1 & S2. Absent: gallop, rub Extremities: pulses intact, No edema, normal color, Full ROM - Gastrointestinal General gastrointestinal: Present: soft, non-tender, non-distended, normal bowel sounds - Genitourinary Male genitourinary: normal - Integumentary Integumentary: clear, warm, dry - Musculoskeletal Musculoskeletal: 1, strength equal bilaterally - Neurologic Neurologic: moves all extremities - Psychiatric Psychiatric: memory intact, appropriate mood/affect, intact judgment & insight - Labs CBC & Chem 7: 11/16/17 05:13 11/16/17 05:13 Labs: Abnormal lab results 11/15/17 11/16/17 11/16/17 Range/Units 17:13 01:12 05:13 WBC 20.0 H (4.5-11.0) K/mm3 RBC 2.93 L (3.65-5.03) M/mm3 Hgb 8.1 L (11.8-15.2) gm/dl Hct 25.6 L (35.5-45.6) % RDW 15.6 H (13.2-15.2) % Seg Neuts % (Manual) 81.0 H (40.0-70.0) % Lymphocytes % (Manual) 7.0 L (13.4-35.0) % Seg Neutrophils # Man 16.2 H (1.8-7.7) K/mm3 Sodium (137-145) mmol/L Chloride (98-107) mmol/L BUN (9-20) mg/dL Glucose (75-100) mg/dL POC Glucose 122 H 211 H (70-105) Calcium (8.4-10.2) mg/dL 11/16/17 11/16/17 11/16/17 Range/Units 05:13 07:20 16:28 WBC (4.5-11.0) K/mm3 RBC (3.65-5.03) M/mm3 Hgb (11.8-15.2) gm/dl Hct (35.5-45.6) % RDW (13.2-15.2) % Seg Neuts % (Manual) (40.0-70.0) % Lymphocytes % (Manual) (13.4-35.0) % Seg Neutrophils # Man (1.8-7.7) K/mm3 Sodium 148 H (137-145) mmol/L Chloride 112.6 H (98-107) mmol/L BUN 27 H (9-20) mg/dL Glucose 233 H (75-100) mg/dL POC Glucose 226 H 301 H (70-105) Calcium 7.8 L (8.4-10.2) mg/dL
[2017-11-16] MEDS: ZOSYN/NS 4.5GM/100ML 4.5 GM/100 ML VIAL IV SCH ×2 (20:03→22:34)
[2017-11-16] MEDS: AMBIEN PO SCH (22:39)
[2017-11-16] MEDS: ARICEPT PO SCH (22:43)
[2017-11-17 05:45] LABS: Calcium 7.6 mg/dL (8.4-10.2)
[2017-11-17] MEDS: NEURONTIN PO SCH ×3 (06:32→22:30)
[2017-11-17] MEDS: ZOSYN/NS 4.5GM/100ML 4.5 GM/100 ML VIAL IV SCH (06:33)
[2017-11-17] MEDS: DUONEB *Not for PRN Use IH SCH ×3 (07:59→19:20)
[2017-11-17] MEDS: VANCOMYCIN/NS 1 GM/250 ML 1 GM/250 ML BAG IV SCH (09:59)
[2017-11-17] MEDS: ELIQUIS PO SCH ×2 (10:00→22:30)
[2017-11-17] MEDS: PEPCID PO SCH ×2 (10:01→22:30)
[2017-11-17] MEDS: SINEMET PO SCH ×4 (10:01→22:30)
[2017-11-17] MEDS: PLAVIX PO SCH (10:01)
[2017-11-17] MEDS ORDERED: NACL 0.9% 1000 ML 1,000 ML ONE (12:09)
--- NOTE | 2017-11-17 12:39 | Progress Note ---
Assessment and Plan impression * Acute kidney injury * Hypernatremia * Pneumonia * Hypertension * Diabetes * coronary artery disease Recommendations * Patient renal function is getting worse. And his urine output is also declining. His blood pressure is also on the low side. Suspect possible HTN. Probably compounded by the recent contrast. Need to consider interstitial kidney disease as well. * I had ordered IV fluid for him yesterday. However he is is not getting any at this time. * Shall place him on isotonic fluids at this time as he is hypotensive. Shall also check a UA as well as a fractional excretion of sodium and urine for eosinophils * Serum sodium is improving. Continue free water flushes 250 mL every 4 hours via his feeding tube * Hypokalemia has been corrected * Avoid nephrotoxins * Strict intake and output Subjective Date of service: 11/17/17 Interval history: Patient remains nonverbal. Appears comfortable. Ventimask in place Objective - Vital Signs Vital signs: Vital Signs - 12hr 11/17/17 11/17/17 11/17/17 02:00 03:42 07:58 Temperature 98.4 F Pulse Rate 87 89 Pulse Rate [ Throughout] Respiratory 21 Rate Respiratory Rate [ Throughout] Blood Pressure 92/48 Blood Pressure [Left] O2 Sat by Pulse 97 98 Oximetry 11/17/17 11/17/17 11/17/17 07:59 08:07 09:03 Temperature 97.3 F L Pulse Rate 82 Pulse Rate [ 83 87 Throughout] Respiratory 98 H Rate Respiratory 20 20 Rate [ Throughout] Blood Pressure Blood Pressure 93/52 [Left] O2 Sat by Pulse Oximetry - General Appearance General appearance: well-developed, well-nourished, appears stated age, other ( Ventimask in place) EENT: PERRL, mucous membranes moist Neck: no JVD, no thyromegaly, no carotid bruit, supple Respiratory: Present: Clear to Ascultation Cardiology: regular, normal heart rate Gastrointestinal: normoactive bowel sounds, other (PEG tube in place) Integumentary: other (no edema) - Lab 11/16/17 05:13 11/17/17 04:45 Most recent lab results Calcium 7.6 mg/dL (8.4-10.2) L 11/17/17 04:45 Magnesium 1.90 mg/dL (1.7-2.3) 11/16/17 05:13
[2017-11-17] MEDS: ZOSYN/NS 2.25 GM/50ML 2.25 GM/50 ML BAG IV SCH ×2 (13:17→18:17)
[2017-11-17 14:16] LABS: Bilirubin,Urine NEG (Negative); Blood,Urine SM (Negative); Color,Urine Yellow (Yellow); Nitrite,Urine NEG (Negative); Protein,Urine <15 mg/dL mg/dL (Negative); Urobilinogen,Urine < 2.0 mg/dL (<2.0)
[2017-11-17 14:21] LABS: RBC,Urine < 1.0 /HPF (0.0-6.0); WBC,Urine < 1.0 /HPF (0.0-6.0)
--- NOTE | 2017-11-17 14:37 | Progress Note ---
Assessment and Plan Assessment and Plan Assessment and plan: --CINDI getting worse-If his renal function continues to worsen, Would need to consider renal replacement therapy. However he is a very poor long-term dialysis candidate. --Acute respiratory failure; oxygen titrated O2 sats more than 90%, BiPAP as needed, Nebulizers IV steroids and IV antibiotics -- Hypernatremia ; free water flushes, closely monitor, IV fluids --Lower extremity DVT; continue Eliquis per protocol, --Type 2 diabetes mellitus; moderate control, Accu-Chek sliding scale coverage to feeding and insulin, --Hypertension; continue current antihypertensives --History of coronary artery disease status post CABG; stable on medications --Acute renal failure; resolved --Severe protein calorie malnutrition; supportive care, nutrition supplements --Full CODE STATUS --DC planning. Case management, discharge back to SNF 1-2 days if stable Subjective Date of service: 11/17/17 Principal diagnosis: CINDI Interval history: Same condition Objective - Constitutional Vitals: Vital Signs - 12hr 11/17/17 11/17/17 11/17/17 03:42 07:58 07:59 Temperature 98.4 F Pulse Rate 89 Pulse Rate [ 83 Throughout] Respiratory 21 Rate Respiratory 20 Rate [ Throughout] Blood Pressure 92/48 Blood Pressure [Left] Blood Pressure [Right] O2 Sat by Pulse 97 98 Oximetry 11/17/17 11/17/17 11/17/17 08:07 09:03 12:44 Temperature 97.3 F L 98.3 F Pulse Rate 82 87 Pulse Rate [ 87 Throughout] Respiratory 98 H 20 Rate Respiratory 20 Rate [ Throughout] Blood Pressure Blood Pressure 93/52 [Left] Blood Pressure 91/51 [Right] O2 Sat by Pulse 96 Oximetry 11/17/17 11/17/17 13:41 13:49 Temperature Pulse Rate Pulse Rate [ 86 87 Throughout] Respiratory Rate Respiratory 20 20 Rate [ Throughout] Blood Pressure Blood Pressure [Left] Blood Pressure [Right] O2 Sat by Pulse Oximetry General appearance: Present: no acute distress, well-nourished - EENT Eyes: PERRL, EOM intact ENT: hearing intact, clear oral mucosa Ears: bilateral: normal - Neck Neck: supple, normal ROM - Respiratory Respiratory effort: normal Respiratory: bilateral: CTA - Breasts Breasts: normal - Cardiovascular Rhythm: regular Heart Sounds: Present: S1 & S2. Absent: gallop, rub Extremities: pulses intact, No edema, normal color, Full ROM - Gastrointestinal General gastrointestinal: Present: soft, non-tender, non-distended, normal bowel sounds - Genitourinary Male genitourinary: normal - Integumentary Integumentary: clear, warm, dry - Musculoskeletal Musculoskeletal: 1, strength equal bilaterally - Neurologic Neurologic: moves all extremities - Psychiatric Psychiatric: memory intact, appropriate mood/affect, intact judgment & insight - Allied health notes Allied health notes reviewed: nursing, case management - Labs CBC & Chem 7: 11/16/17 05:13 11/18/17 04:24 Labs: Abnormal lab results 11/16/17 11/16/17 11/16/17 Range/Units 16:28 19:43 23:39 BUN (9-20) mg/dL Creatinine (0.8-1.5) mg/dL Glucose (75-100) mg/dL POC Glucose 301 H 262 H 260 H (70-105) Calcium (8.4-10.2) mg/dL 11/17/17 Range/Units 04:45 BUN 52 H (9-20) mg/dL Creatinine 2.5 H D (0.8-1.5) mg/dL Glucose 195 H (75-100) mg/dL POC Glucose (70-105) Calcium 7.6 L (8.4-10.2) mg/dL
[2017-11-17] MEDS: NACL 0.9% 1000 ML 1,000 ML IV SCH (22:29)
[2017-11-17] MEDS: ARICEPT PO SCH (22:30)
[2017-11-17] MEDS: AMBIEN PO SCH (22:31)
[2017-11-18] MEDS: ZOSYN/NS 2.25 GM/50ML 2.25 GM/50 ML BAG IV SCH ×4 (00:47→22:27)
[2017-11-18 06:27] LABS: Calcium 7.4 mg/dL (8.4-10.2)
[2017-11-18] MEDS: NEURONTIN PO SCH ×3 (06:45→22:22)
[2017-11-18] MEDS: NACL 0.9% 1000 ML 1,000 ML IV SCH ×2 (07:35→19:43)
[2017-11-18] MEDS: DUONEB *Not for PRN Use IH SCH ×3 (09:41→19:37)
[2017-11-18] MEDS: PEPCID PO SCH ×2 (10:35→22:23)
[2017-11-18] MEDS: PLAVIX PO SCH (10:35)
[2017-11-18] MEDS: ELIQUIS PO SCH ×2 (10:35→22:47)
[2017-11-18] MEDS: SINEMET PO SCH ×4 (10:35→22:23)
--- NOTE | 2017-11-18 11:08 | Progress Note ---
Assessment and Plan impression * Acute kidney injury * Hypernatremia * Pneumonia * Hypertension * Diabetes * coronary artery disease Recommendations * Patient renal function is getting worse. And his urine output is also declining. His blood pressure is also on the low side. Suspect possible HTN. His urine specific gravity however is high at 1.026. He most likely has a prerenal component. Urine shows only small blood . His renal failure has also probably been compounded by the recent contrast. Need to consider interstitial kidney disease as well. * Patient blood pressure remains low. She'll continue him on IV saline. * If his renal function continues to worsen, Would need to consider renal replacement therapy. However he is a very poor long-term dialysis candidate. * Called patient's home number [phone] . No answer. Also called patient' s next of kin Jonathan Jameson [phone]. Left message. However the message had a different person's name. * Serum sodium is improving. Continue free water flushes 250 mL every 4 hours via his feeding tube * Hypokalemia has been corrected * Avoid nephrotoxins * Strict intake and output * His overall prognosis is poor Subjective Date of service: 11/18/17 Interval history: Patient remains lethargic. Remains on Ventimask at 35% FiO2. Objective - Vital Signs Vital signs: Vital Signs - 12hr 11/18/17 11/18/17 11/18/17 00:04 04:25 08:13 Temperature 99.4 F 99.2 F Pulse Rate 93 H 94 H Pulse Rate [ Throughout] Respiratory 36 H 28 H 20 Rate Respiratory Rate [ Throughout] Blood Pressure 95/44 94/49 Blood Pressure [Left] O2 Sat by Pulse 98 95 Oximetry 11/18/17 11/18/17 11/18/17 08:22 08:35 09:41 Temperature 98.9 F Pulse Rate 90 91 H Pulse Rate [ 96 H Throughout] Respiratory 20 Rate Respiratory 20 Rate [ Throughout] Blood Pressure Blood Pressure 86/57 [Left] O2 Sat by Pulse 97 Oximetry 11/18/17 09:59 Temperature Pulse Rate Pulse Rate [ Throughout] Respiratory Rate Respiratory Rate [ Throughout] Blood Pressure Blood Pressure [Left] O2 Sat by Pulse 98 Oximetry - General Appearance General appearance: chronically ill, frail EENT: PERRL, mucous membranes moist Neck: no JVD Respiratory: Present: [place] (scattered rhonchi) Cardiology: regular, normal heart rate Gastrointestinal: normal, normoactive bowel sounds, other (Peg tube in place) Integumentary: other (1+ edema) - Lab 11/16/17 05:13 11/18/17 04:24 Most recent lab results Calcium 7.4 mg/dL (8.4-10.2) L 11/18/17 04:24 Magnesium 1.90 mg/dL (1.7-2.3) 11/16/17 05:13
--- NOTE | 2017-11-18 15:24 | Progress Note ---
Assessment and Plan Assessment and Plan Assessment and plan: --CINDI getting worse-If his renal function continues to worsen, Would need to consider renal replacement therapy. However he is a very poor long-term dialysis candidate. --Acute respiratory failure; oxygen titrated O2 sats more than 90%, BiPAP as needed, Nebulizers IV steroids and IV antibiotics -- Hypernatremia ; free water flushes, closely monitor, IV fluids --Lower extremity DVT; continue Eliquis per protocol, --Type 2 diabetes mellitus; moderate control, Accu-Chek sliding scale coverage to feeding and insulin, --Hypertension; continue current antihypertensives --History of coronary artery disease status post CABG; stable on medications --Acute renal failure; resolved --Severe protein calorie malnutrition; supportive care, nutrition supplements --Full CODE STATUS --DC planning. Case management, discharge back to SNF 1-2 days if stable Will transfer to regular floor Subjective Date of service: 11/18/17 Principal diagnosis: CINDI Interval history: Same condition Objective - Constitutional Vitals: Vital Signs - 12hr 11/18/17 11/18/17 11/18/17 04:25 08:13 08:22 Temperature 99.2 F Pulse Rate 94 H 90 Pulse Rate [ Throughout] Respiratory 28 H 20 Rate Respiratory Rate [ Throughout] Blood Pressure 94/49 Blood Pressure [Left] O2 Sat by Pulse 95 Oximetry 11/18/17 11/18/17 11/18/17 08:35 09:41 09:59 Temperature 98.9 F Pulse Rate 91 H Pulse Rate [ 96 H Throughout] Respiratory 20 Rate Respiratory 20 Rate [ Throughout] Blood Pressure Blood Pressure 86/57 [Left] O2 Sat by Pulse 97 98 Oximetry 11/18/17 12:20 Temperature 98.7 F Pulse Rate 98 H Pulse Rate [ Throughout] Respiratory 20 Rate Respiratory Rate [ Throughout] Blood Pressure Blood Pressure 105/77 [Left] O2 Sat by Pulse 99 Oximetry General appearance: Present: mild distress, well-nourished - EENT Eyes: PERRL, EOM intact ENT: hearing intact, clear oral mucosa Ears: bilateral: normal - Neck Neck: supple, normal ROM - Respiratory Respiratory effort: normal Respiratory: bilateral: CTA - Breasts Breasts: normal - Cardiovascular Rhythm: regular Heart Sounds: Present: S1 & S2. Absent: gallop, rub Extremities: pulses intact, No edema, normal color, Full ROM - Gastrointestinal General gastrointestinal: Present: soft, non-tender, non-distended, normal bowel sounds - Genitourinary Male genitourinary: normal - Integumentary Integumentary: clear, warm, dry - Musculoskeletal Musculoskeletal: 1, strength equal bilaterally - Neurologic Neurologic: moves all extremities - Psychiatric Psychiatric: memory intact, appropriate mood/affect, intact judgment & insight - Labs CBC & Chem 7: 11/16/17 05:13 11/18/17 04:24 Labs: Abnormal lab results 11/17/17 11/17/17 11/17/17 Range/Units 06:47 11:01 15:36 Carbon Dioxide (22-30) mmol/L BUN (9-20) mg/dL Creatinine (0.8-1.5) mg/dL Glucose (75-100) mg/dL POC Glucose 250 H 287 H 326 H (70-105) Calcium (8.4-10.2) mg/dL 11/18/17 11/18/17 11/18/17 Range/Units 00:09 04:24 06:55 Carbon Dioxide 18 L (22-30) mmol/L BUN 73 H (9-20) mg/dL Creatinine 3.4 H (0.8-1.5) mg/dL Glucose 180 H (75-100) mg/dL POC Glucose 228 H 179 H (70-105) Calcium 7.4 L (8.4-10.2) mg/dL
[2017-11-18] MEDS: AMBIEN PO SCH (22:23)
[2017-11-18] MEDS: ARICEPT PO SCH (22:23)
[2017-11-19] MEDS: NEURONTIN PO SCH (05:40)
[2017-11-19] MEDS: ZOSYN/NS 2.25 GM/50ML 2.25 GM/50 ML BAG IV SCH ×3 (05:40→22:29)
[2017-11-19] MEDS: NACL 0.9% 1000 ML 1,000 ML IV SCH ×3 (05:40→17:13)
[2017-11-19 05:50] LABS: Basophils % (Auto) 0.2 % (0.0-1.8); Eosinophils # (Auto) 0.1 K/mm3 (0.0-0.4); Eosinophils % (Auto) 0.7 % (0.0-4.3); Hematocrit 22.7 % (35.5-45.6); Hemoglobin 7.5 gm/dl (11.8-15.2); Lymphocytes # (Auto) 0.8 K/mm3 (1.2-5.4); Lymphocytes % (Auto) 8.8 % (13.4-35.0); Mean Corpuscular HGB Conc 33 % (32-34); Mean Corpuscular Hemoglobin 28 pg (28-32); Mean Corpuscular Volume 86 fl (84-94); Monocytes # (Auto) 0.6 K/mm3 (0.0-0.8); Monocytes % (Auto) 6.5 % (0.0-7.3); Platelet Count 198 K/mm3 (140-440); Red Blood Count 2.64 M/mm3 (3.65-5.03); Red Cell Distribution Width 15.3 % (13.2-15.2)
[2017-11-19 06:06] LABS: Calcium 7.5 mg/dL (8.4-10.2)
[2017-11-19 07:45] LABS: Creatinine,Urine 34.5 mg/dL (0.1-20.0); Fractional Sodium Excretion 3.2
[2017-11-19] MEDS: DUONEB *Not for PRN Use IH SCH ×3 (08:13→20:26)
--- NOTE | 2017-11-19 08:34 | Progress Note ---
Assessment and Plan Assessment and plan: --ARF. 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 If his renal function continues to worsen, Would need to consider renal replacement therapy. However he is a very poor long-term dialysis candidate. --Acute respiratory failure; oxygen titrated O2 sats more than 90%, BiPAP as needed, Nebulizers IV steroids and IV antibiotics --Sepsis; secondary to aspiration pneumonia, --left-sided pneumonia/ HCAP probably due to aspiration, cont. Zosyn, aspiration precautions, Follow cultures, consider ID evaluation if needed --Anemia. Check iron studies and hemoccult. Consider hematology evaluation. -- Hypernatremia. resolved --Lower extremity DVT; continue Eliquis per protocol, --Type 2 diabetes mellitus; moderate control, Accu-Chek sliding scale coverage to feeding and insulin, --Hypertension; continue current antihypertensives --History of coronary artery disease status post CABG; stable on medications --Severe protein calorie malnutrition; supportive care, nutrition supplements --Full CODE STATUS History Interval history: no new issues overnight Hospitalist Physical - Constitutional Vitals: Temp Pulse Resp BP Pulse Ox 97.9 F 95 H 24 99/47 98 11/19/17 07:30 11/19/17 08:13 11/19/17 08:13 11/19/17 07:30 11/19/17 08:15 General appearance: Present: no acute distress, well-nourished - EENT Eyes: Present: PERRL, EOM intact ENT: hearing intact, clear oral mucosa, dentition normal - Neck Neck: Present: supple, normal ROM - Respiratory Respiratory effort: normal Respiratory: bilateral: CTA - Cardiovascular Rhythm: regular Heart Sounds: Present: S1 & S2. Absent: gallop, rub - Extremities Extremities: no ischemia, No edema, Full ROM - Abdominal General gastrointestinal: soft, non-tender, non-distended, normal bowel sounds - Integumentary Integumentary: Present: clear, warm, dry - Neurologic Neurologic: CNII-XII intact, moves all extremities Results - Labs CBC & Chem 7: 11/19/17 05:30 11/19/17 05:30 Labs: Laboratory Last Values WBC 9.6 K/mm3 (4.5-11.0) 11/19/17 05:30 RBC 2.64 M/mm3 (3.65-5.03) L 11/19/17 05:30 Hgb 7.5 gm/dl (11.8-15.2) L 11/19/17 05:30 Hct 22.7 % (35.5-45.6) L 11/19/17 05:30 MCV 86 fl (84-94) 11/19/17 05:30 MCH 28 pg (28-32) 11/19/17 05:30 MCHC 33 % (32-34) 11/19/17 05:30 RDW 15.3 % (13.2-15.2) H 11/19/17 05:30 Plt Count 198 K/mm3 (140-440) 11/19/17 05:30 Lymph % (Auto) 8.8 % (13.4-35.0) L 11/19/17 05:30 [place] % (Auto) 6.5 % (0.0-7.3) 11/19/17 05:30 Eos % (Auto) 0.7 % (0.0-4.3) 11/19/17 05:30 Baso % (Auto) 0.2 % (0.0-1.8) 11/19/17 05:30 Lymph # 0.8 K/mm3 (1.2-5.4) L 11/19/17 05:30 [place] # 0.6 K/mm3 (0.0-0.8) 11/19/17 05:30 Eos # 0.1 K/mm3 (0.0-0.4) 11/19/17 05:30 Baso # 0.0 K/mm3 (0.0-0.1) 11/19/17 05:30 Add Manual Diff Complete 11/16/17 05:13 Total Counted 100 11/16/17 05:13 Seg Neutrophils % 83.8 % (40.0-70.0) H 11/19/17 05:30 Seg Neuts % (Manual) 81.0 % (40.0-70.0) H 11/16/17 05:13 Band Neutrophils % 9.0 % 11/16/17 05:13 Lymphocytes % (Manual) 7.0 % (13.4-35.0) L 11/16/17 05:13 Reactive Lymphs % (Man) 0 % 11/16/17 05:13 Monocytes % (Manual) 3.0 % (0.0-7.3) 11/16/17 05:13 Eosinophils % (Manual) 0 % (0.0-4.3) 11/16/17 05:13 Basophils % (Manual) 0 % (0.0-1.8) 11/16/17 05:13 Metamyelocytes % 0 % 11/16/17 05:13 Myelocytes % 0 % 11/16/17 05:13 Promyelocytes % 0 % 11/16/17 05:13 Blast Cells % 0 % 11/16/17 05:13 Nucleated RBC % Not Reportable 11/16/17 05:13 Seg Neutrophils # 8.1 K/mm3 (1.8-7.7) H 11/19/17 05:30 Seg Neutrophils # Man 16.2 K/mm3 (1.8-7.7) H 11/16/17 05:13 Band Neutrophils # 1.8 K/mm3 11/16/17 05:13 Lymphocytes # (Manual) 1.4 K/mm3 (1.2-5.4) 11/16/17 05:13 Abs React Lymphs (Man) 0.0 K/mm3 11/16/17 05:13 Monocytes # (Manual) 0.6 K/mm3 (0.0-0.8) 11/16/17 05:13 Eosinophils # (Manual) 0.0 K/mm3 (0.0-0.4) 11/16/17 05:13 Basophils # (Manual) 0.0 K/mm3 (0.0-0.1) 11/16/17 05:13 Metamyelocytes # 0.0 K/mm3 11/16/17 05:13 Myelocytes # 0.0 K/mm3 11/16/17 05:13 Promyelocytes # 0.0 K/mm3 11/16/17 05:13 Blast Cells # 0.0 K/mm3 11/16/17 05:13 WBC Morphology Not Reportable 11/16/17 05:13 Hypersegmented Neuts Not Reportable 11/16/17 05:13 Hyposegmented Neuts Not Reportable 11/16/17 05:13 Hypogranular Neuts Not Reportable 11/16/17 05:13 Smudge Cells Not Reportable 11/16/17 05:13 Toxic Granulation Not Reportable 11/16/17 05:13 Toxic Vacuolation Not Reportable 11/16/17 05:13 Dohle Bodies Not Reportable 11/16/17 05:13 Pelger-Huet Anomaly Not Reportable 11/16/17 05:13 Karli Rods Not Reportable 11/16/17 05:13 Platelet Estimate Appears normal 11/16/17 05:13 Clumped Platelets Not Reportable 11/16/17 05:13 Plt Clumps, EDTA Not Reportable 11/16/17 05:13 Large Platelets Not Reportable 11/16/17 05:13 Giant Platelets Not Reportable 11/16/17 05:13 Platelet Satelliting Not Reportable 11/16/17 05:13 Plt Morphology Comment Not Reportable 11/16/17 05:13 RBC Morphology Not Reportable 11/16/17 05:13 Dimorphic RBCs Not Reportable 11/16/17 05:13 Polychromasia Rare 11/16/17 05:13 Hypochromasia Not Reportable 11/16/17 05:13 Poikilocytosis Not Reportable 11/16/17 05:13 Anisocytosis 1+ 11/16/17 05:13 Microcytosis Not Reportable 11/16/17 05:13 Macrocytosis Not Reportable 11/16/17 05:13 Spherocytes Not Reportable 11/16/17 05:13 Pappenheimer Bodies Not Reportable 11/16/17 05:13 Sickle Cells Not Reportable 11/16/17 05:13 Target Cells Not Reportable 11/16/17 05:13 Tear Drop Cells Not Reportable 11/16/17 05:13 Ovalocytes Not Reportable 11/16/17 05:13 Helmet Cells Not Reportable 11/16/17 05:13 [place] Bodies Not Reportable 11/16/17 05:13 [place] Rings Not Reportable 11/16/17 05:13 Daniel Cells Not Reportable 11/16/17 05:13 Bite Cells Not Reportable 11/16/17 05:13 Crenated Cell Not Reportable 11/16/17 05:13 Elliptocytes Not Reportable 11/16/17 05:13 Acanthocytes (Spur) Not Reportable 11/16/17 05:13 Rouleaux Not Reportable 11/16/17 05:13 Hemoglobin C Crystals Not Reportable 11/16/17 05:13 Schistocytes Not Reportable 11/16/17 05:13 Malaria parasites Not Reportable 11/16/17 05:13 Harshad Bodies Not Reportable 11/16/17 05:13 Hem Pathologist Commnt No 11/16/17 05:13 PT 17.4 Sec. (12.2-14.9) H 11/07/17 15:29 INR 1.35 (0.87-1.13) H 11/07/17 15:29 D-Dimer > 71897 ng/mlDDU (0-234) H 11/07/17 15:29 VBG pH 7.254 (7.320-7.420) L 11/07/17 15:29 Sodium 139 mmol/L (137-145) 11/19/17 05:30 Potassium 5.2 mmol/L (3.6-5.0) H 11/19/17 05:30 Chloride 103.2 mmol/L (98-107) 11/19/17 05:30 Carbon Dioxide 19 mmol/L (22-30) L 11/19/17 05:30 Anion Gap 22 mmol/L 11/19/17 05:30 BUN 89 mg/dL (9-20) H 11/19/17 05:30 Creatinine 3.9 mg/dL (0.8-1.5) H 11/19/17 05:30 Estimated GFR 18 ml/min 11/19/17 05:30 BUN/Creatinine Ratio 23 % 11/19/17 05:30 Glucose 196 mg/dL (75-100) H 11/19/17 05:30 POC Glucose 204 (70-105) H 11/19/17 05:44 Osmolality 355 Mosm/kg 11/12/17 09:13 Lactic Acid 6.60 mmol/L (0.7-2.0) H* 11/07/17 17:44 Uric Acid 3.9 mg/dL (3.5-7.6) 11/12/17 09:13 Calcium 7.5 mg/dL (8.4-10.2) L 11/19/17 05:30 Magnesium 1.90 mg/dL (1.7-2.3) 11/16/17 05:13 Total Bilirubin 0.40 mg/dL (0.1-1.2) 11/07/17 15:29 AST 39 units/L (5-40) 11/07/17 15:29 ALT 13 units/L (7-56) 11/07/17 15:29 Alkaline Phosphatase 125 units/L (35-129) 11/07/17 15:29 Total Creatine Kinase 900 units/L (55-170) H 11/08/17 23:41 Troponin T 0.037 ng/mL (0.00-0.029) H 11/07/17 15:29 Total Protein 7.3 g/dL (6.3-8.2) 11/07/17 15:29 Albumin 2.4 g/dL (3.9-5) L 11/07/17 15:29 Albumin/Globulin Ratio 0.5 % 11/07/17 15:29 Triglycerides 46 mg/dL (2-149) 11/07/17 15:29 Cholesterol 56 mg/dL (50-199) 11/07/17 15:29 LDL Cholesterol Direct 32 mg/dL (50-130) L 11/07/17 15:29 HDL Cholesterol 15 mg/dL (40-59) L 11/07/17 15:29 Cholesterol/HDL Ratio 3.73 % 11/07/17 15:29 Urine Color Yellow (Yellow) 11/17/17 13:19 Urine Turbidity Cloudy (Clear) 11/17/17 13:19 Urine pH 6.0 (5.0-7.0) 11/17/17 13:19 Ur Specific [place] 1.026 (1.003-1.030) 11/17/17 13:19 Urine Protein <15 mg/dl mg/dL (Negative) 11/17/17 13:19 Urine Glucose (UA) Neg mg/dL (Negative) 11/17/17 13:19 Urine Ketones Neg mg/dL (Negative) 11/17/17 13:19 Urine Blood Sm (Negative) 11/17/17 13:19 Urine Nitrite Neg (Negative) 11/17/17 13:19 Urine Bilirubin Neg (Negative) 11/17/17 13:19 Urine Urobilinogen < 2.0 mg/dL (<2.0) 11/17/17 13:19 Ur Leukocyte Esterase Mod (Negative) 11/17/17 13:19 Urine WBC (Auto) < 1.0 /HPF (0.0-6.0) 11/17/17 13:19 Urine RBC (Auto) < 1.0 /HPF (0.0-6.0) 11/17/17 13:19 U Epithel Cells (Auto) < 1.0 /HPF (0-13.0) 11/07/17 20:10 Urine Bacteria (Auto) 2+ /HPF (Negative) 11/07/17 20:10 Urine WBC Clumps 3+ /HPF 11/07/17 20:10 Ur Yeast w Hyphae 1+ /HPF 11/07/17 20:10 Urine Yeast (Budding) 3+ /HPF 11/07/17 20:10 Urine Osmolality 332 Mosm/kg 11/19/17 06:30 Urine Creatinine 34.5 mg/dL (0.1-20.0) H 11/19/17 06:30 Urine Sodium 41 mmol/L 11/19/17 06:30 Fraction Sodium Excret 3.2 11/19/17 06:30 Vancomycin Trough 7.2 ug/mL (5.0-20.0) 11/15/17 18:50 Random Vancomycin 38.8 ug/mL (0-40.0) 11/18/17 04:24
[2017-11-19] MEDS ORDERED: GUAIFENESIN DM SYRUP FEEDTUBE PRN (09:15)
[2017-11-19] MEDS ORDERED: TYLENOL FEEDTUBE PRN (09:15)
[2017-11-19] MEDS ORDERED: MILK OF MAGNESIA FEEDTUBE PRN (09:15)
[2017-11-19] MEDS ORDERED: ULTRAM FEEDTUBE PRN (09:16)
[2017-11-19] MEDS: PLAVIX FEEDTUBE SCH (09:39)
[2017-11-19] MEDS: PEPCID FEEDTUBE SCH ×2 (09:40→22:29)
[2017-11-19] MEDS: SINEMET FEEDTUBE SCH ×4 (09:40→22:31)
[2017-11-19 09:44] LABS: Iron 20 ug/dL (49-181); Total Iron Binding Capacity 76 mcg/dL (250-450)
[2017-11-19] MEDS: ELIQUIS FEEDTUBE SCH ×2 (09:49→22:31)
--- NOTE | 2017-11-19 11:23 | Progress Note ---
Assessment and Plan impression * Acute kidney injury * Hypernatremia * Pneumonia * Hypertension * Diabetes * coronary artery disease Recommendations * Patient's urine output seems to have improved significantly. Serum creatinine is noted to be higher, hopefully it is plateauing. Suspect possible ATN. His urine specific gravity however is high at 1.026. He most likely has a prerenal component. Urine shows only small blood . His renal failure has also probably been compounded by the recent contrast. Need to consider interstitial kidney disease as well. * Patient blood pressure remains low. Shall continue him on IV saline. * No urgent indication for renal replacement therapy at this time. However he is a very poor long-term dialysis candidate. * Had called patient's home number [phone] . No answer. Has also called patient's next of kin Maico Bell [phone]. Left message. Have not heard back from him. * Serum sodium is improving. Continue free water flushes 250 mL every 4 hours via his feeding tube * Avoid nephrotoxins * Strict intake and output * His overall prognosis is poor Subjective Date of service: 11/19/17 Principal diagnosis: CINDI Interval history: Patient is comfortable this morning. Remains lethargic. Still on 35% Ventimask. Objective - Vital Signs Vital signs: Vital Signs - 12hr 11/19/17 11/19/17 11/19/17 02:06 04:34 06:29 Temperature 98.6 F 98.2 F Pulse Rate 90 90 Pulse Rate [ Anterior Bilateral Throughout] Respiratory 20 22 Rate Respiratory Rate [Anterior Bilateral Throughout] Blood Pressure 102/52 Blood Pressure 121/66 [Left] O2 Sat by Pulse 96 97 Oximetry 11/19/17 11/19/17 11/19/17 07:30 08:13 08:15 Temperature 97.9 F Pulse Rate 89 Pulse Rate [ 95 H Anterior Bilateral Throughout] Respiratory 22 Rate Respiratory 24 Rate [Anterior Bilateral Throughout] Blood Pressure 99/47 Blood Pressure [Left] O2 Sat by Pulse 99 98 Oximetry 11/19/17 08:29 Temperature Pulse Rate Pulse Rate [ 91 H Anterior Bilateral Throughout] Respiratory Rate Respiratory 22 Rate [Anterior Bilateral Throughout] Blood Pressure Blood Pressure [Left] O2 Sat by Pulse Oximetry - General Appearance General appearance: well-developed, well-nourished, appears stated age EENT: PERRL, mucous membranes moist Neck: no JVD, no thyromegaly, no carotid bruit, supple Respiratory: Present: Ronchi (bilateral scattered rhonchi) Cardiology: regular, normal heart rate, S1S2, no murmurs Gastrointestinal: normal, normoactive bowel sounds, other (PEG tube in place) Integumentary: other (1+ edema) - Lab 11/19/17 05:30 11/19/17 05:30 Most recent lab results Calcium 7.5 mg/dL (8.4-10.2) L 11/19/17 05:30 Magnesium 1.90 mg/dL (1.7-2.3) 11/16/17 05:13 Urine Creatinine 34.5 mg/dL (0.1-20.0) H 11/19/17 06:30 Urine Sodium 41 mmol/L 11/19/17 06:30
[2017-11-19] MEDS: NEURONTIN FEEDTUBE SCH ×2 (14:54→22:30)
[2017-11-19] MEDS: ARICEPT FEEDTUBE SCH (22:30)
[2017-11-19] MEDS: AMBIEN FEEDTUBE SCH (22:30)
[2017-11-20] MEDS: NACL 0.9% 1000 ML 1,000 ML IV SCH (03:30)
[2017-11-20 06:08] LABS: Calcium 7.5 mg/dL (8.4-10.2)
[2017-11-20] MEDS ORDERED: KIONEX PO NR (06:18)
[2017-11-20] MEDS: ZOSYN/NS 2.25 GM/50ML 2.25 GM/50 ML BAG IV SCH ×3 (06:41→23:00)
[2017-11-20] MEDS: NEURONTIN FEEDTUBE SCH ×3 (06:41→23:00)
[2017-11-20] MEDS: DUONEB *Not for PRN Use IH SCH ×3 (07:47→20:19)
--- NOTE | 2017-11-20 09:15 | Progress Note ---
Assessment and Plan Assessment and plan: --ARF. 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 If his renal function continues to worsen, Would need to consider renal replacement therapy. However he is a very poor long-term dialysis candidate. --Hyperkalemia. s/p Kayexalate. Also, we will rx with insulin and glucose --Acute respiratory failure; oxygen titrated O2 sats more than 90%, BiPAP as needed, Nebulizers IV steroids and IV antibiotics --Sepsis; secondary to aspiration pneumonia, --left-sided pneumonia/ HCAP probably due to aspiration, cont. Zosyn, aspiration precautions, Follow cultures, consider ID evaluation if needed --Anemia. Check iron studies and hemoccult. Consider hematology evaluation. -- Hypernatremia. resolved. cont free water --Lower extremity DVT; continue Eliquis per protocol, --Type 2 diabetes mellitus; moderate control, Accu-Chek sliding scale coverage to feeding and insulin, --Hypertension; continue current antihypertensives --History of coronary artery disease status post CABG; stable on medications --Severe protein calorie malnutrition; supportive care, nutrition supplements --Full CODE STATUS History Interval history: no new issues overnight Hospitalist Physical - Constitutional Vitals: Temp Pulse Resp BP Pulse Ox 97.7 F 96 H 16 96/52 96 11/20/17 07:42 11/20/17 08:02 11/20/17 08:02 11/20/17 07:42 11/20/17 07:47 General appearance: Present: no acute distress, well-nourished - EENT Eyes: Present: PERRL, EOM intact ENT: hearing intact, clear oral mucosa, dentition normal - Neck Neck: Present: supple, normal ROM - Respiratory Respiratory effort: normal Respiratory: bilateral: CTA - Cardiovascular Rhythm: regular Heart Sounds: Present: S1 & S2. Absent: gallop, rub - Extremities Extremities: no ischemia, No edema, Full ROM - Abdominal General gastrointestinal: soft, non-tender, non-distended, normal bowel sounds - Integumentary Integumentary: Present: clear, warm, dry - Neurologic Neurologic: CNII-XII intact, moves all extremities Results - Labs CBC & Chem 7: 11/19/17 05:30 11/20/17 04:42 Labs: Laboratory Last Values WBC 9.6 K/mm3 (4.5-11.0) 11/19/17 05:30 RBC 2.64 M/mm3 (3.65-5.03) L 11/19/17 05:30 Hgb 7.5 gm/dl (11.8-15.2) L 11/19/17 05:30 Hct 22.7 % (35.5-45.6) L 11/19/17 05:30 MCV 86 fl (84-94) 11/19/17 05:30 MCH 28 pg (28-32) 11/19/17 05:30 MCHC 33 % (32-34) 11/19/17 05:30 RDW 15.3 % (13.2-15.2) H 11/19/17 05:30 Plt Count 198 K/mm3 (140-440) 11/19/17 05:30 Lymph % (Auto) 8.8 % (13.4-35.0) L 11/19/17 05:30 [place] % (Auto) 6.5 % (0.0-7.3) 11/19/17 05:30 Eos % (Auto) 0.7 % (0.0-4.3) 11/19/17 05:30 Baso % (Auto) 0.2 % (0.0-1.8) 11/19/17 05:30 Lymph # 0.8 K/mm3 (1.2-5.4) L 11/19/17 05:30 [place] # 0.6 K/mm3 (0.0-0.8) 11/19/17 05:30 Eos # 0.1 K/mm3 (0.0-0.4) 11/19/17 05:30 Baso # 0.0 K/mm3 (0.0-0.1) 11/19/17 05:30 Add Manual Diff Complete 11/16/17 05:13 Total Counted 100 11/16/17 05:13 Seg Neutrophils % 83.8 % (40.0-70.0) H 11/19/17 05:30 Seg Neuts % (Manual) 81.0 % (40.0-70.0) H 11/16/17 05:13 Band Neutrophils % 9.0 % 11/16/17 05:13 Lymphocytes % (Manual) 7.0 % (13.4-35.0) L 11/16/17 05:13 Reactive Lymphs % (Man) 0 % 11/16/17 05:13 Monocytes % (Manual) 3.0 % (0.0-7.3) 11/16/17 05:13 Eosinophils % (Manual) 0 % (0.0-4.3) 11/16/17 05:13 Basophils % (Manual) 0 % (0.0-1.8) 11/16/17 05:13 Metamyelocytes % 0 % 11/16/17 05:13 Myelocytes % 0 % 11/16/17 05:13 Promyelocytes % 0 % 11/16/17 05:13 Blast Cells % 0 % 11/16/17 05:13 Nucleated RBC % Not Reportable 11/16/17 05:13 Seg Neutrophils # 8.1 K/mm3 (1.8-7.7) H 11/19/17 05:30 Seg Neutrophils # Man 16.2 K/mm3 (1.8-7.7) H 11/16/17 05:13 Band Neutrophils # 1.8 K/mm3 11/16/17 05:13 Lymphocytes # (Manual) 1.4 K/mm3 (1.2-5.4) 11/16/17 05:13 Abs React Lymphs (Man) 0.0 K/mm3 11/16/17 05:13 Monocytes # (Manual) 0.6 K/mm3 (0.0-0.8) 11/16/17 05:13 Eosinophils # (Manual) 0.0 K/mm3 (0.0-0.4) 11/16/17 05:13 Basophils # (Manual) 0.0 K/mm3 (0.0-0.1) 11/16/17 05:13 Metamyelocytes # 0.0 K/mm3 11/16/17 05:13 Myelocytes # 0.0 K/mm3 11/16/17 05:13 Promyelocytes # 0.0 K/mm3 11/16/17 05:13 Blast Cells # 0.0 K/mm3 11/16/17 05:13 WBC Morphology Not Reportable 11/16/17 05:13 Hypersegmented Neuts Not Reportable 11/16/17 05:13 Hyposegmented Neuts Not Reportable 11/16/17 05:13 Hypogranular Neuts Not Reportable 11/16/17 05:13 Smudge Cells Not Reportable 11/16/17 05:13 Toxic Granulation Not Reportable 11/16/17 05:13 Toxic Vacuolation Not Reportable 11/16/17 05:13 Dohle Bodies Not Reportable 11/16/17 05:13 Pelger-Huet Anomaly Not Reportable 11/16/17 05:13 Karli Rods Not Reportable 11/16/17 05:13 Platelet Estimate Appears normal 11/16/17 05:13 Clumped Platelets Not Reportable 11/16/17 05:13 Plt Clumps, EDTA Not Reportable 11/16/17 05:13 Large Platelets Not Reportable 11/16/17 05:13 Giant Platelets Not Reportable 11/16/17 05:13 Platelet Satelliting Not Reportable 11/16/17 05:13 Plt Morphology Comment Not Reportable 11/16/17 05:13 RBC Morphology Not Reportable 11/16/17 05:13 Dimorphic RBCs Not Reportable 11/16/17 05:13 Polychromasia Rare 11/16/17 05:13 Hypochromasia Not Reportable 11/16/17 05:13 Poikilocytosis Not Reportable 11/16/17 05:13 Anisocytosis 1+ 11/16/17 05:13 Microcytosis Not Reportable 11/16/17 05:13 Macrocytosis Not Reportable 11/16/17 05:13 Spherocytes Not Reportable 11/16/17 05:13 Pappenheimer Bodies Not Reportable 11/16/17 05:13 Sickle Cells Not Reportable 11/16/17 05:13 Target Cells Not Reportable 11/16/17 05:13 Tear Drop Cells Not Reportable 11/16/17 05:13 Ovalocytes Not Reportable 11/16/17 05:13 Helmet Cells Not Reportable 11/16/17 05:13 [place]ove-[place] Bodies Not Reportable 11/16/17 05:13 [place] Rings Not Reportable 11/16/17 05:13 [place] Cells Not Reportable 11/16/17 05:13 Bite Cells Not Reportable 11/16/17 05:13 Crenated Cell Not Reportable 11/16/17 05:13 Elliptocytes Not Reportable 11/16/17 05:13 Acanthocytes (Spur) Not Reportable 11/16/17 05:13 Rouleaux Not Reportable 11/16/17 05:13 Hemoglobin C Crystals Not Reportable 11/16/17 05:13 Schistocytes Not Reportable 11/16/17 05:13 Malaria parasites Not Reportable 11/16/17 05:13 Percent Retic 2.99 % (0.78-2.58) H 11/19/17 08:34 Harshad Bodies Not Reportable 11/16/17 05:13 Hem Pathologist Commnt No 11/16/17 05:13 PT 17.4 Sec. (12.2-14.9) H 11/07/17 15:29 INR 1.35 (0.87-1.13) H 11/07/17 15:29 D-Dimer > 56867 ng/mlDDU (0-234) H 11/07/17 15:29 VBG pH 7.254 (7.320-7.420) L 11/07/17 15:29 Sodium 135 mmol/L (137-145) L 11/20/17 04:42 Potassium 6.4 mmol/L (3.6-5.0) H* D 11/20/17 04:42 Chloride 104.3 mmol/L (98-107) 11/20/17 04:42 Carbon Dioxide 18 mmol/L (22-30) L 11/20/17 04:42 Anion Gap 19 mmol/L 11/20/17 04:42 BUN 83 mg/dL (9-20) H 11/20/17 04:42 Creatinine 3.5 mg/dL (0.8-1.5) H 11/20/17 04:42 Estimated GFR 21 ml/min 11/20/17 04:42 BUN/Creatinine Ratio 24 % 11/20/17 04:42 Glucose 177 mg/dL (75-100) H 11/20/17 04:42 POC Glucose 193 (70-105) H 11/20/17 06:48 Osmolality 355 Mosm/kg 11/12/17 09:13 Lactic Acid 6.60 mmol/L (0.7-2.0) H* 11/07/17 17:44 Uric Acid 3.9 mg/dL (3.5-7.6) 11/12/17 09:13 Calcium 7.5 mg/dL (8.4-10.2) L 11/20/17 04:42 Magnesium 1.90 mg/dL (1.7-2.3) 11/16/17 05:13 Iron 20 ug/dL (49-181) L 11/19/17 08:34 TIBC 76 mcg/dL (250-450) L 11/19/17 08:34 Ferritin 530.1 ng/mL (13.0-400.0) H 11/19/17 09:10 Total Bilirubin 0.40 mg/dL (0.1-1.2) 11/07/17 15:29 AST 39 units/L (5-40) 11/07/17 15:29 ALT 13 units/L (7-56) 11/07/17 15:29 Alkaline Phosphatase 125 units/L (35-129) 11/07/17 15:29 Total Creatine Kinase 900 units/L (55-170) H 11/08/17 23:41 Troponin T 0.037 ng/mL (0.00-0.029) H 11/07/17 15:29 Total Protein 7.3 g/dL (6.3-8.2) 11/07/17 15:29 Albumin 2.4 g/dL (3.9-5) L 11/07/17 15:29 Albumin/Globulin Ratio 0.5 % 11/07/17 15:29 Triglycerides 46 mg/dL (2-149) 11/07/17 15:29 Cholesterol 56 mg/dL (50-199) 11/07/17 15:29 LDL Cholesterol Direct 32 mg/dL (50-130) L 11/07/17 15:29 HDL Cholesterol 15 mg/dL (40-59) L 11/07/17 15:29 Cholesterol/HDL Ratio 3.73 % 11/07/17 15:29 Vitamin B12 1367 pg/mL (211-911) H 11/19/17 08:34 Folate 19.30 ng/mL (7.3-26.0) 11/19/17 09:10 Urine Color Yellow (Yellow) 11/17/17 13:19 Urine Turbidity Cloudy (Clear) 11/17/17 13:19 Urine pH 6.0 (5.0-7.0) 11/17/17 13:19 Ur Specific [place] 1.026 (1.003-1.030) 11/17/17 13:19 Urine Protein <15 mg/dl mg/dL (Negative) 11/17/17 13:19 Urine Glucose (UA) Neg mg/dL (Negative) 11/17/17 13:19 Urine Ketones Neg mg/dL (Negative) 11/17/17 13:19 Urine Blood Sm (Negative) 11/17/17 13:19 Urine Nitrite Neg (Negative) 11/17/17 13:19 Urine Bilirubin Neg (Negative) 11/17/17 13:19 Urine Urobilinogen < 2.0 mg/dL (<2.0) 11/17/17 13:19 Ur Leukocyte Esterase Mod (Negative) 11/17/17 13:19 Urine WBC (Auto) < 1.0 /HPF (0.0-6.0) 11/17/17 13:19 Urine RBC (Auto) < 1.0 /HPF (0.0-6.0) 11/17/17 13:19 U Epithel Cells (Auto) < 1.0 /HPF (0-13.0) 11/07/17 20:10 Urine Bacteria (Auto) 2+ /HPF (Negative) 11/07/17 20:10 Urine WBC Clumps 3+ /HPF 11/07/17 20:10 Ur Yeast w Hyphae 1+ /HPF 11/07/17 20:10 Urine Yeast (Budding) 3+ /HPF 11/07/17 20:10 Urine Eosinophils <5% (None Seen) 11/19/17 06:30 Urine Osmolality 332 Mosm/kg 11/19/17 06:30 Urine Creatinine 34.5 mg/dL (0.1-20.0) H 11/19/17 06:30 Urine Sodium 41 mmol/L 11/19/17 06:30 Fraction Sodium Excret 3.2 11/19/17 06:30 Vancomycin Trough 7.2 ug/mL (5.0-20.0) 11/15/17 18:50 Random Vancomycin 38.8 ug/mL (0-40.0) 11/18/17 04:24
[2017-11-20] MEDS ORDERED: CALCIUM GLUCONATE 1,000 MG in NACL 0.9% 100 ML IV ONE (09:24)
[2017-11-20] MEDS: PLAVIX FEEDTUBE SCH (09:38)
[2017-11-20] MEDS: ELIQUIS FEEDTUBE SCH ×2 (09:39→23:01)
[2017-11-20] MEDS: PEPCID FEEDTUBE SCH ×2 (09:39→23:01)
[2017-11-20] MEDS: SINEMET FEEDTUBE SCH ×4 (09:39→23:00)
[2017-11-20] MEDS ORDERED: D50W (25GM) Syringe IV ONE (10:00)
[2017-11-20] MEDS ORDERED: SODIUM BICARBONATE IV ONE (10:00)
[2017-11-20] MEDS: KIONEX PO SCH ×2 (10:06→13:34)
--- NOTE | 2017-11-20 10:06 | XRay Report ---
Portable chest: Followup pneumonia. Comparison is made to the prior exam of November 11. The is are focal areas of consolidation at both lung bases that are more dense than seen on prior study. Other areas of mild patchy density are noted in both mid lungs worse on the left than previously noted. There are currently bilateral effusions are not previously present. The heart is normal in size and there are bypass changes. No vascular congestion appreciated. Impression: Worsening bilateral infiltrates and interval development of bilateral small effusions.
--- NOTE | 2017-11-20 10:29 | Progress Note ---
Assessment and Plan impression * Acute kidney injury * Hypernatremia * Pneumonia * Hypertension * Diabetes * coronary artery disease Recommendations * Patient's serum creatinine seems to be slowly improving. Urine output however is borderline at this time. He most likely has ATN from hypotension and sepsis. Probably compounded by contrast. * Patient is noted to be hyperkalemic as well. Shall treat him medically with Kayexalate, D50 and insulin, calcium as well as sodium bicarbonate . * He is also mildly acidotic. Add bicarbonate to the IV fluid. * No urgent indication for renal replacement therapy at this time. However if his renal function deteriorates and/or if difficult to control his hyperkalemia , he would need renal replacement therapy at least acutely. * Spoke with patient's daughter and next of kin Serena Brooke at [phone] and discuss dialysis with patient. As per her wishes, she is okay with dialysis if needed. * Serum sodium has improved. Shall discontinue the free water flushes * Avoid nephrotoxins * Strict intake and output * His overall prognosis is poor Subjective Date of service: 11/20/17 Principal diagnosis: CINDI Interval history: Patient remains nonverbal. Currently on 35% Ventimask. Objective - Vital Signs Vital signs: Vital Signs - 12hr 11/20/17 11/20/17 11/20/17 00:00 07:42 07:47 Temperature 97.7 F Pulse Rate 94 H Pulse Rate [ 98 H Anterior Bilateral Throughout] Respiratory 28 H 22 Rate Respiratory 18 Rate [Anterior Bilateral Throughout] Respiratory 24 Rate [ Generalized] Blood Pressure 96/52 O2 Sat by Pulse 96 96 Oximetry 11/20/17 08:02 Temperature Pulse Rate Pulse Rate [ 96 H Anterior Bilateral Throughout] Respiratory Rate Respiratory 16 Rate [Anterior Bilateral Throughout] Respiratory Rate [ Generalized] Blood Pressure O2 Sat by Pulse Oximetry - General Appearance General appearance: chronically ill, frail EENT: PERRL, mucous membranes moist Neck: no JVD, no thyromegaly, no carotid bruit, supple Respiratory: Present: Ronchi (scattered rhonchi) Cardiology: regular, normal heart rate, S1S2, no murmurs Gastrointestinal: normal, normoactive bowel sounds, other (PEG tube in place) Integumentary: other (no edema) - Lab 11/19/17 05:30 11/20/17 04:42 Most recent lab results Calcium 7.5 mg/dL (8.4-10.2) L 11/20/17 04:42 Magnesium 1.90 mg/dL (1.7-2.3) 11/16/17 05:13 Urine Creatinine 34.5 mg/dL (0.1-20.0) H 11/19/17 06:30 Urine Sodium 41 mmol/L 11/19/17 06:30
[2017-11-20] MEDS ORDERED: NACL 0.45% 1000 ML 1,000 ML with SODIUM BICARBONATE 50 MEQ IV SCH (11:00)
--- NOTE | 2017-11-20 12:31 | Cat Scan Report ---
CT abdomen and pelvis without contrast: Fever and swollen scrotum: Transverse images were obtained from lower chest to the ischium. Oral contrast administered. Coronal and sagittal 2-D reformatted images. Comparison made to prior exam on November 15, 2017. There is a moderate right effusion. There is left basilar atelectasis. Less of the chest is currently noted than on the prior exam but the findings are similar. There is a PEG tube in good position. Most of the injected contrast remains in the stomach with very little in the bowel. There is mild dilatation of most bowel loops in a rather nonspecific pattern. The bowel is more distended than seen on prior exam but there is no obstructing site. No colonic dilatation. Large stable right renal cyst. The urinary bladder is significantly distended similar to prior exam but slightly worse. There is a penile prosthesis with a left-sided reservoir and a right scrotal pump. There is generalized edema of the subcutaneous tissues of the pelvis somewhat worse on the right the left this extends into the scrotal sac where there is marked induration of the entire sac. The sac is more included on the current examination than on the previous exam however these findings have worsened on the available comparison images. There is spinal hardware in the lower lumbar spine and there is a left hip prosthesis. No destructive bone lesions appreciated. Impression: Pelvic wall edema extending into the indurated scrotal sac consistent with inflammatory change. No abscess identified. Worsening findings compared to prior exam. Interval development of mild generalized dilatation of small bowel. No obstructing site probably representing ileus. Right effusion and left lower lobe atelectasis. Incomplete evaluation but similar to prior exam.
[2017-11-20] MEDS: AMBIEN FEEDTUBE SCH (23:01)
[2017-11-20] MEDS: ARICEPT FEEDTUBE SCH (23:01)
[2017-11-21 04:06] LABS: Basophils % (Auto) 0.5 % (0.0-1.8); Eosinophils % (Auto) 0.7 % (0.0-4.3); Hematocrit 24.1 % (35.5-45.6); Hemoglobin 7.6 gm/dl (11.8-15.2); Lymphocytes # (Auto) 0.7 K/mm3 (1.2-5.4); Mean Corpuscular HGB Conc 32 % (32-34); Mean Corpuscular Hemoglobin 28 pg (28-32); Mean Corpuscular Volume 89 fl (84-94); Monocytes # (Auto) 0.4 K/mm3 (0.0-0.8); Monocytes % (Auto) 6.1 % (0.0-7.3); Platelet Count 288 K/mm3 (140-440); Red Blood Count 2.71 M/mm3 (3.65-5.03); Red Cell Distribution Width 15.9 % (13.2-15.2)
[2017-11-21 04:27] LABS: Calcium 7.6 mg/dL (8.4-10.2)
[2017-11-21] MEDS: NEURONTIN FEEDTUBE SCH ×3 (06:18→21:42)
[2017-11-21] MEDS: ZOSYN/NS 2.25 GM/50ML 2.25 GM/50 ML BAG IV SCH ×3 (06:18→21:41)
[2017-11-21] MEDS: DUONEB *Not for PRN Use IH SCH ×3 (08:28→19:54)
--- NOTE | 2017-11-21 10:32 | Progress Note ---
Assessment and Plan Assessment and plan: --ARF. 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 If his renal function continues to worsen, Would need to consider renal replacement therapy. However he is a very poor long-term dialysis candidate. --Hyperkalemia. s/p Kayexalate, insulin and glucose. Improved --Acute respiratory failure, BiPAP as needed, Nebulizers IV steroids and IV antibiotics --Sepsis; secondary to aspiration pneumonia, --left-sided pneumonia/ HCAP probably due to aspiration, cont. Zosyn, aspiration precautions, Follow cultures, --Anemia. Check iron studies and hemoccult. Consider hematology evaluation. -- Hypernatremia. resolved. cont free water --Lower extremity DVT; continue Eliquis per protocol, --Type 2 diabetes mellitus; moderate control, Accu-Chek sliding scale coverage to feeding and insulin, --Hypertension; continue current antihypertensives --History of coronary artery disease status post CABG; stable on medications --Severe protein calorie malnutrition; supportive care, nutrition supplements --D/W daughter MARCO A Lyons poor prognosis. She understands and would like to make patient DNR. History Interval history: no new issues overnight Hospitalist Physical - Constitutional Vitals: Temp Pulse Resp BP Pulse Ox 97.4 F L 101 H 18 111/56 96 11/21/17 07:47 11/21/17 08:28 11/21/17 08:28 11/21/17 07:47 11/21/17 08:32 General appearance: Present: no acute distress, well-nourished - EENT Eyes: Present: PERRL, EOM intact ENT: hearing intact, clear oral mucosa, dentition normal - Neck Neck: Present: supple, normal ROM - Respiratory Respiratory effort: normal Respiratory: bilateral: CTA - Cardiovascular Rhythm: regular Heart Sounds: Present: S1 & S2. Absent: gallop, rub - Extremities Extremities: no ischemia, No edema, Full ROM - Abdominal General gastrointestinal: soft, non-tender, non-distended, normal bowel sounds - Integumentary Integumentary: Present: clear, warm, dry - Neurologic Neurologic: CNII-XII intact, moves all extremities Results - Labs CBC & Chem 7: 11/21/17 03:41 11/21/17 03:41 Labs: Laboratory Last Values WBC 7.2 K/mm3 (4.5-11.0) 11/21/17 03:41 RBC 2.71 M/mm3 (3.65-5.03) L 11/21/17 03:41 Hgb 7.6 gm/dl (11.8-15.2) L 11/21/17 03:41 Hct 24.1 % (35.5-45.6) L 11/21/17 03:41 MCV 89 fl (84-94) 11/21/17 03:41 MCH 28 pg (28-32) 11/21/17 03:41 MCHC 32 % (32-34) 11/21/17 03:41 RDW 15.9 % (13.2-15.2) H 11/21/17 03:41 Plt Count 288 K/mm3 (140-440) 11/21/17 03:41 Lymph % (Auto) 10.0 % (13.4-35.0) L 11/21/17 03:41 [place] % (Auto) 6.1 % (0.0-7.3) 11/21/17 03:41 Eos % (Auto) 0.7 % (0.0-4.3) 11/21/17 03:41 Baso % (Auto) 0.5 % (0.0-1.8) 11/21/17 03:41 Lymph # 0.7 K/mm3 (1.2-5.4) L 11/21/17 03:41 [place] # 0.4 K/mm3 (0.0-0.8) 11/21/17 03:41 Eos # 0.0 K/mm3 (0.0-0.4) 11/21/17 03:41 Baso # 0.0 K/mm3 (0.0-0.1) 11/21/17 03:41 Add Manual Diff Complete 11/16/17 05:13 Total Counted 100 11/16/17 05:13 Seg Neutrophils % 82.7 % (40.0-70.0) H 11/21/17 03:41 Seg Neuts % (Manual) 81.0 % (40.0-70.0) H 11/16/17 05:13 Band Neutrophils % 9.0 % 11/16/17 05:13 Lymphocytes % (Manual) 7.0 % (13.4-35.0) L 11/16/17 05:13 Reactive Lymphs % (Man) 0 % 11/16/17 05:13 Monocytes % (Manual) 3.0 % (0.0-7.3) 11/16/17 05:13 Eosinophils % (Manual) 0 % (0.0-4.3) 11/16/17 05:13 Basophils % (Manual) 0 % (0.0-1.8) 11/16/17 05:13 Metamyelocytes % 0 % 11/16/17 05:13 Myelocytes % 0 % 11/16/17 05:13 Promyelocytes % 0 % 11/16/17 05:13 Blast Cells % 0 % 11/16/17 05:13 Nucleated RBC % Not Reportable 11/16/17 05:13 Seg Neutrophils # 6.0 K/mm3 (1.8-7.7) 11/21/17 03:41 Seg Neutrophils # Man 16.2 K/mm3 (1.8-7.7) H 11/16/17 05:13 Band Neutrophils # 1.8 K/mm3 11/16/17 05:13 Lymphocytes # (Manual) 1.4 K/mm3 (1.2-5.4) 11/16/17 05:13 Abs React Lymphs (Man) 0.0 K/mm3 11/16/17 05:13 Monocytes # (Manual) 0.6 K/mm3 (0.0-0.8) 11/16/17 05:13 Eosinophils # (Manual) 0.0 K/mm3 (0.0-0.4) 11/16/17 05:13 Basophils # (Manual) 0.0 K/mm3 (0.0-0.1) 11/16/17 05:13 Metamyelocytes # 0.0 K/mm3 11/16/17 05:13 Myelocytes # 0.0 K/mm3 11/16/17 05:13 Promyelocytes # 0.0 K/mm3 11/16/17 05:13 Blast Cells # 0.0 K/mm3 11/16/17 05:13 WBC Morphology Not Reportable 11/16/17 05:13 Hypersegmented Neuts Not Reportable 11/16/17 05:13 Hyposegmented Neuts Not Reportable 11/16/17 05:13 Hypogranular Neuts Not Reportable 11/16/17 05:13 Smudge Cells Not Reportable 11/16/17 05:13 Toxic Granulation Not Reportable 11/16/17 05:13 Toxic Vacuolation Not Reportable 11/16/17 05:13 Dohle Bodies Not Reportable 11/16/17 05:13 Pelger-Huet Anomaly Not Reportable 11/16/17 05:13 Karli Rods Not Reportable 11/16/17 05:13 Platelet Estimate Appears normal 11/16/17 05:13 Clumped Platelets Not Reportable 11/16/17 05:13 Plt Clumps, EDTA Not Reportable 11/16/17 05:13 Large Platelets Not Reportable 11/16/17 05:13 Giant Platelets Not Reportable 11/16/17 05:13 Platelet Satelliting Not Reportable 11/16/17 05:13 Plt Morphology Comment Not Reportable 11/16/17 05:13 RBC Morphology Not Reportable 11/16/17 05:13 Dimorphic RBCs Not Reportable 11/16/17 05:13 Polychromasia Rare 11/16/17 05:13 Hypochromasia Not Reportable 11/16/17 05:13 Poikilocytosis Not Reportable 11/16/17 05:13 Anisocytosis 1+ 11/16/17 05:13 Microcytosis Not Reportable 11/16/17 05:13 Macrocytosis Not Reportable 11/16/17 05:13 Spherocytes Not Reportable 11/16/17 05:13 Pappenheimer Bodies Not Reportable 11/16/17 05:13 Sickle Cells Not Reportable 11/16/17 05:13 Target Cells Not Reportable 11/16/17 05:13 Tear Drop Cells Not Reportable 11/16/17 05:13 Ovalocytes Not Reportable 11/16/17 05:13 Helmet Cells Not Reportable 11/16/17 05:13 [place] Bodies Not Reportable 11/16/17 05:13 [place] Rings Not Reportable 11/16/17 05:13 Daniel Cells Not Reportable 11/16/17 05:13 Bite Cells Not Reportable 11/16/17 05:13 Crenated Cell Not Reportable 11/16/17 05:13 Elliptocytes Not Reportable 11/16/17 05:13 Acanthocytes (Spur) Not Reportable 11/16/17 05:13 Rouleaux Not Reportable 11/16/17 05:13 Hemoglobin C Crystals Not Reportable 11/16/17 05:13 Schistocytes Not Reportable 11/16/17 05:13 Malaria parasites Not Reportable 11/16/17 05:13 Percent Retic 2.99 % (0.78-2.58) H 11/19/17 08:34 Harshad Bodies Not Reportable 11/16/17 05:13 Hem Pathologist Commnt No 11/16/17 05:13 PT 17.4 Sec. (12.2-14.9) H 11/07/17 15:29 INR 1.35 (0.87-1.13) H 11/07/17 15:29 D-Dimer > 42073 ng/mlDDU (0-234) H 11/07/17 15:29 POC ABG pH 7.322 (7.35-7.45) L 11/20/17 16:32 POC ABG pCO2 42.1 (35-45) 11/20/17 16:32 POC ABG pO2 90 (80-105) 11/20/17 16:32 POC ABG HCO3 21.8 11/20/17 16:32 POC ABG Total CO2 23 11/20/17 16:32 POC ABG O2 Sat 96 11/20/17 16:32 POC ABG Base Excess -4 11/20/17 16:32 VBG pH 7.254 (7.320-7.420) L 11/07/17 15:29 Sodium 143 mmol/L (137-145) D 11/21/17 03:41 Potassium 5.1 mmol/L (3.6-5.0) H 11/21/17 03:41 Chloride 106.5 mmol/L (98-107) 11/21/17 03:41 Carbon Dioxide 20 mmol/L (22-30) L 11/21/17 03:41 Anion Gap 22 mmol/L 11/21/17 03:41 BUN 84 mg/dL (9-20) H 11/21/17 03:41 Creatinine 4.4 mg/dL (0.8-1.5) H 11/21/17 03:41 Estimated GFR 16 ml/min 11/21/17 03:41 BUN/Creatinine Ratio 19 % 11/21/17 03:41 Glucose 118 mg/dL (75-100) H 11/21/17 03:41 POC Glucose 159 (70-105) H 11/21/17 06:26 Osmolality 355 Mosm/kg 11/12/17 09:13 Lactic Acid 6.60 mmol/L (0.7-2.0) H* 11/07/17 17:44 Uric Acid 3.9 mg/dL (3.5-7.6) 11/12/17 09:13 Calcium 7.6 mg/dL (8.4-10.2) L 11/21/17 03:41 Magnesium 1.90 mg/dL (1.7-2.3) 11/16/17 05:13 Iron 20 ug/dL (49-181) L 11/19/17 08:34 TIBC 76 mcg/dL (250-450) L 11/19/17 08:34 Ferritin 530.1 ng/mL (13.0-400.0) H 11/19/17 09:10 Total Bilirubin 0.40 mg/dL (0.1-1.2) 11/07/17 15:29 AST 39 units/L (5-40) 11/07/17 15:29 ALT 13 units/L (7-56) 11/07/17 15:29 Alkaline Phosphatase 125 units/L (35-129) 11/07/17 15:29 Total Creatine Kinase 900 units/L (55-170) H 11/08/17 23:41 Troponin T 0.037 ng/mL (0.00-0.029) H 11/07/17 15:29 Total Protein 7.3 g/dL (6.3-8.2) 11/07/17 15:29 Albumin 2.4 g/dL (3.9-5) L 11/07/17 15:29 Albumin/Globulin Ratio 0.5 % 11/07/17 15:29 Triglycerides 46 mg/dL (2-149) 11/07/17 15:29 Cholesterol 56 mg/dL (50-199) 11/07/17 15:29 LDL Cholesterol Direct 32 mg/dL (50-130) L 11/07/17 15:29 HDL Cholesterol 15 mg/dL (40-59) L 11/07/17 15:29 Cholesterol/HDL Ratio 3.73 % 11/07/17 15:29 Vitamin B12 1367 pg/mL (211-911) H 11/19/17 08:34 Folate 19.30 ng/mL (7.3-26.0) 11/19/17 09:10 Urine Color Yellow (Yellow) 11/17/17 13:19 Urine Turbidity Cloudy (Clear) 11/17/17 13:19 Urine pH 6.0 (5.0-7.0) 11/17/17 13:19 Ur Specific [place] 1.026 (1.003-1.030) 11/17/17 13:19 Urine Protein <15 mg/dl mg/dL (Negative) 11/17/17 13:19 Urine Glucose (UA) Neg mg/dL (Negative) 11/17/17 13:19 Urine Ketones Neg mg/dL (Negative) 11/17/17 13:19 Urine Blood Sm (Negative) 11/17/17 13:19 Urine Nitrite Neg (Negative) 11/17/17 13:19 Urine Bilirubin Neg (Negative) 11/17/17 13:19 Urine Urobilinogen < 2.0 mg/dL (<2.0) 11/17/17 13:19 Ur Leukocyte Esterase Mod (Negative) 11/17/17 13:19 Urine WBC (Auto) < 1.0 /HPF (0.0-6.0) 11/17/17 13:19 Urine RBC (Auto) < 1.0 /HPF (0.0-6.0) 11/17/17 13:19 U Epithel Cells (Auto) < 1.0 /HPF (0-13.0) 11/07/17 20:10 Urine Bacteria (Auto) 2+ /HPF (Negative) 11/07/17 20:10 Urine WBC Clumps 3+ /HPF 11/07/17 20:10 Ur Yeast w Hyphae 1+ /HPF 11/07/17 20:10 Urine Yeast (Budding) 3+ /HPF 11/07/17 20:10 Urine Eosinophils <5% (None Seen) 11/19/17 06:30 Urine Osmolality 332 Mosm/kg 11/19/17 06:30 Urine Creatinine 34.5 mg/dL (0.1-20.0) H 11/19/17 06:30 Urine Sodium 41 mmol/L 11/19/17 06:30 Fraction Sodium Excret 3.2 11/19/17 06:30 Vancomycin Trough 7.2 ug/mL (5.0-20.0) 11/15/17 18:50 Random Vancomycin 25.8 ug/mL (0-40.0) 11/21/17 03:41
[2017-11-21] MEDS: ELIQUIS FEEDTUBE SCH ×3 (10:44→21:41)
[2017-11-21] MEDS: PEPCID FEEDTUBE SCH ×3 (10:45→21:41)
[2017-11-21] MEDS: SINEMET FEEDTUBE SCH ×5 (10:45→21:41)
[2017-11-21] MEDS: PLAVIX FEEDTUBE SCH ×2 (10:45→11:34)
--- NOTE | 2017-11-21 11:11 | Progress Note ---
Assessment and Plan impression * Acute kidney injury * Hypernatremia * Pneumonia * Hypertension * Diabetes * coronary artery disease Recommendations * Patient's serum creatinine seems to be rising again. His urine output is declining also . He most likely has ATN from hypotension and sepsis. Probably compounded by contrast. * His hyperkalemia is much better with medical therapy. Acidosis is also better with bicarbonate drip. * Spoke with patient's daughter and next of kin Serena Brooke at [phone] and discussed his renal status. Given his poor outcome, she does not wish to pursue dialysis at this time. Leaning more towards comfort care. * Serum sodium noted to be higher. He is currently off the water flushes. Shall continue to monitor * Avoid nephrotoxins * Strict intake and output * His overall prognosis is poor Subjective Date of service: 11/21/17 Principal diagnosis: CINDI Interval history: Patient lethargic. Remains on Ventimask. He is currently a DO NOT RESUSCITATE. Resting comfortably. Objective - Vital Signs Vital signs: Vital Signs - 12hr 11/21/17 11/21/17 11/21/17 05:40 07:47 08:00 Temperature 97.5 F L 97.4 F L Pulse Rate 103 H Pulse Rate [ 22 L Anterior Bilateral Throughout] Respiratory 28 H 21 Rate Respiratory 18 Rate [Anterior Bilateral Throughout] Blood Pressure 106/53 111/56 O2 Sat by Pulse 97 Oximetry 11/21/17 11/21/17 08:28 08:32 Temperature Pulse Rate Pulse Rate [ 101 H Anterior Bilateral Throughout] Respiratory Rate Respiratory 18 Rate [Anterior Bilateral Throughout] Blood Pressure O2 Sat by Pulse 96 Oximetry - General Appearance General appearance: chronically ill, frail EENT: PERRL, mucous membranes moist Neck: no JVD, no thyromegaly, no carotid bruit, supple Respiratory: Present: Ronchi (bilateral scattered rhonchi) Cardiology: regular, normal heart rate, S1S2, no murmurs Gastrointestinal: normoactive bowel sounds, other (PEG tube in place) Integumentary: other (1+ edema) - Lab 11/21/17 03:41 11/21/17 03:41 Most recent lab results Calcium 7.6 mg/dL (8.4-10.2) L 11/21/17 03:41 Magnesium 1.90 mg/dL (1.7-2.3) 11/16/17 05:13 Urine Creatinine 34.5 mg/dL (0.1-20.0) H 11/19/17 06:30 Urine Sodium 41 mmol/L 11/19/17 06:30
[2017-11-21] MEDS: AMBIEN FEEDTUBE SCH (21:42)
[2017-11-21] MEDS: ARICEPT FEEDTUBE SCH (21:42)
[2017-11-22 05:00] LABS: Basophils % (Auto) 0.6 % (0.0-1.8); Eosinophils # (Auto) 0.1 K/mm3 (0.0-0.4); Eosinophils % (Auto) 1.1 % (0.0-4.3); Hematocrit 21.1 % (35.5-45.6); Lymphocytes % (Auto) 14.9 % (13.4-35.0); Mean Corpuscular HGB Conc 33 % (32-34); Mean Corpuscular Hemoglobin 29 pg (28-32); Mean Corpuscular Volume 88 fl (84-94); Monocytes # (Auto) 0.8 K/mm3 (0.0-0.8); Monocytes % (Auto) 11.9 % (0.0-7.3); Platelet Count 248 K/mm3 (140-440); Red Cell Distribution Width 15.7 % (13.2-15.2)
[2017-11-22] MEDS: NEURONTIN FEEDTUBE SCH ×3 (05:05→23:17)
[2017-11-22] MEDS: ZOSYN/NS 2.25 GM/50ML 2.25 GM/50 ML BAG IV SCH ×3 (05:06→23:00)
[2017-11-22 05:19] LABS: Calcium 7.4 mg/dL (8.4-10.2)
[2017-11-22] MEDS: DUONEB *Not for PRN Use IH SCH ×3 (07:34→19:57)
[2017-11-22] MEDS: PLAVIX FEEDTUBE SCH (09:36)
[2017-11-22] MEDS: PEPCID FEEDTUBE SCH ×2 (09:36→22:59)
[2017-11-22] MEDS: SINEMET FEEDTUBE SCH ×4 (09:37→22:59)
[2017-11-22] MEDS: ELIQUIS FEEDTUBE SCH ×2 (09:37→22:59)
--- NOTE | 2017-11-22 09:58 | Progress Note ---
Assessment and Plan Impression * Acute kidney injury secondary to ATN from hypotension vs sepsis vs VIKTOR * Hypernatremia - resolved * Hyperkalemia - resolved * Pneumonia * Hypertension * Type II diabetes * Coronary artery disease Recommendations * Worsening renal function noted - family has declined dialysis (see prior notes ) * Continue free water flushes * Avoid nephrotoxins * Strict intake and output * His overall prognosis is poor Subjective Date of service: 11/22/17 Principal diagnosis: CINDI Interval history: No acute events Objective - Vital Signs Vital signs: Vital Signs - 12hr 11/22/17 11/22/17 11/22/17 02:58 04:34 07:20 Temperature 97.3 F L 98.2 F Pulse Rate 105 H Pulse Rate [ Anterior Bilateral Throughout] Pulse Rate [ 96 H Apical] Respiratory 28 H 18 22 Rate Respiratory Rate [Anterior Bilateral Throughout] Blood Pressure 124/62 125/67 O2 Sat by Pulse 97 91 Oximetry 11/22/17 11/22/17 11/22/17 07:34 07:35 07:36 Temperature Pulse Rate Pulse Rate [ 105 H 106 H Anterior Bilateral Throughout] Pulse Rate [ Apical] Respiratory Rate Respiratory 23 18 Rate [Anterior Bilateral Throughout] Blood Pressure O2 Sat by Pulse 91 Oximetry - General Appearance General appearance: well-developed EENT: ATNC Respiratory: Present: Other (bilateral rhonchi) Cardiology: regular, S1S2 Gastrointestinal: normal, no tenderness, no distended Integumentary: no rash, warm and dry Neurologic: other (unresponsive) Musculoskeletal: other (trace edema) - Lab 11/22/17 04:25 11/22/17 04:25 Most recent lab results Calcium 7.4 mg/dL (8.4-10.2) L 11/22/17 04:25 Magnesium 1.90 mg/dL (1.7-2.3) 11/16/17 05:13 Urine Creatinine 34.5 mg/dL (0.1-20.0) H 11/19/17 06:30 Urine Sodium 41 mmol/L 11/19/17 06:30
--- NOTE | 2017-11-22 13:25 | Progress Note ---
<BRIA PATEL - Last Filed: 11/22/17 13:40> Assessment and Plan Assessment and plan: --ARF. 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 Renal function continues to worsen, Would need to consider renal replacement therapy. However he is a very poor long- term dialysis candidate. Nephrology following --Hyperkalemia. s/p Kayexalate, insulin and glucose. Improved --Acute respiratory failure, BiPAP as needed, Nebulizers IV steroids and IV antibiotics --Sepsis; secondary to aspiration pneumonia, --left-sided pneumonia/ HCAP probably due to aspiration, cont. Zosyn, aspiration precautions, Follow cultures, --Anemia. Check iron studies and hemoccult. Consider hematology evaluation, -- Hypernatremia. resolved. cont free water --Lower extremity DVT; continue Eliquis per protocol, --Type 2 diabetes mellitus; moderate control, Accu-Chek sliding scale coverage to feeding and insulin, --Hypertension; Controlled on current regimen, continue --History of coronary artery disease status post CABG; stable on medications --Severe protein calorie malnutrition; supportive care, nutrition supplements --Hospice consult ordered History Interval history: Patient seen and examined. Patient is nonverbal and not responding to questions. Labs and nursing notes reviewed. Hospitalist Physical - Constitutional Vitals: Temp Pulse Resp BP Pulse Ox 98.2 F 106 H 18 125/67 91 11/22/17 07:20 11/22/17 07:35 11/22/17 07:35 11/22/17 07:20 11/22/17 07:36 General appearance: Present: well-nourished, other (ill appearing) - EENT Eyes: Present: PERRL, EOM intact ENT: hearing intact, clear oral mucosa - Neck Neck: Present: supple, normal ROM - Respiratory Respiratory effort: normal Respiratory: bilateral: rhonchi - Cardiovascular Rhythm: regular Heart Sounds: Present: S1 & S2 - Extremities Extremities: no ischemia, No edema Peripheral Pulses: within normal limits - Abdominal General gastrointestinal: soft, non-tender - Integumentary Integumentary: Present: clear, warm, dry - Psychiatric Psychiatric: appropriate mood/affect, cooperative - Neurologic Neurologic: CNII-XII intact - Allied Health Allied health notes reviewed: nursing Results - Labs CBC & Chem 7: 11/22/17 04:25 11/22/17 04:25 Labs: Laboratory Last Values WBC 6.7 K/mm3 (4.5-11.0) 11/22/17 04:25 RBC 2.40 M/mm3 (3.65-5.03) L 11/22/17 04:25 Hgb 7.0 gm/dl (11.8-15.2) L 11/22/17 04:25 Hct 21.1 % (35.5-45.6) L 11/22/17 04:25 MCV 88 fl (84-94) 11/22/17 04:25 MCH 29 pg (28-32) 11/22/17 04:25 MCHC 33 % (32-34) 11/22/17 04:25 RDW 15.7 % (13.2-15.2) H 11/22/17 04:25 Plt Count 248 K/mm3 (140-440) 11/22/17 04:25 Lymph % (Auto) 14.9 % (13.4-35.0) 11/22/17 04:25 Nye % (Auto) 11.9 % (0.0-7.3) H 11/22/17 04:25 Eos % (Auto) 1.1 % (0.0-4.3) 11/22/17 04:25 Baso % (Auto) 0.6 % (0.0-1.8) 11/22/17 04:25 Lymph # 1.0 K/mm3 (1.2-5.4) L 11/22/17 04:25 Nye # 0.8 K/mm3 (0.0-0.8) 11/22/17 04:25 Eos # 0.1 K/mm3 (0.0-0.4) 11/22/17 04:25 Baso # 0.0 K/mm3 (0.0-0.1) 11/22/17 04:25 Add Manual Diff Complete 11/16/17 05:13 Total Counted 100 11/16/17 05:13 Seg Neutrophils % 71.5 % (40.0-70.0) H 11/22/17 04:25 Seg Neuts % (Manual) 81.0 % (40.0-70.0) H 11/16/17 05:13 Band Neutrophils % 9.0 % 11/16/17 05:13 Lymphocytes % (Manual) 7.0 % (13.4-35.0) L 11/16/17 05:13 Reactive Lymphs % (Man) 0 % 11/16/17 05:13 Monocytes % (Manual) 3.0 % (0.0-7.3) 11/16/17 05:13 Eosinophils % (Manual) 0 % (0.0-4.3) 11/16/17 05:13 Basophils % (Manual) 0 % (0.0-1.8) 11/16/17 05:13 Metamyelocytes % 0 % 11/16/17 05:13 Myelocytes % 0 % 11/16/17 05:13 Promyelocytes % 0 % 11/16/17 05:13 Blast Cells % 0 % 11/16/17 05:13 Nucleated RBC % Not Reportable 11/16/17 05:13 Seg Neutrophils # 4.8 K/mm3 (1.8-7.7) 11/22/17 04:25 Seg Neutrophils # Man 16.2 K/mm3 (1.8-7.7) H 11/16/17 05:13 Band Neutrophils # 1.8 K/mm3 11/16/17 05:13 Lymphocytes # (Manual) 1.4 K/mm3 (1.2-5.4) 11/16/17 05:13 Abs React Lymphs (Man) 0.0 K/mm3 11/16/17 05:13 Monocytes # (Manual) 0.6 K/mm3 (0.0-0.8) 11/16/17 05:13 Eosinophils # (Manual) 0.0 K/mm3 (0.0-0.4) 11/16/17 05:13 Basophils # (Manual) 0.0 K/mm3 (0.0-0.1) 11/16/17 05:13 Metamyelocytes # 0.0 K/mm3 11/16/17 05:13 Myelocytes # 0.0 K/mm3 11/16/17 05:13 Promyelocytes # 0.0 K/mm3 11/16/17 05:13 Blast Cells # 0.0 K/mm3 11/16/17 05:13 WBC Morphology Not Reportable 11/16/17 05:13 Hypersegmented Neuts Not Reportable 11/16/17 05:13 Hyposegmented Neuts Not Reportable 11/16/17 05:13 Hypogranular Neuts Not Reportable 11/16/17 05:13 Smudge Cells Not Reportable 11/16/17 05:13 Toxic Granulation Not Reportable 11/16/17 05:13 Toxic Vacuolation Not Reportable 11/16/17 05:13 Dohle Bodies Not Reportable 11/16/17 05:13 Pelger-Huet Anomaly Not Reportable 11/16/17 05:13 Karli Rods Not Reportable 11/16/17 05:13 Platelet Estimate Appears normal 11/16/17 05:13 Clumped Platelets Not Reportable 11/16/17 05:13 Plt Clumps, EDTA Not Reportable 11/16/17 05:13 Large Platelets Not Reportable 11/16/17 05:13 Giant Platelets Not Reportable 11/16/17 05:13 Platelet Satelliting Not Reportable 11/16/17 05:13 Plt Morphology Comment Not Reportable 11/16/17 05:13 RBC Morphology Not Reportable 11/16/17 05:13 Dimorphic RBCs Not Reportable 11/16/17 05:13 Polychromasia Rare 11/16/17 05:13 Hypochromasia Not Reportable 11/16/17 05:13 Poikilocytosis Not Reportable 11/16/17 05:13 Anisocytosis 1+ 11/16/17 05:13 Microcytosis Not Reportable 11/16/17 05:13 Macrocytosis Not Reportable 11/16/17 05:13 Spherocytes Not Reportable 11/16/17 05:13 Pappenheimer Bodies Not Reportable 11/16/17 05:13 Sickle Cells Not Reportable 11/16/17 05:13 Target Cells Not Reportable 11/16/17 05:13 Tear Drop Cells Not Reportable 11/16/17 05:13 Ovalocytes Not Reportable 11/16/17 05:13 Helmet Cells Not Reportable 11/16/17 05:13 [place] Bodies Not Reportable 11/16/17 05:13 [place] Rings Not Reportable 11/16/17 05:13 [place] Cells Not Reportable 11/16/17 05:13 Bite Cells Not Reportable 11/16/17 05:13 Crenated Cell Not Reportable 11/16/17 05:13 Elliptocytes Not Reportable 11/16/17 05:13 Acanthocytes (Spur) Not Reportable 11/16/17 05:13 Rouleaux Not Reportable 11/16/17 05:13 Hemoglobin C Crystals Not Reportable 11/16/17 05:13 Schistocytes Not Reportable 11/16/17 05:13 Malaria parasites Not Reportable 11/16/17 05:13 Percent Retic 2.99 % (0.78-2.58) H 11/19/17 08:34 Harshad Bodies Not Reportable 11/16/17 05:13 Haptoglobin 306 mg/dL (43-212) H 11/19/17 09:10 Hem Pathologist Commnt No 11/16/17 05:13 PT 17.4 Sec. (12.2-14.9) H 11/07/17 15:29 INR 1.35 (0.87-1.13) H 11/07/17 15:29 D-Dimer > 59816 ng/mlDDU (0-234) H 11/07/17 15:29 POC ABG pH 7.322 (7.35-7.45) L 11/20/17 16:32 POC ABG pCO2 42.1 (35-45) 11/20/17 16:32 POC ABG pO2 90 (80-105) 11/20/17 16:32 POC ABG HCO3 21.8 11/20/17 16:32 POC ABG Total CO2 23 11/20/17 16:32 POC ABG O2 Sat 96 11/20/17 16:32 POC ABG Base Excess -4 11/20/17 16:32 VBG pH 7.254 (7.320-7.420) L 11/07/17 15:29 Sodium 144 mmol/L (137-145) 11/22/17 04:25 Potassium 5.2 mmol/L (3.6-5.0) H 11/22/17 04:25 Chloride 107.5 mmol/L (98-107) H 11/22/17 04:25 Carbon Dioxide 22 mmol/L (22-30) 11/22/17 04:25 Anion Gap 20 mmol/L 11/22/17 04:25 BUN 92 mg/dL (9-20) H 11/22/17 04:25 Creatinine 5.0 mg/dL (0.8-1.5) H 11/22/17 04:25 Estimated GFR 14 ml/min 11/22/17 04:25 BUN/Creatinine Ratio 18 % 11/22/17 04:25 Glucose 181 mg/dL (75-100) H 11/22/17 04:25 POC Glucose 239 (70-105) H 11/22/17 12:30 Osmolality 355 Mosm/kg 11/12/17 09:13 Lactic Acid 6.60 mmol/L (0.7-2.0) H* 11/07/17 17:44 Uric Acid 3.9 mg/dL (3.5-7.6) 11/12/17 09:13 Calcium 7.4 mg/dL (8.4-10.2) L 11/22/17 04:25 Magnesium 1.90 mg/dL (1.7-2.3) 11/16/17 05:13 Iron 20 ug/dL (49-181) L 11/19/17 08:34 TIBC 76 mcg/dL (250-450) L 11/19/17 08:34 Ferritin 530.1 ng/mL (13.0-400.0) H 11/19/17 09:10 Total Bilirubin 0.40 mg/dL (0.1-1.2) 11/07/17 15:29 AST 39 units/L (5-40) 11/07/17 15:29 ALT 13 units/L (7-56) 11/07/17 15:29 Alkaline Phosphatase 125 units/L (35-129) 11/07/17 15:29 Total Creatine Kinase 900 units/L (55-170) H 11/08/17 23:41 Troponin T 0.037 ng/mL (0.00-0.029) H 11/07/17 15:29 Total Protein 7.3 g/dL (6.3-8.2) 11/07/17 15:29 Albumin 2.4 g/dL (3.9-5) L 11/07/17 15:29 Albumin/Globulin Ratio 0.5 % 11/07/17 15:29 Triglycerides 46 mg/dL (2-149) 11/07/17 15:29 Cholesterol 56 mg/dL (50-199) 11/07/17 15:29 LDL Cholesterol Direct 32 mg/dL (50-130) L 11/07/17 15:29 HDL Cholesterol 15 mg/dL (40-59) L 11/07/17 15:29 Cholesterol/HDL Ratio 3.73 % 11/07/17 15:29 Vitamin B12 1367 pg/mL (211-911) H 11/19/17 08:34 Folate 19.30 ng/mL (7.3-26.0) 11/19/17 09:10 Urine Color Yellow (Yellow) 11/17/17 13:19 Urine Turbidity Cloudy (Clear) 11/17/17 13:19 Urine pH 6.0 (5.0-7.0) 11/17/17 13:19 Ur Specific [place] 1.026 (1.003-1.030) 11/17/17 13:19 Urine Protein <15 mg/dl mg/dL (Negative) 11/17/17 13:19 Urine Glucose (UA) Neg mg/dL (Negative) 11/17/17 13:19 Urine Ketones Neg mg/dL (Negative) 11/17/17 13:19 Urine Blood Sm (Negative) 11/17/17 13:19 Urine Nitrite Neg (Negative) 11/17/17 13:19 Urine Bilirubin Neg (Negative) 11/17/17 13:19 Urine Urobilinogen < 2.0 mg/dL (<2.0) 11/17/17 13:19 Ur Leukocyte Esterase Mod (Negative) 11/17/17 13:19 Urine WBC (Auto) < 1.0 /HPF (0.0-6.0) 11/17/17 13:19 Urine RBC (Auto) < 1.0 /HPF (0.0-6.0) 11/17/17 13:19 U Epithel Cells (Auto) < 1.0 /HPF (0-13.0) 11/07/17 20:10 Urine Bacteria (Auto) 2+ /HPF (Negative) 11/07/17 20:10 Urine WBC Clumps 3+ /HPF 11/07/17 20:10 Ur Yeast w Hyphae 1+ /HPF 11/07/17 20:10 Urine Yeast (Budding) 3+ /HPF 11/07/17 20:10 Urine Eosinophils <5% (None Seen) 11/19/17 06:30 Urine Osmolality 332 Mosm/kg 11/19/17 06:30 Urine Creatinine 34.5 mg/dL (0.1-20.0) H 11/19/17 06:30 Urine Sodium 41 mmol/L 11/19/17 06:30 Fraction Sodium Excret 3.2 11/19/17 06:30 Vancomycin Trough 7.2 ug/mL (5.0-20.0) 11/15/17 18:50 Random Vancomycin 25.8 ug/mL (0-40.0) 11/21/17 03:41 <NATALIIA ALEJANDRE R - Last Filed: 12/11/17 10:18> Assessment and Plan Assessment and plan: I saw and evaluated the patient. I agree with the findings and the plan of care as documented in the Nurse Practitioner's~note, with the following corrections and additions. Hospitalist Physical - Constitutional Vitals: Temp Pulse Resp BP Pulse Ox 98.7 F 106 H 17 105/54 92 11/23/17 07:39 11/23/17 14:53 11/23/17 14:53 11/23/17 07:39 11/23/17 10:00 Results - Labs CBC & Chem 7: 11/23/17 03:45 11/22/17 04:25 Labs: Laboratory Last Values WBC 9.4 K/mm3 (4.5-11.0) 11/23/17 03:45 RBC 3.59 M/mm3 (3.65-5.03) L 11/23/17 03:45 Hgb 10.2 gm/dl (11.8-15.2) L D 11/23/17 03:45 Hct 32.8 % (35.5-45.6) L D 11/23/17 03:45 MCV 91 fl (84-94) 11/23/17 03:45 MCH 28 pg (28-32) 11/23/17 03:45 MCHC 31 % (32-34) L 11/23/17 03:45 RDW 16.8 % (13.2-15.2) H 11/23/17 03:45 Plt Count 347 K/mm3 (140-440) 11/23/17 03:45 Lymph % (Auto) 9.8 % (13.4-35.0) L 11/23/17 03:45 Nye % (Auto) 15.3 % (0.0-7.3) H 11/23/17 03:45 Eos % (Auto) 0.8 % (0.0-4.3) 11/23/17 03:45 Baso % (Auto) 0.7 % (0.0-1.8) 11/23/17 03:45 Lymph # 0.9 K/mm3 (1.2-5.4) L 11/23/17 03:45 Nye # 1.4 K/mm3 (0.0-0.8) H 11/23/17 03:45 Eos # 0.1 K/mm3 (0.0-0.4) 11/23/17 03:45 Baso # 0.1 K/mm3 (0.0-0.1) 11/23/17 03:45 Add Manual Diff Complete 11/16/17 05:13 Total Counted 100 11/16/17 05:13 Seg Neutrophils % 73.4 % (40.0-70.0) H 11/23/17 03:45 Seg Neuts % (Manual) 81.0 % (40.0-70.0) H 11/16/17 05:13 Band Neutrophils % 9.0 % 11/16/17 05:13 Lymphocytes % (Manual) 7.0 % (13.4-35.0) L 11/16/17 05:13 Reactive Lymphs % (Man) 0 % 11/16/17 05:13 Monocytes % (Manual) 3.0 % (0.0-7.3) 11/16/17 05:13 Eosinophils % (Manual) 0 % (0.0-4.3) 11/16/17 05:13 Basophils % (Manual) 0 % (0.0-1.8) 11/16/17 05:13 Metamyelocytes % 0 % 11/16/17 05:13 Myelocytes % 0 % 11/16/17 05:13 Promyelocytes % 0 % 11/16/17 05:13 Blast Cells % 0 % 11/16/17 05:13 Nucleated RBC % Not Reportable 11/16/17 05:13 Seg Neutrophils # 6.9 K/mm3 (1.8-7.7) 11/23/17 03:45 Seg Neutrophils # Man 16.2 K/mm3 (1.8-7.7) H 11/16/17 05:13 Band Neutrophils # 1.8 K/mm3 11/16/17 05:13 Lymphocytes # (Manual) 1.4 K/mm3 (1.2-5.4) 11/16/17 05:13 Abs React Lymphs (Man) 0.0 K/mm3 11/16/17 05:13 Monocytes # (Manual) 0.6 K/mm3 (0.0-0.8) 11/16/17 05:13 Eosinophils # (Manual) 0.0 K/mm3 (0.0-0.4) 11/16/17 05:13 Basophils # (Manual) 0.0 K/mm3 (0.0-0.1) 11/16/17 05:13 Metamyelocytes # 0.0 K/mm3 11/16/17 05:13 Myelocytes # 0.0 K/mm3 11/16/17 05:13 Promyelocytes # 0.0 K/mm3 11/16/17 05:13 Blast Cells # 0.0 K/mm3 11/16/17 05:13 WBC Morphology Not Reportable 11/16/17 05:13 Hypersegmented Neuts Not Reportable 11/16/17 05:13 Hyposegmented Neuts Not Reportable 11/16/17 05:13 Hypogranular Neuts Not Reportable 11/16/17 05:13 Smudge Cells Not Reportable 11/16/17 05:13 Toxic Granulation Not Reportable 11/16/17 05:13 Toxic Vacuolation Not Reportable 11/16/17 05:13 Dohle Bodies Not Reportable 11/16/17 05:13 Pelger-Huet Anomaly Not Reportable 11/16/17 05:13 Karli Rods Not Reportable 11/16/17 05:13 Platelet Estimate Appears normal 11/16/17 05:13 Clumped Platelets Not Reportable 11/16/17 05:13 Plt Clumps, EDTA Not Reportable 11/16/17 05:13 Large Platelets Not Reportable 11/16/17 05:13 Giant Platelets Not Reportable 11/16/17 05:13 Platelet Satelliting Not Reportable 11/16/17 05:13 Plt Morphology Comment Not Reportable 11/16/17 05:13 RBC Morphology Not Reportable 11/16/17 05:13 Dimorphic RBCs Not Reportable 11/16/17 05:13 Polychromasia Rare 11/16/17 05:13 Hypochromasia Not Reportable 11/16/17 05:13 Poikilocytosis Not Reportable 11/16/17 05:13 Anisocytosis 1+ 11/16/17 05:13 Microcytosis Not Reportable 11/16/17 05:13 Macrocytosis Not Reportable 11/16/17 05:13 Spherocytes Not Reportable 11/16/17 05:13 Pappenheimer Bodies Not Reportable 11/16/17 05:13 Sickle Cells Not Reportable 11/16/17 05:13 Target Cells Not Reportable 11/16/17 05:13 Tear Drop Cells Not Reportable 11/16/17 05:13 Ovalocytes Not Reportable 11/16/17 05:13 Helmet Cells Not Reportable 11/16/17 05:13 [place] Bodies Not Reportable 11/16/17 05:13 [place] Rings Not Reportable 11/16/17 05:13 [place] Cells Not Reportable 11/16/17 05:13 Bite Cells Not Reportable 11/16/17 05:13 Crenated Cell Not Reportable 11/16/17 05:13 Elliptocytes Not Reportable 11/16/17 05:13 Acanthocytes (Spur) Not Reportable 11/16/17 05:13 Rouleaux Not Reportable 11/16/17 05:13 Hemoglobin C Crystals Not Reportable 11/16/17 05:13 Schistocytes Not Reportable 11/16/17 05:13 Malaria parasites Not Reportable 11/16/17 05:13 Percent Retic 2.99 % (0.78-2.58) H 11/19/17 08:34 Harshad Bodies Not Reportable 11/16/17 05:13 Haptoglobin 306 mg/dL (43-212) H 11/19/17 09:10 Hem Pathologist Commnt No 11/16/17 05:13 PT 17.4 Sec. (12.2-14.9) H 11/07/17 15:29 INR 1.35 (0.87-1.13) H 11/07/17 15:29 D-Dimer > 31206 ng/mlDDU (0-234) H 11/07/17 15:29 POC ABG pH 7.322 (7.35-7.45) L 11/20/17 16:32 POC ABG pCO2 42.1 (35-45) 11/20/17 16:32 POC ABG pO2 90 (80-105) 11/20/17 16:32 POC ABG HCO3 21.8 11/20/17 16:32 POC ABG Total CO2 23 11/20/17 16:32 POC ABG O2 Sat 96 11/20/17 16:32 POC ABG Base Excess -4 11/20/17 16:32 VBG pH 7.254 (7.320-7.420) L 11/07/17 15:29 Sodium 144 mmol/L (137-145) 11/22/17 04:25 Potassium 5.2 mmol/L (3.6-5.0) H 11/22/17 04:25 Chloride 107.5 mmol/L (98-107) H 11/22/17 04:25 Carbon Dioxide 22 mmol/L (22-30) 11/22/17 04:25 Anion Gap 20 mmol/L 11/22/17 04:25 BUN 92 mg/dL (9-20) H 11/22/17 04:25 Creatinine 5.0 mg/dL (0.8-1.5) H 11/22/17 04:25 Estimated GFR 14 ml/min 11/22/17 04:25 BUN/Creatinine Ratio 18 % 11/22/17 04:25 Glucose 181 mg/dL (75-100) H 11/22/17 04:25 POC Glucose 178 (70-105) H 11/23/17 11:48 Osmolality 355 Mosm/kg 11/12/17 09:13 Lactic Acid 6.60 mmol/L (0.7-2.0) H* 11/07/17 17:44 Uric Acid 3.9 mg/dL (3.5-7.6) 11/12/17 09:13 Calcium 7.4 mg/dL (8.4-10.2) L 11/22/17 04:25 Magnesium 1.90 mg/dL (1.7-2.3) 11/16/17 05:13 Iron 20 ug/dL (49-181) L 11/19/17 08:34 TIBC 76 mcg/dL (250-450) L 11/19/17 08:34 Ferritin 530.1 ng/mL (13.0-400.0) H 11/19/17 09:10 Total Bilirubin 0.40 mg/dL (0.1-1.2) 11/07/17 15:29 AST 39 units/L (5-40) 11/07/17 15:29 ALT 13 units/L (7-56) 11/07/17 15:29 Alkaline Phosphatase 125 units/L (35-129) 11/07/17 15:29 Total Creatine Kinase 900 units/L (55-170) H 11/08/17 23:41 Troponin T 0.037 ng/mL (0.00-0.029) H 11/07/17 15:29 Total Protein 7.3 g/dL (6.3-8.2) 11/07/17 15:29 Albumin 2.4 g/dL (3.9-5) L 11/07/17 15:29 Albumin/Globulin Ratio 0.5 % 11/07/17 15:29 Triglycerides 46 mg/dL (2-149) 11/07/17 15:29 Cholesterol 56 mg/dL (50-199) 11/07/17 15:29 LDL Cholesterol Direct 32 mg/dL (50-130) L 11/07/17 15:29 HDL Cholesterol 15 mg/dL (40-59) L 11/07/17 15:29 Cholesterol/HDL Ratio 3.73 % 11/07/17 15:29 Vitamin B12 1367 pg/mL (211-911) H 11/19/17 08:34 Folate 19.30 ng/mL (7.3-26.0) 11/19/17 09:10 Urine Color Yellow (Yellow) 11/17/17 13:19 Urine Turbidity Cloudy (Clear) 11/17/17 13:19 Urine pH 6.0 (5.0-7.0) 11/17/17 13:19 Ur Specific [place] 1.026 (1.003-1.030) 11/17/17 13:19 Urine Protein <15 mg/dl mg/dL (Negative) 11/17/17 13:19 Urine Glucose (UA) Neg mg/dL (Negative) 11/17/17 13:19 Urine Ketones Neg mg/dL (Negative) 11/17/17 13:19 Urine Blood Sm (Negative) 11/17/17 13:19 Urine Nitrite Neg (Negative) 11/17/17 13:19 Urine Bilirubin Neg (Negative) 11/17/17 13:19 Urine Urobilinogen < 2.0 mg/dL (<2.0) 11/17/17 13:19 Ur Leukocyte Esterase Mod (Negative) 11/17/17 13:19 Urine WBC (Auto) < 1.0 /HPF (0.0-6.0) 11/17/17 13:19 Urine RBC (Auto) < 1.0 /HPF (0.0-6.0) 11/17/17 13:19 U Epithel Cells (Auto) < 1.0 /HPF (0-13.0) 11/07/17 20:10 Urine Bacteria (Auto) 2+ /HPF (Negative) 11/07/17 20:10 Urine WBC Clumps 3+ /HPF 11/07/17 20:10 Ur Yeast w Hyphae 1+ /HPF 11/07/17 20:10 Urine Yeast (Budding) 3+ /HPF 11/07/17 20:10 Urine Eosinophils <5% (None Seen) 11/19/17 06:30 Urine Osmolality 332 Mosm/kg 11/19/17 06:30 Urine Creatinine 34.5 mg/dL (0.1-20.0) H 11/19/17 06:30 Urine Sodium 41 mmol/L 11/19/17 06:30 Fraction Sodium Excret 3.2 11/19/17 06:30 Vancomycin Trough 7.2 ug/mL (5.0-20.0) 11/15/17 18:50 Random Vancomycin 25.8 ug/mL (0-40.0) 11/21/17 03:41 Blood Type O POSITIVE 11/22/17 15:02 Antibody Screen Negative 11/22/17 15:02 Crossmatch See Detail 11/22/17 15:02
[2017-11-22] MEDS ORDERED: NACL 0.9% 500 ML 500 ML IV ONE (13:30)
[2017-11-22] MEDS: AMBIEN FEEDTUBE SCH (22:59)
[2017-11-22] MEDS: ARICEPT FEEDTUBE SCH (22:59)
[2017-11-23 04:43] LABS: Basophils # (Auto) 0.1 K/mm3 (0.0-0.1); Basophils % (Auto) 0.7 % (0.0-1.8); Eosinophils # (Auto) 0.1 K/mm3 (0.0-0.4); Eosinophils % (Auto) 0.8 % (0.0-4.3); Hematocrit 32.8 % (35.5-45.6); Hemoglobin 10.2 gm/dl (11.8-15.2); Lymphocytes # (Auto) 0.9 K/mm3 (1.2-5.4); Lymphocytes % (Auto) 9.8 % (13.4-35.0); Mean Corpuscular HGB Conc 31 % (32-34); Mean Corpuscular Hemoglobin 28 pg (28-32); Mean Corpuscular Volume 91 fl (84-94); Monocytes # (Auto) 1.4 K/mm3 (0.0-0.8); Monocytes % (Auto) 15.3 % (0.0-7.3); Platelet Count 347 K/mm3 (140-440); Red Blood Count 3.59 M/mm3 (3.65-5.03); Red Cell Distribution Width 16.8 % (13.2-15.2)
[2017-11-23] MEDS: NEURONTIN FEEDTUBE SCH ×2 (05:32→13:37)
[2017-11-23] MEDS: ZOSYN/NS 2.25 GM/50ML 2.25 GM/50 ML BAG IV SCH ×2 (05:33→13:35)
[2017-11-23] MEDS: DUONEB *Not for PRN Use IH SCH ×2 (07:50→14:52)
[2017-11-23 07:57] VITALS: BP 105/54
[2017-11-23] MEDS ORDERED: PANCREAZE DR 10,500 UNIT FEEDTUBE PRN (08:17)
[2017-11-23] MEDS ORDERED: SODIUM BICARBONATE FEEDTUBE PRN (08:17)
[2017-11-23] MEDS ORDERED: SIMPLE SYRUP FEEDTUBE PRN ×2 (08:17)
--- NOTE | 2017-11-23 09:23 | Progress Note ---
Assessment and Plan Impression * Acute kidney injury secondary to ATN from hypotension vs sepsis vs VIKTOR * Hypernatremia - resolved * Hyperkalemia - resolved * Pneumonia * Hypertension * Type II diabetes * Coronary artery disease Recommendations * Worsening renal function noted - family has declined dialysis (see nephrology note 11/21) * Continue free water flushes * Avoid nephrotoxins * Strict intake and output * His overall prognosis is poor * Hospice appropriate Subjective Date of service: 11/23/17 Principal diagnosis: CINDI Objective - Vital Signs Vital signs: Vital Signs - 12hr 11/22/17 11/22/17 11/22/17 22:00 23:35 23:50 Temperature 98.4 F 98 F Pulse Rate 94 H 76 Pulse Rate [ Anterior Bilateral Throughout] Pulse Rate [ 98 H Apical] Respiratory 30 H 28 H 28 H Rate Respiratory Rate [Anterior Bilateral Throughout] Blood Pressure 124/63 113/54 O2 Sat by Pulse 96 Oximetry 11/23/17 11/23/17 11/23/17 00:08 00:14 00:17 Temperature 98.5 F 98.4 F Pulse Rate 83 94 H 88 Pulse Rate [ Anterior Bilateral Throughout] Pulse Rate [ Apical] Respiratory 32 H 30 H Rate Respiratory Rate [Anterior Bilateral Throughout] Blood Pressure 125/47 110/55 110/55 O2 Sat by Pulse 95 Oximetry 11/23/17 11/23/17 11/23/17 00:20 00:27 00:30 Temperature 98.3 F 98.3 F Pulse Rate 99 H 94 H 98 H Pulse Rate [ Anterior Bilateral Throughout] Pulse Rate [ Apical] Respiratory 30 H 30 H Rate Respiratory Rate [Anterior Bilateral Throughout] Blood Pressure 115/63 126/60 O2 Sat by Pulse 95 Oximetry 11/23/17 11/23/17 11/23/17 00:50 01:20 01:26 Temperature 98.5 F 97.9 F 97.9 F Pulse Rate 81 98 H 95 H Pulse Rate [ Anterior Bilateral Throughout] Pulse Rate [ Apical] Respiratory 30 H 30 H Rate Respiratory Rate [Anterior Bilateral Throughout] Blood Pressure 111/53 124/60 124/60 O2 Sat by Pulse 95 Oximetry 11/23/17 11/23/17 11/23/17 01:50 02:20 07:39 Temperature 97.8 F 97.9 F 98.7 F Pulse Rate 92 H 94 H 107 H Pulse Rate [ Anterior Bilateral Throughout] Pulse Rate [ Apical] Respiratory 28 H 28 H 22 Rate Respiratory Rate [Anterior Bilateral Throughout] Blood Pressure 130/66 121/61 105/54 O2 Sat by Pulse 97 79 L Oximetry 11/23/17 11/23/17 11/23/17 07:50 07:51 08:10 Temperature Pulse Rate Pulse Rate [ 105 H 105 H Anterior Bilateral Throughout] Pulse Rate [ Apical] Respiratory Rate Respiratory 18 17 Rate [Anterior Bilateral Throughout] Blood Pressure O2 Sat by Pulse 92 Oximetry - Lab 11/23/17 03:45 11/22/17 04:25 Most recent lab results Calcium 7.4 mg/dL (8.4-10.2) L 11/22/17 04:25 Magnesium 1.90 mg/dL (1.7-2.3) 11/16/17 05:13 Urine Creatinine 34.5 mg/dL (0.1-20.0) H 11/19/17 06:30 Urine Sodium 41 mmol/L 11/19/17 06:30
[2017-11-23] MEDS: PLAVIX FEEDTUBE SCH (10:05)
[2017-11-23] MEDS: PEPCID FEEDTUBE SCH (10:05)
[2017-11-23] MEDS: SINEMET FEEDTUBE SCH ×2 (10:05→13:37)
[2017-11-23] MEDS: ELIQUIS FEEDTUBE SCH (10:06)
--- NOTE | 2017-11-23 12:37 | Discharge Summary ---
<BRIA PATEL - Last Filed: 11/24/17 08:11> Providers - Providers Date of Admission: 11/08/17 00:28 Attending physician: NATALIIA ALEJANDRE 11/07/17 20:22 Consult to Physician [CONS] Routine Consulting Provider: BIJAN GONZALEZ Reason For Exam: CINDI, Renal Failure, Hyperkalemia Place consult to:: Dr. Gonzalez Notified:: Kiran RN Phone number called:: Was contact made?: Yes If yes, spoke with:: Marleen-office Time called:: 09:08 11/08/17 14:53 Speech Therapy Evaluation and Treat [CONS] Routine Reason For Exam: dysphagia 11/08/17 14:54 Consult to Dietitian/Nutrition [CONS] Routine Physician Instructions: Reason For Exam: Reason for Consult: tube feed 11/09/17 06:43 Consult to Wound/ET Nurse [CONS] Stat Reason For Exam: wound eval Primary care physician: BOWEN EDGE Hospitalization Condition: Serious Disposition: [id number] HOSPICE ([facility]) Exam - Constitutional Vitals: Temp Pulse Resp BP Pulse Ox 98.7 F 105 H 17 105/54 92 11/23/17 07:39 11/23/17 07:51 11/23/17 07:51 11/23/17 07:39 11/23/17 08:10 Plan Follow up with: BOWEN EDGE MD [Primary Care Provider] - 3-5 Days <NATALIIA ALEJANDRE - Last Filed: 12/11/17 10:17> Providers - Providers Date of Admission: 11/08/17 00:28 Attending physician: NATALIIA ALEJANDRE 11/07/17 20:22 Consult to Physician [CONS] Routine Consulting Provider: BIJAN GONZALEZ Reason For Exam: CINDI, Renal Failure, Hyperkalemia Place consult to:: Dr. Gonzalez Notified:: Kiran RN Phone number called:: Was contact made?: Yes If yes, spoke with:: Marleen-office Time called:: 09:08 11/08/17 14:53 Speech Therapy Evaluation and Treat [CONS] Routine Reason For Exam: dysphagia 11/08/17 14:54 Consult to Dietitian/Nutrition [CONS] Routine Physician Instructions: Reason For Exam: Reason for Consult: tube feed 11/09/17 06:43 Consult to Wound/ET Nurse [CONS] Stat Reason For Exam: wound eval Primary care physician: BOWEN EDGE Core Measure Documentation - Palliative Care Palliative Care/ Comfort Measures: Not Applicable - Core Measures Any of the following diagnoses?: none Exam - Constitutional Vitals: Temp Pulse Resp BP Pulse Ox 98.7 F 106 H 17 105/54 92 11/23/17 07:39 11/23/17 14:53 11/23/17 14:53 11/23/17 07:39 11/23/17 10:00
== END 2017-11-23 15:50 | disposition hospice, inpatient (51) | DRG 871 ==
LOC: ED 14:50 → 4A 11-08 00:28 → 2B-ACE 11-18 17:44 → 4A 11-18 17:52 → 2B-ACE 11-18 18:26
PROVIDERS: ADMIT Internal Medicine; ATTEND Hospitalist
PROC: 4A033R1 Measurement of Arterial Saturation, Peripheral, Percutaneous Approach (ICD-10-PCS; principal; 2017-11-07)
PROC: 5A09557 Assistance with Respiratory Ventilation, Greater than 96 Consecutive Hours, Continuous Positive Airway Pressure (ICD-10-PCS; 2017-11-07)
PROC: 30233N1 Transfusion of Nonautologous Red Blood Cells into Peripheral Vein, Percutaneous Approach (ICD-10-PCS; 2017-11-22)
DX: A41.9 Sepsis, unspecified organism (principal); J69.0 Pneumonitis due to inhalation of food and vomit; N17.0 Acute kidney failure with tubular necrosis; E43 Unspecified severe protein-calorie malnutrition; J96.00 Acute respiratory failure, unspecified whether with hypoxia or hypercapnia; N39.0 Urinary tract infection, site not specified; I82.411 Acute embolism and thrombosis of right femoral vein; I82.431 Acute embolism and thrombosis of right popliteal vein; I82.491 Acute embolism and thrombosis of other specified deep vein of right lower extremity; E87.0 Hyperosmolality and hypernatremia; G20 Parkinson's disease; E87.5 Hyperkalemia; D64.9 Anemia, unspecified; I10 Essential (primary) hypertension; Z86.73 Personal history of transient ischemic attack (TIA), and cerebral infarction without residual deficits; I25.2 Old myocardial infarction; Z98.42 Cataract extraction status, left eye; Z79.899 Other long term (current) drug therapy; Z82.49 Family history of ischemic heart disease and other diseases of the circulatory system; Z79.02 Long term (current) use of antithrombotics/antiplatelets; E11.51 Type 2 diabetes mellitus with diabetic peripheral angiopathy without gangrene; E11.42 Type 2 diabetes mellitus with diabetic polyneuropathy; E86.0 Dehydration; E87.6 Hypokalemia; Z68.25 Body mass index [BMI] 25.0-25.9, adult
CPT/HCPCS: 31720; 36415; 36600; 71010; 74176; 74177; 78580; 80048; 80053; 80061; 80202; 81001; 82140; 82270; 82550; 82565; 82570; 82607; 82728; 82747; 82803; 82805; 82962; 83010; 83550; 83735; 83930; 83935; 84132; 84295; 84300; 84484; 84550; 85007; 85025; 85045; 85379; 85610; 86850; 86900; 86901; 86920; 87040; 87086; 87116; 89050; 93005; 93010; 93970; 94640; 94760; 96374; 96376; 99285; A9540; G8996-GN; G8997-GN; G8998-GN; J0360; J0610; J1644; J1650; J1815; J1956; J2270; J2543; J3370; J3480; J7030; J7040; P9016; Q9967